=== PATIENT | male | born 1960 | race Caucasian/White ===

== ENCOUNTER → 2016-09-26 | Outpatient (CLI) | payer OTHER ==
[~2016-09-26] MED LIST: /CELE20CA OR; AMOX500C OR; BACL10TA2 PO; CELE-19 PO; CETI10TA OR; CLAR5CHW PO; DICL50TA2 PO; DICL75TA PO; GABA-283 PO; GABA300T OR; HEADACHE MED; IBUP200T45 PO; IBUP800T; IBUP800T OR; LISI20TA5; LISI20TA5 OR; LYRI75CA PO; MULTIVIT; OTC ALLERGY MED; OTC ALLERGY MED OR; OXYC-208 PO; OXYC10TA12 PO; PERC5TAB6 PO; PERC5TAB8 OR; PRIL20CA; PRIL20CA OR; PROV90AE IN; RYZOLT; SOMA250T; SOMA250T OR; SOMA350T OR; TIZA4CAP3 PO; TIZA4TAB OR; TRAM50TA2 OR; TRAM50TA2 PO; VICO5TAB; VICO5TAB OR; VICODINES TAB OR; ZANA2CAP OR; ZANA2CAP PO; [UNRECOGNIZED DRUG - CODE]; [UNRECOGNIZED DRUG - REMARK] INH; hydrocodone; pain cream TOP
--- NOTE | 2016-10-02 23:52 | ECWPNPC ---
PATIENT NAME: JASON VILLAFUERTE : 1960 GENDER: MALE VISIT DATE: 09/26/2016 DISCHARGE DATE: 09/26/16 1600 VISIT LOCKED DATE TIME: PHYSICIAN: GLENN BULLARD RESOURCE: GLENN BULLARD REASON FOR APPOINTMENT 1. WC, BACK HISTORY OF PRESENT ILLNESS HISTORY OF PRESENT ILLNESS: PAIN THE PATIENT DESCRIBES THE PAIN... 55 YEAR OLD MALE PATIENT WITH HISTORY OF CHRONIC BACK PAIN. PATIENT DESCRIBES THE PAIN ACHING, SHARP, STABBING, TENDER, THROBBING, SORE, AND HAVING IT ALL THE TIME WITH A PAIN SCORE OF 7/10. 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 PATIENT RECEIVED A SIJ INJECTION ON 08-17-2016 AND REPORTS THAT HE HAD GOOD PAIN RELIEF FOR A MONTH AND THE PAIN THAT RADIATED DOWN TO HIS LEGS FROM HIS BACK IS GONE. PATIENT REPORTS THAT TAKING PERCOCET IF AFFECTING HIS STOMACH AND WOULD LIKE SOMETHING DIFFERENT. PATIENT STATES THAT TAKING TIZANIDINE DOES HELP HIM GREATLY AND INCREASES HIS MOBILITY AND FUNCTIONALITY. PATIENT DENIES UNEXPLAINABLE WEIGHT LOSS, FEVER, CHILLS, NEW CHANGES ON HIS URINARY OR BOWEL CONTROL. FALL RISK SCREENING: SCREENING :NO FALLS IN THE PAST YEAR CURRENT MEDICATIONS TAKING OMEPRAZOLE 20 MG CAPSULE DELAYED RELEASE 1 CAPSULE ORALLY BID TAKING TIZANIDINE HCL 4 MG TABLET 1 TABLET NEEDED ORALLY QHS TAKING LISINOPRIL 5 MG TABLET ORALLY NOT-TAKING PERCOCET 5-325 MG TABLET 1 TABLET NEEDED ORALLY EVERY 6-8 HRS PRN PAIN MDD=3, NOTES: CAUSING NAUSEA, NOT TAKING NOT-TAKING NASAL ALLERGY 5.2 MG/ACT AEROSOL SOLUTION 1 PUFF IN EACH NOSTRIL NEEDED NASALLY EVERY 4 HRS MEDICATION LIST REVIEWED AND RECONCILED WITH THE PATIENT PAST MEDICAL HISTORY NO MEDICAL HISTORY. ALLERGIES ENVIRONMENTAL: HAY FEVER: ALLERGY SURGICAL HISTORY NO SURGICAL HISTORY DOCUMENTED. FAMILY HISTORY NO FAMILY HISTORY DOCUMENTED. SOCIAL HISTORY GENERAL: TOBACCO USE ARE YOU A:CURRENT SMOKER PATIENT COUNSELED ON THE DANGERS OF TOBACCO USE AND URGED TO QUIT:09/26/2016 ARE YOU INTERESTED IN QUITTING?THINKING ABOUT QUITTING COUNSELED THE PATIENT ON SMOKING CESSATION, EDUCATION [id number] CAFFEINE CAFFEINE USE?YES HOW OFTEN AND HOW MUCH? 1 CUP PER DAY LEARNING BARRIERS / SPECIAL NEEDS ORIENTED TO PLAN OF CARE: PATIENT, PAIN MANAGEMENT PATIENT, ORIENTED TO PLAN OF CARE: PATIENT, PAIN MANAGEMENT PATIENT. NEW PATIENT PAIN DIARY TODAY'S VISITNOTES FROM 0-10, WHAT LEVEL IS YOUR PAIN TODAY?0 PAIN CLINIC PFS, CLERGY, PUBLIC HEALTH REFERRALS PFS REFERRAL NEEDED?NO CLERGY REFERRAL NEEDED?NO PUBLIC HEALTH REFERRAL NEEDED?NO WAS THE PROVIDER NOTIFIED OF ANY PERTINENT INFO?NO PFS REFERRAL NEEDED?NO CLERGY REFERRAL NEEDED?NO PUBLIC HEALTH REFERRAL NEEDED?NO WAS THE PROVIDER NOTIFIED OF ANY PERTINENT INFO?NO REVIEWED BY: DS. HOSPITALIZATION/MAJOR DIAGNOSTIC PROCEDURE NO HOSPITALIZATION HISTORY. REVIEW OF SYSTEMS CONSTITUTIONAL: ANY CHANGE IN YOUR MEDICAL CONDITION? NO . CHILLS NO . FEVER NO . INFECTION: DO YOU HAVE NEW INFECTIONS? NO . DO YOU HAVE HISTORY OF MRSA? NO . MUSCULOSKELETAL: ANY NEW PATTERNS OF PAIN OR NUMBNESS? YES, PT STATES THAT LOW BACK PAIN HAS INTENSIFIED AND CONTINUOUS IN RIGHT LOW BACK . GASTROENTEROLOGY: ANY NEW CHANGE IN BOWEL CONTROL? NO . GENITOURINARY: ANY NEW CHANGE IN BLADDER CONTROL? NO . IS THERE A CHANCE YOU COULD BE ? NO . HEMATOLOGY/LYMPH: DO YOU TAKE ANY BLOOD THINNERS? (FOR EXAMPLE- COUMADIN, PLAVIX, AGGRENOX, PLATEL, PRADAXA, OR XARELTO) NO . WHEN WAS YOUR LAST DOSE? DATE: TIME: . NEUROLOGY: HAVE YOU FALLEN IN THE PAST 6 MONTHS? NO . ANY NEW EXTREMITY NUMBNESS OR WEAKNESS? NO . CARDIOLOGY: DO YOU HAVE A PACEMAKER OR DEFIBRILLATOR? NO . RESPIRATORY: HAVE YOU BEEN SICK IN THE PAST WEEK? NO . FEVER NO . FLU LIKE SYMPTOMS? NO . COUGH NO . INTEGUMENTARY: DO YOU HAVE ANY RASHES OR OPEN SORES? NO . ALLERGIC/IMMUNO: ARE YOU ALLERGIC TO SHELLFISH OR IV DYE? NO . ANY NEW ALLERGIES? NO . PSYCHIATRIC: DO YOU HAVE THOUGHTS OF HURTING YOURSELF OR SOMEONE ELSE? NO . ARE YOU ABUSED, NEGLECTED, OR IN AN UNSAFE ENVIRONMENT? NO . ENDOCRINOLOGY: ARE YOU DIABETIC? NO . OTHER: DO YOU NEED ANY PRESCRIPTIONS? YES, PT STATES THAT CURRENT PAIN MEDICATIONS ARE CAUSING NAUSEA. . IF YES, PLEASE LIST: ____ . ANY NEW PROBLEMS WITH YOUR MEDICATIONS? NO . WHEN DID YOU LAST EAT? ____ . WHEN DID YOU LAST DRINK? ____ . WHAT DID YOU LAST DRINK? ____ . NAME OF PERSON DRIVING YOU HOME? ____ . DO YOU HAVE ANY OTHER QUESTIONS OR CONCERNS YES, PT REFUSING ANY SMOKING CESSATION COUSELING AT THIS TIME. . REVIEWED BY: PROVIDER: GLENN BULLARD MD . VITAL SIGNS WT 180 LBS, HT 69 IN, BMI 26.58 INDEX, BP 138/83 MM HG, HR 63 /MIN, RR 16 /MIN, TEMP 99.2 F, OXYGEN SAT % 99%, SAFE IN ENV? (Y/N) Y, NA INITIALS SC 14:29, REVIEWED BY: MERVIN. EXAMINATION : PATIENT IS ALERT O X 3 AND COOPERATIVE. PATIENT AMBULATES WITH AN ANTALGIC GAIT. SURGICAL SCAR IN THE LUMBAR AREA APPROXIMATELY 10 INCHES IN LENGTH. TENDERNESS IN THE LOWER BACK AND PARASPINAL MUSCLE GROUP. RIGHT LEG IS WEAKER THAN THE LEFT AT EXTENSION AND FLEXION. LUMBAR MRI DONE ON 06/09/16 SHOWS MULTIPLE DISC BULGES AND CANAL STENOSIS. ASSESSMENTS POSTLAMINECTOMY SYNDROME, NOT ELSEWHERE CLASSIFIED - M96.1 (PRIMARY) TREATMENT POSTLAMINECTOMY SYNDROME, NOT ELSEWHERE CLASSIFIED NOTES: WE DISCUSSED SEVERAL ISSUES WITH MR. VILLAFUERTE'S PAIN MANAGEMENT CASE. I WILL REFILL TIZANIDINE IT HELPS THE PATIENT WITH INCREASING HIS MOBILITY AND FUNCTIONALITY. PATIENT STATED THAT TAKING PERCOCET UPSETS HIS STOMACH, PATIENT WILL START ON OXYCODONE TODAY. I WILL ORDER URINE TOX TODAY. PATIENT IS A GOOD CANDIDATE FOR A LUMBAR FACET BLOCK THERAPEUTIC. WE DISCUSS THE RISK, ALTERNATIVES, AND BENEFITS AND THE PATIENT WOULD LIKE TO PROCEED. PATIENT WILL BE BOOKED PENDING APPROVAL. PATIENT TO FOLLOW UP WITH ME IN 3 WEEKS. INSTRUCTIONS WERE GIVEN, QUESTIONS WERE ANSWERED, PATIENT REPORTS UNDERSTANDING AND AGREES WITH THE PLAN. I, LUIS EDUARDO RODAS, DOCUMENTED THE ABOVE INFORMATION ACTING A SCRIBE FOR DR. BULLARD. I HAVE REVIEWED THE ABOVE DOCUMENT, WRITTEN BY LUIS EDUARDO [employer] AND I VERIFY THAT IT IS ACCURATE. OTHERS REFILL TIZANIDINE HCL TABLET, 4 MG, 1 TABLET NEEDED, ORALLY, QHS PRN FOR SPASMS AND PAIN MDD1, 30 DAY(S), 20, REFILLS 2 START OXYCODONE HCL TABLET, 5 MG, 1 TABLET, ORALLY, EVERY 6 PRN FOR PAIN MDD3, 30 DAY(S), 90, REFILLS 0 PROCEDURES PN WORKMANS' COMP OPINION IN YOUR OPINION, WAS THE INCIDENT THAT THE PATIENT DESCRIBED THE COMPETENT MEDICAL CAUSE OF THIS INJURY/ILLNESS? YES ARE THE PATIENT'S COMPLAINTS CONSISTENT WITH HIS/HER HISTORY OF THE INJURY/ILLNESS? YES IS THE PATIENT'S HISTORY OF THE INJURY/ILLNESS CONSISTENT WITH YOUR OBJECTIVE FINDING? YES WHAT IS THE PERCENTAGE OF TEMPORARY IMPAIRMENT? MODERATE TO MARKED = 66.7% IS THE PATIENT WORKING? YES DOCTOR ON SITE: GLENN NICHOLS MD PROCEDURE CODES FA211 ESTABILISHED PATIENT [facility] CHARGE G8730 PAIN ASSESS POS TOOL F/U PLAN DOC G8427 DOC MEDS VERIFIED W/PT OR RE FOLLOW UP 3 WEEKS, LFBT PENDING APPROVAL ELECTRONICALLY SIGNED BY GLENN BULLARD MD ON 10/02/2016 AT 08:47 PM EST DISCLAIMER : THIS IS A VISIT SUMMARY EXTRACTED FROM THE [email or web address] CHART. IT IS NOT A COPY OF THE [email or web address] PROGRESS NOTE. RACHEL
== END ==
LOC: M PAIN 14:20
PROVIDERS: ATTEND Anesthesiology
DX: Z09 Encounter for follow-up examination after completed treatment for conditions other than malignant neoplasm (principal); G89.21 Chronic pain due to trauma; M96.1 Postlaminectomy syndrome, not elsewhere classified; J30.89 Other allergic rhinitis; F17.200 Nicotine dependence, unspecified, uncomplicated; Z79.899 Other long term (current) drug therapy

== ENCOUNTER → 2016-11-22 | Outpatient (CLI) | payer OTHER ==
[~2016-11-22] MED LIST changes: +BUPIVACAINE HCL 0.25% 30 ML VIAL As Ordered ONE; +ISOVUE-M 300 61% 15ML VIAL (Q9967) As Ordered ONE; +LIDOCAINE 1% SDV INJ 30 ML VIAL As Ordered ONE; +TRIAMCINOLONE ACETONIDE SUSP 40 MG/ML VIAL (J3301) As Ordered ONE; +diazePAM 5 MG TAB As Ordered ONE; +oxyCODONE 5MG TAB As Ordered ONE
--- NOTE | 2016-11-22 14:01 | REP ---
PARTIAL LUMBAR SPINE SERIES: Four views. HISTORY: Injection procedure for pain. 28 seconds of fluoroscopy time is reported. FINDINGS: A sequence of four fluoroscopically obtained intraprocedural spot radiographs of the lumbar spine document needle position for facet injection procedure. Signed by Tito Bueno MD 11/22/2016 02:20 P
--- NOTE | 2016-11-28 00:07 | ECWPNPC ---
PATIENT NAME: JASON VILLAFUERTE : 1960 GENDER: MALE VISIT DATE: 11/22/2016 DISCHARGE DATE: 11/22/16 1047 VISIT LOCKED DATE TIME: PHYSICIAN: GLENN BULLARD RESOURCE: GLENN BULLARD REASON FOR APPOINTMENT 1. LFBT HISTORY OF PRESENT ILLNESS HISTORY OF PRESENT ILLNESS: PAIN THE PATIENT DESCRIBES THE PAIN... FALL RISK SCREENING: SCREENING :NO FALLS IN THE PAST YEAR CURRENT MEDICATIONS TAKING TIZANIDINE HCL 4 MG TABLET 1 TABLET NEEDED ORALLY QHS PRN FOR SPASMS AND PAIN MDD1, NOTES: 3 DAYS AGO TAKING OMEPRAZOLE 20 MG CAPSULE DELAYED RELEASE 1 CAPSULE ORALLY BID, NOTES: 11-21-16 2100 TAKING OXYCODONE HCL 5 MG TABLET 1 TABLET ORALLY EVERY 6 PRN FOR PAIN MDD3, NOTES: 11-22-16 0500 DISCONTINUED LISINOPRIL 5 MG TABLET ORALLY DISCONTINUED PERCOCET 5-325 MG TABLET 1 TABLET NEEDED ORALLY EVERY 6-8 HRS PRN PAIN MDD=3, NOTES: CAUSING NAUSEA, NOT TAKING DISCONTINUED NASAL ALLERGY 5.2 MG/ACT AEROSOL SOLUTION 1 PUFF IN EACH NOSTRIL NEEDED NASALLY EVERY 4 HRS MEDICATION LIST REVIEWED AND RECONCILED WITH THE PATIENT ALLERGIES ENVIRONMENTAL: HAY FEVER: ALLERGY SOCIAL HISTORY GENERAL: TOBACCO USE ARE YOU A:NONSMOKER LEARNING BARRIERS / SPECIAL NEEDS ORIENTED TO PLAN OF CARE: PATIENT, PAIN MANAGEMENT PATIENT, ORIENTED TO PLAN OF CARE: PATIENT, PAIN MANAGEMENT PATIENT. NEW PATIENT PAIN DIARY TODAY'S VISITNOTES FROM 0-10, WHAT LEVEL IS YOUR PAIN TODAY?0 PAIN CLINIC PFS, CLERGY, PUBLIC HEALTH REFERRALS PFS REFERRAL NEEDED?NO CLERGY REFERRAL NEEDED?NO PUBLIC HEALTH REFERRAL NEEDED?NO WAS THE PROVIDER NOTIFIED OF ANY PERTINENT INFO?NO PFS REFERRAL NEEDED?NO CLERGY REFERRAL NEEDED?NO PUBLIC HEALTH REFERRAL NEEDED?NO WAS THE PROVIDER NOTIFIED OF ANY PERTINENT INFO?NO REVIEW OF SYSTEMS CONSTITUTIONAL: ANY CHANGE IN YOUR MEDICAL CONDITION? NO . CHILLS NO . FEVER NO . INFECTION: DO YOU HAVE NEW INFECTIONS? NO . DO YOU HAVE HISTORY OF MRSA? NO . MUSCULOSKELETAL: ANY NEW PATTERNS OF PAIN OR NUMBNESS? NO . GASTROENTEROLOGY: ANY NEW CHANGE IN BOWEL CONTROL? NO . GENITOURINARY: ANY NEW CHANGE IN BLADDER CONTROL? NO . IS THERE A CHANCE YOU COULD BE ? NO . HEMATOLOGY/LYMPH: DO YOU TAKE ANY BLOOD THINNERS? (FOR EXAMPLE- COUMADIN, PLAVIX, AGGRENOX, PLATEL, PRADAXA, OR XARELTO) NO . WHEN WAS YOUR LAST DOSE? DATE: TIME: . NEUROLOGY: HAVE YOU FALLEN IN THE PAST 6 MONTHS? NO . ANY NEW EXTREMITY NUMBNESS OR WEAKNESS? NO . CARDIOLOGY: DO YOU HAVE A PACEMAKER OR DEFIBRILLATOR? NO . RESPIRATORY: HAVE YOU BEEN SICK IN THE PAST WEEK? NO . FEVER NO . FLU LIKE SYMPTOMS? NO . COUGH NO . INTEGUMENTARY: DO YOU HAVE ANY RASHES OR OPEN SORES? NO . ALLERGIC/IMMUNO: ARE YOU ALLERGIC TO SHELLFISH OR IV DYE? NO . ANY NEW ALLERGIES? NO . PSYCHIATRIC: DO YOU HAVE THOUGHTS OF HURTING YOURSELF OR SOMEONE ELSE? NO . ARE YOU ABUSED, NEGLECTED, OR IN AN UNSAFE ENVIRONMENT? NO . ENDOCRINOLOGY: ARE YOU DIABETIC? NO . OTHER: DO YOU NEED ANY PRESCRIPTIONS? YES . IF YES, PLEASE LIST: OXYCODONE . ANY NEW PROBLEMS WITH YOUR MEDICATIONS? NO . WHEN DID YOU LAST EAT? 11-21-16 PM . WHEN DID YOU LAST DRINK? 11-21-16 PM . WHAT DID YOU LAST DRINK? WATER . NAME OF PERSON DRIVING YOU HOME? RICARDA- DAUGHTER . DO YOU HAVE ANY OTHER QUESTIONS OR CONCERNS NO . REVIEWED BY: PROVIDER: . VITAL SIGNS WT 180 LBS, HT 69 IN, BMI 26.58 INDEX, BP 133/83 MM HG, HR 54 /MIN, RR 16 /MIN, TEMP 98.3 F, OXYGEN SAT % 99%, NA INITIALS SC 08:52, REVIEWED BY: CM. ASSESSMENTS SPONDYLOSIS WITHOUT MYELOPATHY OR RADICULOPATHY, LUMBAR REGION - M47.816 (PRIMARY) SPONDYLOSIS WITHOUT MYELOPATHY OR RADICULOPATHY, LUMBOSACRAL REGION - M47.817 TREATMENT OTHERS REFILL OXYCODONE HCL TABLET, 5 MG, 1 TABLET, ORALLY, EVERY 6 PRN FOR PAIN MDD3, 30 DAY(S), 90, REFILLS 0, NOTES: 11-22-16 0500 PROCEDURES PN LUMBAR FACET BLOCK THERAPEUTIC PRE PROCEDURE DIAGNOSIS : , LUMBAR SPONDYLOSIS , LUMBOSACRAL SPONDYLOSIS POST PROCEDURE DIAGNOSIS : LUMBAR SPONDYLOSIS, LUMBOSACRAL SPONDYLOSIS PROCEDURE BILATERAL L4-L5 AND BILATERAL L5-S1 FACET THERAPEUTIC BLOCK SURGEON DR. GLENN BULLARD NEWS VIDEOTAPE EDITOR NONE ANESTHESIA LOCAL PRE PROCEDURE NOTE THE PATIENT HAS A HISTORY OF CHRONIC LOW BACK PAIN. I EVALUATE THE PATIENT AND REVIEWED THE CHART. I WENT OVER THE RISKS, ALTERNATIVES, AND BENEFITS ASSOCIATED WITH THIS PROCEDURE. THE PATIENT WOULD LIKE TO PROCEED AND GIVE CONSENT TO PERFORMED THE PROCEDURE. THE PATIENT DENIES UNEXPLAINABLE WEIGHT LOSS, FEVER, CHILLS, OR NEW CHANGES IN URINARY OR BOWEL CONTROL DESCRIPTION OF PROCEDURE THE PATIENT WAS BROUGHT TO THE PROCEDURE ROOM AND PLACED IN THE PRONE POSITION. THE LUMBOSACRAL AREA WAS CLEANED WITH CHLORAPREP SOLUTION AND DRAPED ASEPTICALLY. THE PROCEDURE WAS DONE UNDER STERILE CONDITIONS. I CHECKED LATERALITY AND THE LEVEL WHERE THE PROCEDURE WAS GOING TO BE PERFORMED WITH THE PATIENT AND THE SUPPORTING STAFF AT THE MOMENT OF THE TIME OUT IN THE PROCEDURE ROOM. UNDER FLUOROSCOPIC GUIDANCE, THE TARGET POINT WAS SELECTED AT THE RIGHT AND LEFT L4-L5 AND RIGHT AND LEFT L5-S1 FACET JOINT. TARGET POINT WAS SELECTED AFTER LATERAL ROTATION AND TILT OF THE MAGNIFIER OF THE C-ARM. LIDOCAINE 0.5% WAS USED TO NUMB THE SKIN AND THE SUBCUTANEOUS TISSUE BELOW IT. SPINAL NEEDLES, 22-GAUGE, WERE ADVANCED UNDER FLUOROSCOPIC GUIDANCE AND FOLLOWING PATIENT FEEDBACK UNTIL THE TARGETS WERE TOUCHED. THE POSITION OF THE NEEDLES WAS VERIFIED WITH AP AND LATERAL VIEWS. AFTER PROPER POSITION OF THE NEEDLES WAS ACHIEVED, ISOVUE-M DYE 30% 0.1 ML WAS INJECTED SHOWING ADEQUATE SPREAD OF THE DYE. THEN A SOLUTION OF 1.9 ML OF BUPIVACAINE 0.125% OF KENALOG 10 MG WAS INJECTED AT EACH SITE. THERE WAS NO EVIDENCE OF BLOOD, PARESTHESIA OR CEREBROSPINAL FLUID DURING THE PROCEDURE. THE PATIENT WAS SENT TO THE RECOVERY ROOM. THE PATIENT WAS MOVING THE EXTREMITIES AND DOING WELL. THERE WAS NO COMPLICATION DURING THE PROCEDURE. FLUOROSCOPY TIME WAS 28 SECONDS POST PROCEDURE NOTE THE PATIENT WILL BE SEEN IN A FOLLOW UP IN THE NEXT FEW WEEKS. INSTRUCTIONS WERE GIVEN, QUESTIONS WERE ANSWERED, AND THE PATIENT EXPRESSED UNDERSTANDING AND AGREES WITH THE PLAN. INSTRUCTIONS WERE GIVEN, QUESTIONS WERE ANSWERED, PATIENT REPORTS UNDERSTANDING AND AGREES WITH THE PLAN. I, ULIS EDUARDO RODAS, DOCUMENTED THE ABOVE INFORMATION ACTING A SCRIBE FOR DR. BULLARD. I HAVE REVIEWED THE ABOVE DOCUMENT, WRITTEN BY LUIS EDUARDO [employer] AND I VERIFY THAT IT IS ACCURATE. PN WORKMANS' COMP OPINION IN YOUR OPINION, WAS THE INCIDENT THAT THE PATIENT DESCRIBED THE COMPETENT MEDICAL CAUSE OF THIS INJURY/ILLNESS? YES ARE THE PATIENT'S COMPLAINTS CONSISTENT WITH HIS/HER HISTORY OF THE INJURY/ILLNESS? YES IS THE PATIENT'S HISTORY OF THE INJURY/ILLNESS CONSISTENT WITH YOUR OBJECTIVE FINDING? YES WHAT IS THE PERCENTAGE OF TEMPORARY IMPAIRMENT? MODERATE TO MARKED = 66.7% IS THE PATIENT WORKING? NO DOCTOR ON SITE: GLENN NICHOLS MD DIAGNOSTIC IMAGING [facility] FACET BLOCK (PAIN)[id number] PROCEDURE CODES 42766 INJ PARAVERT F JNT L/S 1 LEV 18579 INJ PARAVERT F JNT L/S 2 LEV 6045F RADXPS IN END [id number] PXD DISPOSITION & COMMUNICATION FOLLOW UP 3 WEEKS ELECTRONICALLY SIGNED BY GLENN BULLARD MD ON 11/27/2016 AT 05:25 PM EDT DISCLAIMER : THIS IS A VISIT SUMMARY EXTRACTED FROM THE [employer] CHART. IT IS NOT A COPY OF THE [employer] PROGRESS NOTE. RACHEL
== END ==
LOC: M PAIN 09:00
PROVIDERS: ATTEND Anesthesiology
DX: G89.29 Other chronic pain (principal); M47.816 Spondylosis without myelopathy or radiculopathy, lumbar region; M47.817 Spondylosis without myelopathy or radiculopathy, lumbosacral region; J30.89 Other allergic rhinitis; Z79.891 Long term (current) use of opiate analgesic; Z79.899 Other long term (current) drug therapy
CPT/HCPCS: 64493; 64494; J3301; Q9967

== ENCOUNTER → 2016-12-29 | Outpatient (CLI) | payer OTHER ==
[~2016-12-29] MED LIST changes: -BUPIVACAINE HCL 0.25% 30 ML VIAL As Ordered ONE; -ISOVUE-M 300 61% 15ML VIAL (Q9967) As Ordered ONE; -LIDOCAINE 1% SDV INJ 30 ML VIAL As Ordered ONE; -TRIAMCINOLONE ACETONIDE SUSP 40 MG/ML VIAL (J3301) As Ordered ONE; -diazePAM 5 MG TAB As Ordered ONE; -oxyCODONE 5MG TAB As Ordered ONE
== END ==
LOC: M PAIN 15:00
PROVIDERS: ATTEND Anesthesiology
DX: Z53.29 Procedure and treatment not carried out because of patient's decision for other reasons (principal)

== ENCOUNTER → 2017-01-26 | Outpatient (CLI) | payer OTHER ==
--- NOTE | 2017-02-07 02:29 | ECWPNPC ---
PATIENT NAME: JASON VILLAFUERTE : 1960 GENDER: MALE VISIT DATE: 01/26/2017 DISCHARGE DATE: 01/26/17 1557 VISIT LOCKED DATE TIME: PHYSICIAN: GLENN BULLARD RESOURCE: GLENN BULLARD REASON FOR APPOINTMENT 1. WC HISTORY OF PRESENT ILLNESS GENERAL: 55 YEAR OLD MALE PATIENT WITH HISTORY OF CHRONIC BACK PAIN. PATIENT DESCRIBES THE PAIN ACHING, SHARP, STABBING, TENDER, THROBBING, SORE, AND SHOOTING WITH A PAIN SCORE OF 3-4/10 ON TODAY'S VISIT. 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 PATIENT REPORTS OF HAVING 3 BACK SURGERIES IN THE PAST. PATIENT STATES THAT HE TRIED PHYSICAL THERAPY IN THE PAST AND IT HELPED FOR A BIT AND HE DOES PHYSICAL THERAPY EXERCISES AT HOME. PATIENT RECEIVED A BILATERAL FACET BLOCK THERAPEUTIC INJECTION ON 11/22/2016 AND STATES THAT THE INJECTION PROVIDED OVER 50 PERCENT OF PAIN RELIEF AND AT THIS TIME HE IS STILL BENEFITTING FROM THE INJECTION WITH INCREASED MOBILITY AND FUNCTIONALITY AND HE IS SLEEPING A LITTLE BIT BETTER. PATIENT DENIES UNEXPLAINABLE WEIGHT LOSS, FEVER, CHILLS, NEW CHANGES ON HIS URINARY OR BOWEL CONTROL. CURRENT MEDICATIONS TAKING TIZANIDINE HCL 4 MG TABLET 1 TABLET NEEDED ORALLY QHS PRN FOR SPASMS AND PAIN MDD1 TAKING OMEPRAZOLE 20 MG CAPSULE DELAYED RELEASE 1 CAPSULE ORALLY BID TAKING OXYCODONE HCL 5 MG TABLET 1 TABLET ORALLY EVERY 6 PRN FOR PAIN MDD3 MEDICATION LIST REVIEWED AND RECONCILED WITH THE PATIENT ALLERGIES ENVIRONMENTAL: HAY FEVER: ALLERGY VITAL SIGNS WT 180 LBS, HT 69 IN, BMI 26.58 INDEX, BP 137/96 MM HG, HR 72 /MIN, RR 16 /MIN, TEMP 98.3 F, OXYGEN SAT % 93%, NA INITIALS AW 1505. EXAMINATION GENERAL: PATIENT IS ALERT O X 3 AND COOPERATIVE. PATIENT AMBULATES WITH AN ANTALGIC GAIT. SURGICAL SCAR IN THE LUMBAR AREA APPROXIMATELY 10 INCHES IN LENGTH. TENDERNESS IN THE LOWER BACK AND PARASPINAL MUSCLE GROUP. LUMBAR MRI DONE ON 06/09/16 SHOWS MULTIPLE DISC BULGES AND CANAL STENOSIS. ASSESSMENTS POSTLAMINECTOMY SYNDROME, NOT ELSEWHERE CLASSIFIED - M96.1 (PRIMARY) TREATMENT POSTLAMINECTOMY SYNDROME, NOT ELSEWHERE CLASSIFIED NOTES: WE DISCUSSED SEVERAL ISSUES WITH MR. VILLAFUERTE'S PAIN MANAGEMENT CASE. PATIENT WILL RECEIVED A REFILL OF TIZANIDINE, OMEPRAZOLE, AND OXYCODONE. PATIENT IS TAKING TIZANIDINE AND OXYCODONE FOR SOMATIC PAIN. PATIENT EXPRESSES THAT HIS PAIN IS CONTROLLABLE AT THIS TIME AND IS DOING WELL, PATIENT WILL FOLLOW UP WITH ME IN 10 WEEKS. INSTRUCTIONS WERE GIVEN, QUESTIONS WERE ANSWERED, PATIENT REPORTS UNDERSTANDING AND AGREES WITH THE PLAN. I, LUIS EDUARDO RODAS, DOCUMENTED THE ABOVE INFORMATION ACTING A SCRIBE FOR DR. BULLARD. I HAVE REVIEWED THE ABOVE DOCUMENT, WRITTEN BY LUIS EDUARDO RODAS SCRIBE AND I VERIFY THAT IT IS ACCURATE. OTHERS REFILL TIZANIDINE HCL TABLET, 4 MG, 1 TABLET NEEDED, ORALLY, QHS PRN FOR SPASMS AND PAIN MDD1, 30 DAY(S), 20, REFILLS 2 REFILL OMEPRAZOLE CAPSULE DELAYED RELEASE, 20 MG, 1 CAPSULE, ORALLY, BID, 30 DAY(S), 60 CAPSULE, REFILLS 2 REFILL OXYCODONE HCL TABLET, 5 MG, 1 TABLET, ORALLY, EVERY 6 PRN FOR PAIN MDD4, 30 DAY(S), 90, REFILLS 0 PROCEDURES PN WORKMANS' COMP OPINION IN YOUR OPINION, WAS THE INCIDENT THAT THE PATIENT DESCRIBED THE COMPETENT MEDICAL CAUSE OF THIS INJURY/ILLNESS? YES ARE THE PATIENT'S COMPLAINTS CONSISTENT WITH HIS/HER HISTORY OF THE INJURY/ILLNESS? YES IS THE PATIENT'S HISTORY OF THE INJURY/ILLNESS CONSISTENT WITH YOUR OBJECTIVE FINDING? YES WHAT IS THE PERCENTAGE OF TEMPORARY IMPAIRMENT? MODERATE TO MARKED = 66.7% IS THE PATIENT WORKING? YES DOCTOR ON SITE: GLENN NICHOLS MD PROCEDURE CODES FA211 ESTABILISHED PATIENT [facility] FACILITY CHARGE G8730 PAIN ASSESS POS TOOL F/U PLAN DOC G8427 DOC MEDS VERIFIED W/PT OR RE DISPOSITION & COMMUNICATION FOLLOW UP 10 WEEK ELECTRONICALLY SIGNED BY GLENN BULLARD MD ON 02/06/2017 AT 07:47 PM EDT DISCLAIMER : THIS IS A VISIT SUMMARY EXTRACTED FROM THE [employer] CHART. IT IS NOT A COPY OF THE [employer] PROGRESS NOTE. RACHEL
== END ==
LOC: M PAIN 15:00
PROVIDERS: ATTEND Anesthesiology
DX: M96.1 Postlaminectomy syndrome, not elsewhere classified (principal); J30.89 Other allergic rhinitis; Z79.891 Long term (current) use of opiate analgesic; Z79.899 Other long term (current) drug therapy

== ENCOUNTER → 2017-04-13 | Outpatient (CLI) | payer OTHER ==
[~2017-04-13] MED LIST changes: -CELE-19 PO; +CELE1CAP4 PO; +PERC5TAB12 PO; -PERC5TAB6 PO
--- NOTE | 2017-05-02 02:02 | ECWPNPC ---
PATIENT NAME: JASON VILLAFUERTE : 1960 GENDER: MALE VISIT DATE: 04/13/2017 DISCHARGE DATE: 04/13/17 1611 VISIT LOCKED DATE TIME: PHYSICIAN: GLENN BULLARD RESOURCE: GLENN BULLARD REASON FOR APPOINTMENT 1. W/C BACK PAIN HISTORY OF PRESENT ILLNESS HISTORY OF PRESENT ILLNESS: PAIN THE PATIENT DESCRIBES THE PAIN... 55 YEAR OLD MALE PATIENT WITH HISTORY OF CHRONIC BACK PAIN. PATIENT DESCRIBES THE PAIN ACHING, SHARP, STABBING, TENDER, THROBBING, SORE, AND SHOOTING WITH A PAIN SCORE OF 3-4/10 ON TODAY'S VISIT. 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 PATIENT WAS WORKING ON A [employer] FENCE WHEN HE WENT OVER THE TOP AND FELL, TWISTING AND INJURING HIS BACK. PATIENT REPORTS OF HAVING 3 BACK SURGERIES IN THE PAST. PATIENT STATES THAT HE TRIED PHYSICAL THERAPY IN THE PAST AND IT HELPED FOR A BIT AND HE DOES PHYSICAL THERAPY EXERCISES AT HOME. PATIENT RECEIVED A BILATERAL FACET BLOCK THERAPEUTIC INJECTION ON 11/22/2016 AND STATES THAT THE INJECTION PROVIDED OVER 50 PERCENT OF PAIN RELIEF FOR OVER 3 MONTHS AND AT THIS TIME HE IS STILL BENEFITTING FROM THE INJECTION WITH INCREASED MOBILITY AND FUNCTIONALITY AND HE IS SLEEPING A LITTLE BIT BETTER. PATIENT DENIES UNEXPLAINABLE WEIGHT LOSS, FEVER, CHILLS, NEW CHANGES ON HIS URINARY OR BOWEL CONTROL. FALL RISK SCREENING: SCREENING :NO FALLS IN THE PAST YEAR CURRENT MEDICATIONS TAKING TIZANIDINE HCL 4 MG TABLET 1 TABLET NEEDED ORALLY QHS PRN FOR SPASMS AND PAIN MDD1 TAKING OMEPRAZOLE 20 MG CAPSULE DELAYED RELEASE 1 CAPSULE ORALLY BID TAKING OXYCODONE HCL 5 MG TABLET 1 TABLET ORALLY EVERY 6 PRN FOR PAIN MDD4 TAKING AMLODIPINE BESYLATE 5 MG TABLET 1 TABLET ORALLY ONCE A DAY MEDICATION LIST REVIEWED AND RECONCILED WITH THE PATIENT ALLERGIES ENVIRONMENTAL: HAY FEVER: ALLERGY REVIEW OF SYSTEMS REVIEWED BY: PROVIDER: GLENN BULLARD MD . CONSTITUTIONAL: ANY CHANGE IN YOUR MEDICAL CONDITION? NO . CHILLS NO . FEVER NO . INFECTION: DO YOU HAVE NEW INFECTIONS? NO . DO YOU HAVE HISTORY OF MRSA? NO . MUSCULOSKELETAL: ANY NEW PATTERNS OF PAIN OR NUMBNESS? YES PT REPORTS HIS PAIN FLUCTUATES, HE STATES PAIN IS WORSE IN THE MORNING. . GASTROENTEROLOGY: ANY NEW CHANGE IN BOWEL CONTROL? NO . GENITOURINARY: ANY NEW CHANGE IN BLADDER CONTROL? NO . IS THERE A CHANCE YOU COULD BE ? NO . HEMATOLOGY/LYMPH: DO YOU TAKE ANY BLOOD THINNERS? (FOR EXAMPLE- COUMADIN, PLAVIX, AGGRENOX, PLATEL, PRADAXA, OR XARELTO) NO . WHEN WAS YOUR LAST DOSE? DATE: TIME: . NEUROLOGY: HAVE YOU FALLEN IN THE PAST 6 MONTHS? NO . ANY NEW EXTREMITY NUMBNESS OR WEAKNESS? NO . CARDIOLOGY: DO YOU HAVE A PACEMAKER OR DEFIBRILLATOR? NO . RESPIRATORY: HAVE YOU BEEN SICK IN THE PAST WEEK? NO . FEVER NO . FLU LIKE SYMPTOMS? NO . COUGH NO . INTEGUMENTARY: DO YOU HAVE ANY RASHES OR OPEN SORES? NO . ALLERGIC/IMMUNO: ARE YOU ALLERGIC TO SHELLFISH OR IV DYE? NO . ANY NEW ALLERGIES? NO . PSYCHIATRIC: DO YOU HAVE THOUGHTS OF HURTING YOURSELF OR SOMEONE ELSE? NO . ARE YOU ABUSED, NEGLECTED, OR IN AN UNSAFE ENVIRONMENT? NO . ENDOCRINOLOGY: ARE YOU DIABETIC? NO . OTHER: DO YOU NEED ANY PRESCRIPTIONS? NO . IF YES, PLEASE LIST: ____ . ANY NEW PROBLEMS WITH YOUR MEDICATIONS? NO . WHEN DID YOU LAST EAT? ____ . WHEN DID YOU LAST DRINK? ____ . WHAT DID YOU LAST DRINK? ____ . NAME OF PERSON DRIVING YOU HOME? ____ . DO YOU HAVE ANY OTHER QUESTIONS OR CONCERNS NO . VITAL SIGNS WT 180 LBS, HT 69 IN, BMI 26.58 INDEX, BP 150/92 MM HG, HR 57 /MIN, RR 18 /MIN, TEMP 97.6 F, OXYGEN SAT % 99%, SAFE IN ENV? (Y/N) YES, NA INITIALS 15:15, REVIEWED BY: AMBAR. EXAMINATION : PATIENT IS ALERT O X 3 AND COOPERATIVE. PATIENT AMBULATES WITH AN ANTALGIC GAIT. SURGICAL SCAR IN THE LUMBAR AREA APPROXIMATELY 10 INCHES IN LENGTH. TENDERNESS IN THE LOWER BACK AND PARASPINAL MUSCLE GROUP. LUMBAR MRI DONE ON 06/09/16 SHOWS MULTIPLE DISC BULGES AND CANAL STENOSIS. ASSESSMENTS POSTLAMINECTOMY SYNDROME, NOT ELSEWHERE CLASSIFIED - M96.1 (PRIMARY) SPONDYLOSIS WITHOUT MYELOPATHY OR RADICULOPATHY, LUMBAR REGION - M47.816 SPONDYLOSIS WITHOUT MYELOPATHY OR RADICULOPATHY, LUMBOSACRAL REGION - M47.817 TREATMENT POSTLAMINECTOMY SYNDROME, NOT ELSEWHERE CLASSIFIED NOTES: WE DISCUSSED SEVERAL ISSUES WITH MR. VILLAFUERTE'S PAIN MANAGEMENT CASE. PATIENT WILL RECEIVED A REFILL OF TIZANIDINE, OMEPRAZOLE, AND OXYCODONE. PATIENT IS TAKING TIZANIDINE AND OXYCODONE FOR SOMATIC PAIN. PATIENT DENIES ABUSE OF ANY MEDICATION, DENIES USE OF ILLEGAL SUBSTANCES, AND STATES THAT HE IS ONLY USING THE MEDICATION FOR PAIN MANAGEMENT. URINE TOXICOLOGY REPORT DONE ON 09/26/16 SHOWS CONSISTENT RESULTS WITH THE PATIENTS MEDICATION LIST. PATIENT EXPRESSES THAT HIS PAIN IS CONTROLLABLE AT THIS TIME AND IS DOING WELL, PATIENT WILL FOLLOW UP WITH ME IN 10 WEEKS. INSTRUCTIONS WERE GIVEN, QUESTIONS WERE ANSWERED, PATIENT REPORTS UNDERSTANDING AND AGREES WITH THE PLAN. I, KAZ VERMA, DOCUMENTED THE ABOVE INFORMATION ACTING A SCRIBE FOR DR. BULLARD. I HAVE REVIEWED THE ABOVE DOCUMENT, WRITTEN BY KAZ FALL AND I VERIFY THAT IT IS ACCURATE. OTHERS REFILL TIZANIDINE HCL TABLET, 4 MG, 1 TABLET NEEDED, ORALLY, QHS PRN FOR SPASMS AND PAIN MDD1, 30 DAY(S), 20, REFILLS 2 REFILL OXYCODONE HCL TABLET, 5 MG, 1 TABLET, ORALLY, EVERY 6 PRN FOR PAIN MDD4, 30 DAY(S), 90, REFILLS 0 PROCEDURES PN WORKMANS' COMP OPINION IN YOUR OPINION, WAS THE INCIDENT THAT THE PATIENT DESCRIBED THE COMPETENT MEDICAL CAUSE OF THIS INJURY/ILLNESS? YES ARE THE PATIENT'S COMPLAINTS CONSISTENT WITH HIS/HER HISTORY OF THE INJURY/ILLNESS? YES IS THE PATIENT'S HISTORY OF THE INJURY/ILLNESS CONSISTENT WITH YOUR OBJECTIVE FINDING? YES WHAT IS THE PERCENTAGE OF TEMPORARY IMPAIRMENT? MODERATE TO MARKED = 66.7% IS THE PATIENT WORKING? YES DOCTOR ON SITE: GLENN NICHOLS MD PROCEDURE CODES FA211 ESTABILISHED PATIENT [facility] FACILITY CHARGE G8427 DOC MEDS VERIFIED W/PT OR RE G8730 PAIN ASSESS POS TOOL F/U PLAN DOC DISPOSITION & COMMUNICATION FOLLOW UP 3 MONTHS ELECTRONICALLY SIGNED BY GLENN BULLARD MD ON 04/30/2017 AT 07:05 PM EDT DISCLAIMER : THIS IS A VISIT SUMMARY EXTRACTED FROM THE [employer] CHART. IT IS NOT A COPY OF THE [employer] PROGRESS NOTE. [facility]
== END ==
LOC: M PAIN 15:00
PROVIDERS: ATTEND Anesthesiology
DX: M96.1 Postlaminectomy syndrome, not elsewhere classified (principal); M47.816 Spondylosis without myelopathy or radiculopathy, lumbar region; M47.817 Spondylosis without myelopathy or radiculopathy, lumbosacral region; J30.2 Other seasonal allergic rhinitis; Z79.891 Long term (current) use of opiate analgesic; Z79.899 Other long term (current) drug therapy

== ENCOUNTER → 2017-09-18 | Outpatient (CLI) | payer OTHER | LOC: M PAIN 09:00 | DX: M96.1 Postlaminectomy syndrome, not elsewhere classified (principal); M47.816 Spondylosis without myelopathy or radiculopathy, lumbar region; M47.817 Spondylosis without myelopathy or radiculopathy, lumbosacral region; Z79.891 Long term (current) use of opiate analgesic; Z79.899 Other long term (current) drug therapy; Z87.891 Personal history of nicotine dependence; J30.2 Other seasonal allergic rhinitis | CPT/HCPCS: G0463 ==

== ENCOUNTER 2017-10-20 19:31 | Emergency (ER) | payer OTHER ==
[2017-10-20] MEDS: ONDANSETRON 4MG/2ML VIAL (J2405) IV (20:33)
[2017-10-20] MEDS: MORPHINE 4 MG/ML 1ML VIAL (J2270) IV (20:33)
[2017-10-20 20:48] LABS: BASO # 0.1 10^3/uL (0.0-0.2); BASO % 1.1 % (0.0-1.0); EOS # 0.9 10^3/uL (0.0-0.50); EOS % 9.6 % (0.0-3.0); HEMATOCRIT 41.5 % (42.0-52.0); HEMOGLOBIN 13.9 g/dl (14.0-18.0); IMMATURE GRANULOCYTE % 0.1 % (0-3.0); LYMPH # 3.6 10^3/uL (1.5-4.5); MEAN CORPUSCULAR HEMOGLOBIN 27.4 pg (27.0-33.0); MEAN CORPUSCULAR HGB CONC 33.5 g/dl (32.0-36.5); MEAN CORPUSCULAR VOLUME 81.7 fl (80.0-96.0); MONO # 0.9 10^3/uL (0.0-0.8); MONO % 10.3 % (0.0-5.0); NEUTROPHILS # 3.5 10^3/uL (1.8-7.7); NEUTROPHILS % 38.9 % (36.0-66.0); PLATELET COUNT, AUTOMATED 279 10^3/uL (150-450); RED BLOOD COUNT 5.08 10^6/uL (4.30-6.10); RED CELL DISTRIBUTION WIDTH 14.2 % (11.5-14.5); WHITE BLOOD COUNT 9.1 10^3/uL (4.0-10.0)
[2017-10-20 21:01] LABS: ALBUMIN/GLOBULIN RATIO 1.08 (1.00-1.93); ALKALINE PHOSPHATASE 79 U/L (45-117); ALT/SGPT 125 U/L (12-78); ANION GAP 11 MEQ/L (8-16); AST/SGOT 64 U/L (7-37); BILIRUBIN,DIRECT 0.3 MG/DL (0.0-0.2); BILIRUBIN,TOTAL 0.9 MG/DL (0.2-1.0); BLOOD UREA NITROGEN 13 MG/DL (7-18); CALCIUM LEVEL 8.8 MG/DL (8.5-10.1); CARBON DIOXIDE LEVEL 25 MEQ/L (21-32); CHLORIDE LEVEL 105 MEQ/L (98-107); CREATININE FOR GFR 0.94 MG/DL (0.70-1.30); GLOMERULAR FILTRATION RATE > 60.0 (>56); GLUCOSE, FASTING 90 MG/DL (70-100); LIPASE 325 U/L (73-393); POTASSIUM SERUM 3.7 MEQ/L (3.5-5.1); SODIUM LEVEL 141 MEQ/L (136-145); TOTAL PROTEIN 7.7 GM/DL (6.4-8.2)
[2017-10-20] MEDS ORDERED: ISOVUE-370 76% 100ML VIAL (Q9967) As Ordered (21:14)
== END 2017-10-20 22:46 | disposition home or self-care (01) ==
LOC: M ED 19:31
DX: K85.90 Acute pancreatitis without necrosis or infection, unspecified (principal); G89.29 Other chronic pain; M54.9 Dorsalgia, unspecified; F17.200 Nicotine dependence, unspecified, uncomplicated; K57.30 Diverticulosis of large intestine without perforation or abscess without bleeding; K76.0 Fatty (change of) liver, not elsewhere classified; N40.0 Benign prostatic hyperplasia without lower urinary tract symptoms; Z79.899 Other long term (current) drug therapy; Z88.8 Allergy status to other drugs, medicaments and biological substances
CPT/HCPCS: J2270

== ENCOUNTER 2018-01-12 15:45 | Emergency (ER) | payer OTHER ==
[2018-01-12] MEDS: diazePAM 5 MG TAB PO ×2 (17:01→18:00)
[2018-01-12] MEDS: ONDANSETRON 4MG/2ML VIAL (J2405) IV (17:02)
[2018-01-12] MEDS: MORPHINE 4 MG/ML 1ML VIAL/SYRINGE (J2270) IV (17:02)
[2018-01-12] MEDS: KETOROLAC 30 MG/ML VIAL (J1885) IV (17:02)
== END 2018-01-12 18:13 | disposition home or self-care (01) ==
LOC: M ED 15:45
DX: S16.1XXA Strain of muscle, fascia and tendon at neck level, initial encounter (principal); M54.12 Radiculopathy, cervical region; W19.XXXA Unspecified fall, initial encounter; Y92.099 Unspecified place in other non-institutional residence as the place of occurrence of the external cause; Y93.9 Activity, unspecified; Y99.9 Unspecified external cause status; I10 Essential (primary) hypertension; G89.29 Other chronic pain; M54.9 Dorsalgia, unspecified; F17.200 Nicotine dependence, unspecified, uncomplicated; J30.2 Other seasonal allergic rhinitis; Z79.899 Other long term (current) drug therapy; Z88.8 Allergy status to other drugs, medicaments and biological substances
CPT/HCPCS: J2270

== ENCOUNTER → 2018-01-18 | Outpatient (CLI) | payer OTHER | LOC: M PAIN 15:30 | DX: G89.29 Other chronic pain (principal); M96.1 Postlaminectomy syndrome, not elsewhere classified; M46.90 Unspecified inflammatory spondylopathy, site unspecified; M54.16 Radiculopathy, lumbar region; K21.9 Gastro-esophageal reflux disease without esophagitis; J30.1 Allergic rhinitis due to pollen; I10 Essential (primary) hypertension; Z79.891 Long term (current) use of opiate analgesic; Z79.899 Other long term (current) drug therapy; Z87.891 Personal history of nicotine dependence | CPT/HCPCS: G0463 ==

== ENCOUNTER 2018-08-30 22:04 | Emergency (ER) | payer OTHER ==
[~2018-08-30] VITALS: Ht 172.7 cm; Wt 84.1 kg
[~2018-08-30 22:04] MED LIST changes: +AMLO5TAB6 PO; -GABA-283 PO; +GABA-845 PO; +IBUP80TA PO; +TIZA4CAP PO; -TIZA4CAP3 PO; +VALI5TAB PO
[2018-08-30] MEDS ORDERED: KETOROLAC 60 MG/2 ML VIAL (J1885) IM ONE (23:00)
[2018-08-30 23:06] LABS: HEMATOCRIT 38.8 % (42.0-52.0); HEMOGLOBIN 12.9 g/dl (13.5-17.5); MEAN CORPUSCULAR HEMOGLOBIN 29.5 pg (27.0-33.0); MEAN CORPUSCULAR HGB CONC 33.2 g/dl (32.0-36.5); MEAN CORPUSCULAR VOLUME 88.8 fl (80.0-96.0); PLATELET COUNT, AUTOMATED 216 10^3/uL (150-450); RED BLOOD COUNT 4.37 10^6/uL (4.30-6.10); WHITE BLOOD COUNT 8.3 10^3/uL (4.0-10.0)
[2018-08-30 23:27] LABS: ERYTHROCYTE SEDIMENTATION RATE 4 mm/hr (0-20)
[2018-08-30 23:48] LABS: BLOOD UREA NITROGEN 20 MG/DL (7-18); C REACTIVE PROTEIN QUANTITATIV 1.15 MG/DL (0.00-0.30); CALCIUM LEVEL 8.5 MG/DL (8.5-10.1); CARBON DIOXIDE LEVEL 28 MEQ/L (21-32); CHLORIDE LEVEL 107 MEQ/L (98-107); CREATININE FOR GFR 1.24 MG/DL (0.70-1.30); GLOMERULAR FILTRATION RATE > 60.0 (>56); GLUCOSE, FASTING 117 MG/DL (70-100); POTASSIUM SERUM 3.7 MEQ/L (3.5-5.1); SODIUM LEVEL 140 MEQ/L (136-145); URIC ACID 5.1 MG/DL (3.5-7.2)
[2018-08-30] MEDS ORDERED: NAPR-50 PO (23:55)
[2018-08-31 00:02] VITALS: BP 141/93
== END 2018-08-31 00:04 | disposition home or self-care (01) ==
LOC: M ED 22:04
DX: M54.17 Radiculopathy, lumbosacral region (principal); I10 Essential (primary) hypertension; Z79.899 Other long term (current) drug therapy; F17.210 Nicotine dependence, cigarettes, uncomplicated
CPT/HCPCS: 36415; 80048; 84550; 85027; 85379; 85652; 86140; 96372; 99283; J1885

== ENCOUNTER → 2018-09-19 | Outpatient (CLI) | payer OTHER ==
[~2018-09-19] MED LIST changes: +NAPR-50 PO
--- NOTE | 2018-09-25 00:55 | ECWPNPC ---
PATIENT NAME: JASON VILLAFUERTE : 1960 GENDER: MALE VISIT DATE: 09/19/2018 DISCHARGE DATE: 09/19/18 08 VISIT LOCKED DATE TIME: PHYSICIAN: GLENN BULLARD MD RESOURCE: GLENN BULLARD MD REASON FOR APPOINTMENT 1. W/C BACK PAIN PER PATTI HISTORY OF PRESENT ILLNESS HISTORY OF PRESENT ILLNESS: PAIN THE PATIENT DESCRIBES THE PAIN... 57 YEAR OLD MALE PATIENT WITH A HISTORY OF CHRONIC LOW BACK PAIN. PATIENT DESCRIBES THE PAIN SHARP, STABBING, TENDER, SORE, SHOOTING, AND HAVING IT ALL THE TIME WITH A PAIN SCORE OF 6-10/10 DEPENDING ON PHYSICAL ACTIVITY. THE PATIENT SAYS THE PAIN INCREASES WHEN HE DOES A LOT OF MOVING AROUND. HIS PAIN HAS INCREASED SIGNIFICANTLY IN THE LAST MONTH, WITH PAIN TOWARDS THE LEFT LOWER BACK AREA. 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 PATIENT WAS WORKING ON A [employer] FENCE WHEN HE WENT OVER THE TOP AND FELL, TWISTING AND INJURING HIS BACK. THE PATIENT IS CURRENTLY TAKING OXYCODONE TO HELP CONTROL HIS PAIN, AND TO CONTINUE FUNCTIONING ALTHOUGH IN THE LAST MONTH THIS HAS BEEN VERY DIFFICULT DUE TO THE INCREASE IN THE PAIN. PATIENT DENIES UNEXPLAINABLE WEIGHT LOSS, FEVER, CHILLS, NEW CHANGES ON HIS URINARY OR BOWEL CONTROL. FALL RISK SCREENING: SCREENING :NO FALLS IN THE PAST YEAR CURRENT MEDICATIONS TAKING TIZANIDINE HCL 4 MG TABLET 1 TABLET NEEDED ORALLY QHS PRN FOR SPASMS AND PAIN MAY REPEAT IN 5 HRS MDD2 TAKING OMEPRAZOLE 20 MG CAPSULE DELAYED RELEASE 1 CAPSULE ORALLY ONCE DAILY TAKING AMLODIPINE BESYLATE 5 MG TABLET 1 TABLET ORALLY ONCE A DAY TAKING OXYCODONE HCL 5 MG TABLET 1 TABLET NEEDED ORALLY FOR PAIN DAILY TAKING OXYCODONE HCL 5 MG TABLET 1 TABLET ORALLY FOR PAIN DAILY MDD1 MEDICATION LIST REVIEWED AND RECONCILED WITH THE PATIENT PAST MEDICAL HISTORY CHRONIC BACK AND NECK PAIN GERD HTN ALLERGIES ENVIRONMENTAL: HAY FEVER: ALLERGY SURGICAL HISTORY 4 BACK SURGERY 2011 CERVICLE SURGERY 2011 CHOLECYSECTOMY 1994 FAMILY HISTORY NO FAMILY HISTORY DOCUMENTED. SOCIAL HISTORY GENERAL: TOBACCO USE ARE YOU A:CURRENT SMOKER ARE YOU INTERESTED IN QUITTING?THINKING ABOUT QUITTING COUNSELED THE PATIENT ON SMOKING CESSATION, EDUCATION [id number]/[id number] PATIENT COUNSELED ON THE DANGERS OF TOBACCO USE AND URGED TO QUIT:09/19/2018 ALCOHOL SCREENING DID YOU HAVE A DRINK CONTAINING ALCOHOL IN THE PAST YEAR?YES HOW OFTEN DID YOU HAVE SIX OR MORE DRINKS ON ONE OCCASION IN THE PAST YEAR?LESS THAN MONTHLY (1 POINT) HOW OFTEN DID YOU HAVE A DRINK CONTAINING ALCOHOL IN THE PAST YEAR?TWO TO FOUR TIMES A MONTH (2 POINTS) POINTS3 INTERPRETATIONNEGATIVE RECREATIONAL DRUG USE DRUG USE?NO CAFFEINE CAFFEINE USE?YES HOW OFTEN AND HOW MUCH? 2 CUPS EVERY MORNING LEARNING BARRIERS / SPECIAL NEEDS ORIENTED TO PLAN OF CARE: PATIENT, PAIN MANAGEMENT PATIENT, ORIENTED TO PLAN OF CARE: PATIENT, PAIN MANAGEMENT PATIENT. NEW PATIENT PAIN DIARY TODAY'S VISITNOTES FROM 0-10, WHAT LEVEL IS YOUR PAIN TODAY?0 PAIN CLINIC PFS, CLERGY, PUBLIC HEALTH REFERRALS PFS REFERRAL NEEDED?NO CLERGY REFERRAL NEEDED?NO PUBLIC HEALTH REFERRAL NEEDED?NO WAS THE PROVIDER NOTIFIED OF ANY PERTINENT INFO?NO HAS THE PATIENT BEEN EDUCATED REGARDING HIS/HER PLAN OF CARE?YES HAS THE PATIENT BEEN EDUCATED REGARDING PAIN, THE RISK FOR PAIN, THE IMPORTANCE OF EFFECTIVE PAIN MANAGEMENT, AND THE PAIN ASSESSMENT PROCESS?YES ADVANCE DIRECTIVE ADVANCE DIRECTIVE DISCUSSED WITH PATIENT:YES DECLINED HCP INFORMATION. REVIEWED WITH PATIENT 09/19/18 1618 JS. HOSPITALIZATION/MAJOR DIAGNOSTIC PROCEDURE PANCREATITIS SURGERY RELATED REVIEW OF SYSTEMS REVIEWED BY: PROVIDER: GLENN BULLARD MD . CONSTITUTIONAL: ANY CHANGE IN YOUR MEDICAL CONDITION? NO . CHILLS NO . FEVER NO . INFECTION: DO YOU HAVE NEW INFECTIONS? NO . DO YOU HAVE HISTORY OF MRSA? NO . MUSCULOSKELETAL: ANY NEW PATTERNS OF PAIN OR NUMBNESS? NO . GASTROENTEROLOGY: ANY NEW CHANGE IN BOWEL CONTROL? NO . GENITOURINARY: ANY NEW CHANGE IN BLADDER CONTROL? NO . IS THERE A CHANCE YOU COULD BE ? NO . HEMATOLOGY/LYMPH: DO YOU TAKE ANY BLOOD THINNERS? (FOR EXAMPLE- COUMADIN, PLAVIX, AGGRENOX, PLATEL, PRADAXA, OR XARELTO) NO . WHEN WAS YOUR LAST DOSE? DATE: TIME: . NEUROLOGY: HAVE YOU FALLEN IN THE PAST 6 MONTHS? NO . ANY NEW EXTREMITY NUMBNESS OR WEAKNESS? NO . CARDIOLOGY: DO YOU HAVE A PACEMAKER OR DEFIBRILLATOR? NO . RESPIRATORY: HAVE YOU BEEN SICK IN THE PAST WEEK? NO . FEVER NO . FLU LIKE SYMPTOMS? NO . COUGH NO . INTEGUMENTARY: DO YOU HAVE ANY RASHES OR OPEN SORES? NO . ALLERGIC/IMMUNO: ARE YOU ALLERGIC TO SHELLFISH OR IV DYE? NO . ANY NEW ALLERGIES? NO . PSYCHIATRIC: DO YOU HAVE THOUGHTS OF HURTING YOURSELF OR SOMEONE ELSE? NO . ARE YOU ABUSED, NEGLECTED, OR IN AN UNSAFE ENVIRONMENT? NO . ENDOCRINOLOGY: ARE YOU DIABETIC? NO . OTHER: DO YOU NEED ANY PRESCRIPTIONS? YES . IF YES, PLEASE LIST: ____OXYCODONE, TIZANIDINE . ANY NEW PROBLEMS WITH YOUR MEDICATIONS? NO . WHEN DID YOU LAST EAT? ____ . WHEN DID YOU LAST DRINK? ____ . WHAT DID YOU LAST DRINK? ____ . NAME OF PERSON DRIVING YOU HOME? ____ . DO YOU HAVE ANY OTHER QUESTIONS OR CONCERNS NO . VITAL SIGNS WT 192.8 LBS, HT 69 IN, BMI 28.47 INDEX, BP 144/88 MM HG, HR 61 /MIN, RR 16 /MIN, TEMP 97.5 F, OXYGEN SAT % 100%, SAFE IN ENV? (Y/N) YES, NA INITIALS AW 1446, REVIEWED BY: BELTRAN. EXAMINATION GENERAL EXAMINATION: PATIENT IS ALERT O X 3 AND COOPERATIVE. THE PATIENT HAS DIFFICULTY STANDING UP. PATIENT AMBULATES WITH AN ANTALGIC GAIT. TENDERNESS IN THE LOWER BACK AND PARASPINAL MUSCLE GROUP, ESPECIALLY TOWARDS THE LEFT SIDE. THERE IS INCREASING PAIN WITH LOW BACK EXTENSION AND LATERAL ROTATION TOWARDS THE LEFT SIDE, WITH INCREASING PAIN OVER THE LEFT LOWER FACET JOINTS WITH FACET LOADING MANEUVER. LUMBAR MRI DONE ON 06/09/16 SHOWS POSTLAMINECTOMY CHANGES, LUMBAR FACET ARTHROPATHY. ASSESSMENTS LUMBAR FACET ARTHROPATHY - M47.816 (PRIMARY) FACET ARTHROPATHY, LUMBOSACRAL - M47.817 LUMBAR POST-LAMINECTOMY SYNDROME - M96.1 TREATMENT LUMBAR FACET ARTHROPATHY CLINICAL NOTES: WE DISCUSSED SEVERAL ISSUES WITH MR. VILLAFUERTE'S PAIN MANAGEMENT CASE. PATIENT WILL RECEIVED A REFILL OF TIZANIDINE AND OXYCODONE. PATIENT IS TAKING TIZANIDINE FOR THE MUSCLES CRAMPS AND SPASMS. HE IS USING THE MEDICATION NEEDED. OXYCODONE FOR SOMATIC PAIN. THE PATIENT CANNOT USE NSAID'S DUE TO GASTRITIS. PATIENT DENIES ABUSE OF ANY MEDICATION, DENIES USE OF ILLEGAL SUBSTANCES, AND STATES THAT HE IS ONLY USING THE MEDICATION FOR PAIN MANAGEMENT. URINE TOXICOLOGY REPORT DONE ON 09/18/17 SHOWS CONSISTENT RESULTS. I WILL DO A URINE TOXICOLOGY TODAY. I WILL REQUEST A LEFT L4-L5, L5-S1 THERAPEUTIC FACET BLOCK. THE PATIENT HAS AN ACUTE EXACERBATION OF HIS CHRONIC LOW BACK PAIN CONDITION. AFTER THE BLOCK THE PATIENT WILL TRY TO REDUCE THE AMOUNT OF OXYCODONE HE IS USING. THE PATIENT IS AWARE THAT HE WOULD CONTINUE BRINGING HIS PAIN MEDICATIONS TO THE PAIN CLINIC. INSTRUCTIONS WERE GIVEN, QUESTIONS WERE ANSWERED, PATIENT REPORTS UNDERSTANDING AND AGREES WITH THE PLAN. OTHERS REFILL OXYCODONE HCL TABLET, 5 MG, 1 TABLET NEEDED, ORALLY FOR PAIN, EVERY 6 HOURS NEEDED, 30 DAY(S), 90, REFILLS 0 REFILL TIZANIDINE HCL TABLET, 4 MG, 1 TABLET NEEDED, ORALLY, QHS PRN FOR SPASMS AND PAIN MAY REPEAT IN 5 HRS MDD2, 30 DAY(S), 45, REFILLS 1 PROCEDURE CODES FA211 ESTABILISHED PATIENT [facility] FACILITY CHARGE G8427 CURRENT MEDS W/DOSAGES DOCUMENTED G8730 PAIN ASSESS POS TOOL F/U PLAN DOC DISPOSITION & COMMUNICATION FOLLOW UP 6 WEEKS ELECTRONICALLY SIGNED BY GLENN BULLARD MD, ON 09/24/2018 AT 12:23 PM EST DISCLAIMER : THIS IS A VISIT SUMMARY EXTRACTED FROM THE [employer] CHART. IT IS NOT A COPY OF THE [employer] PROGRESS NOTE. RACHEL
== END ==
LOC: M PAIN 14:45
PROVIDERS: ATTEND Anesthesiology
DX: M47.817 Spondylosis without myelopathy or radiculopathy, lumbosacral region (principal); M96.1 Postlaminectomy syndrome, not elsewhere classified; I10 Essential (primary) hypertension; K21.9 Gastro-esophageal reflux disease without esophagitis; J30.89 Other allergic rhinitis; Z72.0 Tobacco use; Z79.899 Other long term (current) drug therapy

== ENCOUNTER → 2018-10-18 | Outpatient (CLI) | payer OTHER ==
--- NOTE | 2018-11-04 00:03 | ECWPNPC ---
PATIENT NAME: JASON VILLAFUERTE : 1960 GENDER: MALE VISIT DATE: 10/18/2018 DISCHARGE DATE: 10/18/18 0954 VISIT LOCKED DATE TIME: PHYSICIAN: GLENN BULLARD MD RESOURCE: GLENN BULLARD MD REASON FOR APPOINTMENT 1. W/C, PER DR Johnson VISIT 09-19-18 HISTORY OF PRESENT ILLNESS HISTORY OF PRESENT ILLNESS: PAIN THE PATIENT DESCRIBES THE PAIN... 57 YEAR OLD MALE PATIENT WITH A HISTORY OF CHRONIC LOW BACK PAIN. THE PATIENT DESCRIBES THE PAIN ACHING, SORE, TENDER, SHARP, STABBING, SHOOTING, AND CONTINUOUS WITH A PAIN SCORE OF 2-10/10 DEPENDING ON PHYSICAL ACTIVITY. THE PATIENT WAS HURT IN A WORK RELATED INJURY ON 07/15/2008 WHILE WORKING FOR [employer] A [employer]END[employer] WHEN HE WAS WORKING ON A CHAIN LINKED FENCED AND FELL OVER THE TOP OF IT, CAUSING HIM TO TWIST AND INJURE HIS BACK. THE PATIENT SAYS THAT HIS PAIN IS MAINLY LOCATED ON THE LEFT SIDE OF HIS LOW BACK AND RADIATES DOWN BOTH OF HIS LEGS. THE PATIENT IS CURRENTLY USING OXYCODONE TO AID IN PAIN RELIEF AND SAYS THAT THE USE OF THE MEDICATION HELPS HIM REMAIN MOBILE AND FUNCTIONAL, BUT HE STILL HAS SOME PAIN. THE PATIENT EXPRESSED THAT THE PAIN IN THE LAST MONTH HAS INCREASED SIGNIFICANTLY, LOCATED MAINLY AT HIS LEFT LOWER BACK AREA. HE HAS DIFFICULTIES DOING HIS ACTIVITIES, INCLUDING HIS JOB .THE PATIENT SAYS THAT HE IS INTERESTED IN A DCS TRIAL. PATIENT DENIES UNEXPLAINABLE WEIGHT LOSS, FEVER, CHILLS, NEW CHANGES ON HIS URINARY OR BOWEL CONTROL. FALL RISK SCREENING: SCREENING : NO FALLS IN THE PAST YEAR. CURRENT MEDICATIONS TAKING OXYCODONE HCL 5 MG TABLET 1 TABLET NEEDED ORALLY FOR PAIN EVERY 6 HOURS NEEDED TAKING TIZANIDINE HCL 4 MG TABLET 1 TABLET NEEDED ORALLY QHS PRN FOR SPASMS AND PAIN MAY REPEAT IN 5 HRS MDD2 TAKING OMEPRAZOLE 20 MG CAPSULE DELAYED RELEASE 1 CAPSULE ORALLY ONCE DAILY TAKING AMLODIPINE BESYLATE 5 MG TABLET 1 TABLET ORALLY ONCE A DAY DISCONTINUED OXYCODONE HCL 5 MG TABLET 1 TABLET ORALLY FOR PAIN DAILY MDD1 MEDICATION LIST REVIEWED AND RECONCILED WITH THE PATIENT PAST MEDICAL HISTORY CHRONIC BACK AND NECK PAIN GERD HTN ALLERGIES ENVIRONMENTAL: HAY FEVER: ALLERGY SURGICAL HISTORY 4 BACK SURGERY 2010 CERVICLE SURGERY 2011 CHOLECYSECTOMY 1994 FAMILY HISTORY FATHER: , DIAGNOSED WITH CANCER MOTHER: , DIAGNOSED WITH HYPERTENSION 4 BROTHER(S) , 1 SISTER(S) . 1 SON(S) , 1 DAUGHTER(S) - HEALTHY. SOCIAL HISTORY GENERAL: TOBACCO USE ARE YOU A:FORMER SMOKER HOW LONG HAS IT BEEN SINCE YOU LAST SMOKED?1-3 MONTHS ALCOHOL SCREENING DID YOU HAVE A DRINK CONTAINING ALCOHOL IN THE PAST YEAR?YES HOW OFTEN DID YOU HAVE A DRINK CONTAINING ALCOHOL IN THE PAST YEAR?TWO TO FOUR TIMES A MONTH (2 POINTS) HOW OFTEN DID YOU HAVE SIX OR MORE DRINKS ON ONE OCCASION IN THE PAST YEAR?LESS THAN MONTHLY (1 POINT) POINTS3 INTERPRETATIONNEGATIVE RECREATIONAL DRUG USE DRUG USE?NO CAFFEINE CAFFEINE USE?YES HOW OFTEN AND HOW MUCH? 2 CUPS EVERY MORNING LEARNING BARRIERS / SPECIAL NEEDS ORIENTED TO PLAN OF CARE: PATIENT, PAIN MANAGEMENT PATIENT, ORIENTED TO PLAN OF CARE: PATIENT, PAIN MANAGEMENT PATIENT. NEW PATIENT PAIN DIARY TODAY'S VISIT NOTES, FROM 0-10, WHAT LEVEL IS YOUR PAIN TODAY? 0. PAIN CLINIC PFS, CLERGY, PUBLIC HEALTH REFERRALS PFS REFERRAL NEEDED?NO CLERGY REFERRAL NEEDED?NO PUBLIC HEALTH REFERRAL NEEDED?NO WAS THE PROVIDER NOTIFIED OF ANY PERTINENT INFO?NO HAS THE PATIENT BEEN EDUCATED REGARDING HIS/HER PLAN OF CARE?YES HAS THE PATIENT BEEN EDUCATED REGARDING PAIN, THE RISK FOR PAIN, THE IMPORTANCE OF EFFECTIVE PAIN MANAGEMENT, AND THE PAIN ASSESSMENT PROCESS?YES ADVANCE DIRECTIVE ADVANCE DIRECTIVE DISCUSSED WITH PATIENT:YES DECLINED HCP INFORMATION. REVIEWED WITH PATIENT 09/19/18 1695 JS. HOSPITALIZATION/MAJOR DIAGNOSTIC PROCEDURE PANCREATITIS SURGERY RELATED REVIEW OF SYSTEMS REVIEWED BY: PROVIDER: GLENN BULLARD MD . CONSTITUTIONAL: ANY CHANGE IN YOUR MEDICAL CONDITION? NO . CHILLS NO . FEVER NO . INFECTION: DO YOU HAVE NEW INFECTIONS? NO . DO YOU HAVE HISTORY OF MRSA? NO . MUSCULOSKELETAL: ANY NEW PATTERNS OF PAIN OR NUMBNESS? YES, BILAT FOOT PAIN, NUMB, TINGLING, SWELLING. WENT TO [place] FOR THIS AND WAS TOLD HE HAS NEUROPATHY, WAS TOLD TO F/U W PAIN CLINIC . GASTROENTEROLOGY: ANY NEW CHANGE IN BOWEL CONTROL? NO . GENITOURINARY: ANY NEW CHANGE IN BLADDER CONTROL? NO . IS THERE A CHANCE YOU COULD BE ? NO . HEMATOLOGY/LYMPH: DO YOU TAKE ANY BLOOD THINNERS? (FOR EXAMPLE- COUMADIN, PLAVIX, AGGRENOX, PLATEL, PRADAXA, OR XARELTO) NO . WHEN WAS YOUR LAST DOSE? DATE: TIME: . NEUROLOGY: HAVE YOU FALLEN IN THE PAST 12 MONTHS? NO . ANY NEW EXTREMITY NUMBNESS OR WEAKNESS? YES, BILAT FOOT PAIN, TINGLING, NUMBNESS . CARDIOLOGY: DO YOU HAVE A PACEMAKER OR DEFIBRILLATOR? NO . RESPIRATORY: HAVE YOU BEEN SICK IN THE PAST WEEK? YES, URI TX'D W ABX, AMOX GETTING BETTER . FEVER NO . FLU LIKE SYMPTOMS? NO . COUGH YES, PRODUCTIVE YELLOW SPUTUM . INTEGUMENTARY: DO YOU HAVE ANY RASHES OR OPEN SORES? NO . ALLERGIC/IMMUNO: ARE YOU ALLERGIC TO IV DYE? NO . ANY NEW ALLERGIES? NO . PSYCHIATRIC: DO YOU HAVE THOUGHTS OF HURTING YOURSELF OR SOMEONE ELSE? NO . ARE YOU ABUSED, NEGLECTED, OR IN AN UNSAFE ENVIRONMENT? NO . ENDOCRINOLOGY: ARE YOU DIABETIC? NO . OTHER: DO YOU NEED ANY PRESCRIPTIONS? YES, OXYCODONE . IF YES, PLEASE LIST: ____ . ANY NEW PROBLEMS WITH YOUR MEDICATIONS? NO . WHEN DID YOU LAST EAT? ____ . WHEN DID YOU LAST DRINK? ____ . WHAT DID YOU LAST DRINK? ____ . NAME OF PERSON DRIVING YOU HOME? ____ . DO YOU HAVE ANY OTHER QUESTIONS OR CONCERNS NO . VITAL SIGNS WT 190 LBS, HT 69 IN, BMI 28.06 INDEX, BP 134/90 MM HG, HR 60 /MIN, RR 16 /MIN, TEMP 98.2 F, OXYGEN SAT % 97, REVIEWED BY: EM. EXAMINATION GENERAL EXAMINATION: PATIENT IS ALERT O X 3 AND COOPERATIVE. TENDERNESS IN THE LOW BACK AREA. PAIN INCREASES OVER THE LUMBAR FACET JOINTS WITH EXTENSION AND LATERAL ROTATION OF THE BACK. MRI OF THE LUMBAR SPINE DONE ON 06/09/2016 SHOWS FACET ARTHROPATHY CHANGES AT MULTIPLE LEVELS. 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 VILLAFUERTE'S PAIN MANAGEMENT CASE. DUE TO THE LUMBAR SPONDYLOSIS, I WOULD LIKE TO MOVE FORWARD WITH A LEFT L4-L5, L5-S1 THERAPEUTIC LUMBAR FACET BLOCK TO ADDRESS THE ACUTE LOW BACK PAIN ISSUE.. WE DISCUSSED THE BENEFITS, RISKS, AND ALTERNATIVES OF THE INJECTION AND THE PATIENT WOULD LIKE TO PROCEED. THE PATIENT WILL CONTINUE USING OXYCODONE FOR THE SOMATIC PAIN. ISTOP _[id number] WAS REVIEWED. URINE TOXICOLOGY DONE ON 09/19/2018 SHOWS CONCURRENT RESULTS. I WILL ALSO REQUEST A PSYCHOLOGICAL EVALUATION FOR A DCS TRIAL. THE PATIENT WILL FOLLOW UP IN 6 WEEKS. INSTRUCTIONS WERE GIVEN, QUESTIONS WERE ANSWERED, PATIENT REPORTS UNDERSTANDING AND AGREES WITH THE PLAN. I, PHU HORN, DOCUMENTED THE ABOVE INFORMATION ACTING A SCRIBE FOR DR. BULLARD. I HAVE REVIEWED THE ABOVE DOCUMENT, WRITTEN BY PHU VENTURA[place]North AND I VERIFY THAT IT IS ACCURATE. OTHERS REFILL OXYCODONE HCL TABLET, 5 MG, 1 TABLET NEEDED, ORALLY FOR PAIN, EVERY 6 HOURS NEEDED, 30 DAY(S), 90, REFILLS 0 PROCEDURES PN WORKMANS' COMP OPINION IN YOUR OPINION, WAS THE INCIDENT THAT THE PATIENT DESCRIBED THE COMPETENT MEDICAL CAUSE OF THIS INJURY/ILLNESS? YES ARE THE PATIENT'S COMPLAINTS CONSISTENT WITH HIS/HER HISTORY OF THE INJURY/ILLNESS? YES IS THE PATIENT'S HISTORY OF THE INJURY/ILLNESS CONSISTENT WITH YOUR OBJECTIVE FINDING? YES WHAT IS THE PERCENTAGE OF TEMPORARY IMPAIRMENT? MODERATE TO MARKED = 66.7% IS THE PATIENT WORKING? YES DOCTOR ON SITE: GLENN NICHOLS MD PROCEDURE CODES FA211 ESTABILISHED PATIENT [facility] FACILITY CHARGE G8427 CURRENT MEDS W/DOSAGES DOCUMENTED G8730 PAIN ASSESS POS TOOL F/U PLAN DOC DISPOSITION & COMMUNICATION FOLLOW UP 6 WEEKS (REASON: W/C LOW BACK) ELECTRONICALLY SIGNED BY GLENN BULLARD MD, MD ON 11/03/2018 AT 01:41 PM EST DISCLAIMER : THIS IS A VISIT SUMMARY EXTRACTED FROM THE [employer] CHART. IT IS NOT A COPY OF THE [employer] PROGRESS NOTE. MTDD
== END ==
LOC: M PAIN 08:45
PROVIDERS: ATTEND Anesthesiology
DX: M47.816 Spondylosis without myelopathy or radiculopathy, lumbar region (principal); K21.9 Gastro-esophageal reflux disease without esophagitis; I10 Essential (primary) hypertension; Z87.891 Personal history of nicotine dependence; Z79.891 Long term (current) use of opiate analgesic; Z79.899 Other long term (current) drug therapy

== ENCOUNTER → 2019-01-09 | Outpatient (CLI) | payer OTHER ==
[~2019-01-09] MED LIST changes: -/CELE20CA OR; +BUPIVACAINE HCL 0.25% 30 ML VIAL As Ordered ONE; +CELE1CAP4 OR; +ISOVUE-M 300 61% 15ML VIAL (Q9967) As Ordered ONE; +LIDOCAINE 1% SDV INJ 30 ML VIAL As Ordered ONE; -NAPR-50 PO; +NAPR-837 PO; +TRIAMCINOLONE ACETONIDE SUSP 40 MG/ML VIAL (J3301) As Ordered ONE; +diazePAM 5 MG TAB As Ordered ONE; +oxyCODONE 5MG TAB As Ordered ONE
--- NOTE | 2019-01-09 10:41 | REP ---
Partial lumbar spine series: Two views . History: Injection procedure for pain. 60 seconds of fluoroscopy time is reported. Findings: A sequence of two fluoroscopically obtained last image hold procedural spot radiographs of the lumbar spine document needle position and contrast injection associated with injection procedure. Electronically Signed by Tito Bueno MD 01/09/2019 10:33 A
--- NOTE | 2019-01-25 23:41 | ECWPNPC ---
PATIENT NAME: JASON VILLAFUERTE : 1960 GENDER: MALE VISIT DATE: 01/09/2019 DISCHARGE DATE: 01/09/19 1050 VISIT LOCKED DATE TIME: PHYSICIAN: GLENN BULLARD MD RESOURCE: GLENN BULLARD MD REASON FOR APPOINTMENT 1. SYED L4-5, L5 S1 THERAPEUTIC FACET BLOCK HISTORY OF PRESENT ILLNESS HISTORY OF PRESENT ILLNESS: PAIN THE PATIENT DESCRIBES THE PAIN... FALL RISK SCREENING: SCREENING :NO FALLS REPORTED IN THE LAST YEAR CURRENT MEDICATIONS TAKING TIZANIDINE HCL 4 MG TABLET 1 TABLET NEEDED ORALLY QHS PRN FOR SPASMS AND PAIN MAY REPEAT IN 5 HRS MDD2, NOTES: NONE IN 3 DAYS TAKING OMEPRAZOLE 20 MG CAPSULE DELAYED RELEASE 1 CAPSULE ORALLY ONCE DAILY, NOTES: 01/08/191929 TAKING AMLODIPINE BESYLATE 5 MG TABLET 1 TABLET ORALLY ONCE A DAY, NOTES: 01/08/191929 TAKING OXYCODONE HCL 5 MG TABLET 1 TABLET NEEDED ORALLY FOR PAIN EVERY 6 HOURS NEEDED, NOTES: 01/09/1905/22/500 MEDICATION LIST REVIEWED AND RECONCILED WITH THE PATIENT PAST MEDICAL HISTORY CHRONIC BACK AND NECK PAIN GERD HTN ALLERGIES ENVIRONMENTAL: HAY FEVER - ALLERGY SURGICAL HISTORY 4 BACK SURGERY 2010 CERVICLE SURGERY 2011 CHOLECYSECTOMY 1994 FAMILY HISTORY FATHER: , DIAGNOSED WITH CANCER MOTHER: , HYPERTENSION 4 BROTHER(S) , 1 SISTER(S) . 1 SON(S) , 1 DAUGHTER(S) - HEALTHY. SOCIAL HISTORY GENERAL: TOBACCO USE ARE YOU A:FORMER SMOKER HOW LONG HAS IT BEEN SINCE YOU LAST SMOKED?1-3 MONTHS PAIN CLINIC PFS, CLERGY, PUBLIC HEALTH REFERRALS PFS REFERRAL NEEDED?NO CLERGY REFERRAL NEEDED?NO PUBLIC HEALTH REFERRAL NEEDED?NO WAS THE PROVIDER NOTIFIED OF ANY PERTINENT INFO?NO HAS THE PATIENT BEEN EDUCATED REGARDING HIS/HER PLAN OF CARE?YES HAS THE PATIENT BEEN EDUCATED REGARDING PAIN, THE RISK FOR PAIN, THE IMPORTANCE OF EFFECTIVE PAIN MANAGEMENT, AND THE PAIN ASSESSMENT PROCESS?YES LATEX QUESTIONNAIRE LATEX ALLERGY : HAVE YOU EVER DEVELOPED ANY TYPE OF REACTION AFTER HANDLING LATEX PRODUCTS SUCH RUBBER GLOVES, CONDOMS, DIAPHRAGMS, BALLOONS, SOCKS, OR UNDERWEAR?NO LATEX ALLERGY : HAVE YOU EVER DEVELOPED ANY TYPE OF REACTION DURING OR AFTER DENTAL APPOINTMENT, VAGINAL/RECTAL EXAMINATION, SURGICAL PROCEDURE, OR ANY OTHER EXPOSURE?NO LATEX RISK : HAVE YOU EVER HAD ANY DIFFICULTY BREATHING OR HIVES AFTER EATING OR HANDLING ANY FRUITS, OR VEGETABLES; SUCH KIWI, BANANAS, STONE FRUITS, OR CHESTNUTSNO LATEX RISK : DO YOU HAVE A PREVIOUS PERSONAL HISTORY OF MORE THAN NINE SURGERIES, SPINA BIFIDA, OR REPEATED CATHERTIZATIONS? NO LATEX RISK : ARE YOU FREQUENTLY EXPOSED TO LATEX PRODUCTS IN YOUR OCCUPATION?NO DATE ASKED : 01/09/2019 CAFFEINE CAFFEINE USE?YES HOW OFTEN AND HOW MUCH? 2 CUPS EVERY MORNING ADVANCE DIRECTIVE ADVANCE DIRECTIVE DISCUSSED WITH PATIENT:YES DECLINED HCP INFORMATION AND ASSISTANCE AT THIS TIME 01/09/19 LANGUAGE LANGUAGES SPOKEN:BAHRAINI NEW PATIENT PAIN DIARY FROM 0-10, WHAT LEVEL IS YOUR PAIN TODAY?3 ALCOHOL SCREENING DID YOU HAVE A DRINK CONTAINING ALCOHOL IN THE PAST YEAR?YES HOW OFTEN DID YOU HAVE A DRINK CONTAINING ALCOHOL IN THE PAST YEAR?TWO TO FOUR TIMES A MONTH (2 POINTS) HOW OFTEN DID YOU HAVE SIX OR MORE DRINKS ON ONE OCCASION IN THE PAST YEAR?LESS THAN MONTHLY (1 POINT) POINTS3 INTERPRETATIONNEGATIVE RECREATIONAL DRUG USE DRUG USE?NO LEARNING BARRIERS / SPECIAL NEEDS ORIENTED TO PLAN OF CARE: PATIENT, PAIN MANAGEMENT PATIENT, ORIENTED TO PLAN OF CARE: PATIENT, PAIN MANAGEMENT PATIENT. REVIEWED WITH PATIENT 09/19/18 1518 JSREVIEWED WITH PT 01/09/19 0855 BV. HOSPITALIZATION/MAJOR DIAGNOSTIC PROCEDURE PANCREATITIS SURGERY RELATED REVIEW OF SYSTEMS REVIEWED BY: PROVIDER: . CONSTITUTIONAL: ANY CHANGE IN YOUR MEDICAL CONDITION? NO . CHILLS NO . FEVER NO . INFECTION: DO YOU HAVE NEW INFECTIONS? NO . DO YOU HAVE HISTORY OF MRSA? NO . MUSCULOSKELETAL: ANY NEW PATTERNS OF PAIN OR NUMBNESS? NO . GASTROENTEROLOGY: ANY NEW CHANGE IN BOWEL CONTROL? NO . GENITOURINARY: ANY NEW CHANGE IN BLADDER CONTROL? NO . IS THERE A CHANCE YOU COULD BE ? NO . HEMATOLOGY/LYMPH: DO YOU TAKE ANY BLOOD THINNERS? (FOR EXAMPLE- COUMADIN, PLAVIX, AGGRENOX, PLATEL, PRADAXA, OR XARELTO) NO . WHEN WAS YOUR LAST DOSE? DATE: TIME: . NEUROLOGY: HAVE YOU FALLEN IN THE PAST 12 MONTHS? NO . ANY NEW EXTREMITY NUMBNESS OR WEAKNESS? NO . CARDIOLOGY: DO YOU HAVE A PACEMAKER OR DEFIBRILLATOR? NO . RESPIRATORY: HAVE YOU BEEN SICK IN THE PAST WEEK? NO . FEVER NO . FLU LIKE SYMPTOMS? NO . COUGH NO . INTEGUMENTARY: DO YOU HAVE ANY RASHES OR OPEN SORES? NO . ALLERGIC/IMMUNO: ARE YOU ALLERGIC TO IV DYE? NO . ANY NEW ALLERGIES? NO . PSYCHIATRIC: DO YOU HAVE THOUGHTS OF HURTING YOURSELF OR SOMEONE ELSE? NO . ARE YOU ABUSED, NEGLECTED, OR IN AN UNSAFE ENVIRONMENT? NO . ENDOCRINOLOGY: ARE YOU DIABETIC? NO . OTHER: DO YOU NEED ANY PRESCRIPTIONS? NO . IF YES, PLEASE LIST: ____ . ANY NEW PROBLEMS WITH YOUR MEDICATIONS? NO . WHEN DID YOU LAST EAT? 01/08/191999 . WHEN DID YOU LAST DRINK? 01/09/19 0730 . WHAT DID YOU LAST DRINK? WATER . NAME OF PERSON DRIVING YOU HOME? SHARRI . DO YOU HAVE ANY OTHER QUESTIONS OR CONCERNS NO . VITAL SIGNS WT 195.4 LBS, HT 69 IN, BMI 28.85 INDEX, BP 139/97 MM HG, HR 51 /MIN, RR 16 /MIN, TEMP 96.7 F, OXYGEN SAT % 98%, NA INITIALS SC 08:41, REVIEWED BY: BV. ASSESSMENTS SPONDYLOSIS WITHOUT MYELOPATHY OR RADICULOPATHY, LUMBAR REGION - M47.816 (PRIMARY) SPONDYLOSIS OF LUMBOSACRAL REGION WITHOUT MYELOPATHY OR RADICULOPATHY - M47.817 TREATMENT SPONDYLOSIS WITHOUT MYELOPATHY OR RADICULOPATHY, LUMBAR REGION [facility] FACET BLOCK (PAIN)[id number] PROCEDURES PN WORKMANS' COMP OPINION IN YOUR OPINION, WAS THE INCIDENT THAT THE PATIENT DESCRIBED THE COMPETENT MEDICAL CAUSE OF THIS INJURY/ILLNESS? YES ARE THE PATIENT'S COMPLAINTS CONSISTENT WITH HIS/HER HISTORY OF THE INJURY/ILLNESS? YES IS THE PATIENT'S HISTORY OF THE INJURY/ILLNESS CONSISTENT WITH YOUR OBJECTIVE FINDING? YES WHAT IS THE PERCENTAGE OF TEMPORARY IMPAIRMENT? MODERATE TO MARKED = 66.7% IS THE PATIENT WORKING? YES DOCTOR ON SITE: GLENN NICHOLS MD PN LUMBAR FACET BLOCK THERAPEUTIC PRE PROCEDURE DIAGNOSIS LUMBAR SPONDYLOSIS, LUMBOSACRAL SPONDYLOSIS POST PROCEDURE DIAGNOSIS LUMBAR SPONDYLOSIS, LUMBOSACRAL SPONDYLOSIS PROCEDURE BILATERAL L4-L5 AND BILATERAL L5-S1 LUMBAR FACET THERAPEUTIC BLOCK SURGEON DR. 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 I EVALUATE THE PATIENT AND REVIEWED THE CHART. I WENT OVER THE RISKS, ALTERNATIVES, AND BENEFITS ASSOCIATED WITH THIS PROCEDURE. THE PATIENT WOULD LIKE TO PROCEED AND GIVE CONSENT TO PERFORMED THE PROCEDURE. THE PATIENT DENIES UNEXPLAINABLE WEIGHT LOSS, FEVER, CHILLS, OR NEW CHANGES IN URINARY OR BOWEL CONTROL DESCRIPTION OF PROCEDURE THE PATIENT WAS BROUGHT TO THE PROCEDURE ROOM AND PLACED IN THE PRONE POSITION. THE LUMBOSACRAL AREA WAS CLEANED WITH CHLORAPREP SOLUTION AND DRAPED ASEPTICALLY. THE PROCEDURE WAS DONE UNDER STERILE CONDITIONS. I CHECKED LATERALITY AND THE LEVEL WHERE THE PROCEDURE WAS GOING TO BE PERFORMED WITH THE PATIENT AND THE SUPPORTING STAFF AT THE MOMENT OF THE TIME OUT IN THE PROCEDURE ROOM. UNDER FLUOROSCOPIC GUIDANCE, THE TARGET POINT WAS SELECTED AT THE RIGHT AND LEFT L4-L5 AND RIGHT AND LEFT L5-S1 FACET JOINT. TARGET POINT WAS SELECTED AFTER LATERAL ROTATION AND TILT OF THE MAGNIFIER OF THE C-ARM. LIDOCAINE 0.5% WAS USED TO NUMB THE SKIN AND THE SUBCUTANEOUS TISSUE BELOW IT. SPINAL NEEDLES, 22-GAUGE, WERE ADVANCED UNDER FLUOROSCOPIC GUIDANCE AND FOLLOWING PATIENT FEEDBACK UNTIL THE TARGETS WERE TOUCHED. THE POSITION OF THE NEEDLES WAS VERIFIED WITH AP AND LATERAL VIEWS. AFTER PROPER POSITION OF THE NEEDLES WAS ACHIEVED, ISOVUE-M DYE 30% 0.1 ML WAS INJECTED SHOWING ADEQUATE SPREAD OF THE DYE. THEN A SOLUTION OF 1.9 ML OF BUPIVACAINE 0.125% OF KENALOG 10 MG WAS INJECTED AT EACH SITE. THERE WAS NO EVIDENCE OF BLOOD, PARESTHESIA OR CEREBROSPINAL FLUID DURING THE PROCEDURE. THE PATIENT WAS SENT TO THE RECOVERY ROOM. THE PATIENT WAS MOVING THE EXTREMITIES AND DOING WELL. THERE WAS NO COMPLICATION DURING THE PROCEDURE. FLUOROSCOPY TIME WAS 60 SECONDS POST PROCEDURE NOTE THE PATIENT WILL BE SEEN IN A FOLLOW UP IN THE NEXT FEW WEEKS. INSTRUCTIONS WERE GIVEN, QUESTIONS WERE ANSWERED, AND THE PATIENT EXPRESSED UNDERSTANDING AND AGREES WITH THE PLAN. I, PHU HORN, DOCUMENTED THE ABOVE INFORMATION ACTING A SCRIBE FOR DR. BULLARD. I HAVE REVIEWED THE ABOVE DOCUMENT, WRITTEN BY PHU [facility] AND I VERIFY THAT IT IS ACCURATE. PROCEDURE CODES 6045F RADXPS IN END [id number] PXD [id number] INJ PARAVERT F JNT L/S 1 LEV, MODIFIERS: 50 [id number] INJ PARAVERT F JNT L/S 2 LEV, MODIFIERS: 50 DISPOSITION & COMMUNICATION FOLLOW UP 3 WEEKS ELECTRONICALLY SIGNED BY GLENN BULLARD MD, MD ON 01/25/2019 AT 04:48 PM EDT DISCLAIMER : THIS IS A VISIT SUMMARY EXTRACTED FROM THE [employer] CHART. IT IS NOT A COPY OF THE [employer] PROGRESS NOTE. MTDD
== END ==
LOC: M PAIN 08:30
PROVIDERS: ATTEND Anesthesiology
DX: G89.29 Other chronic pain (principal); M47.816 Spondylosis without myelopathy or radiculopathy, lumbar region; M47.817 Spondylosis without myelopathy or radiculopathy, lumbosacral region; K21.9 Gastro-esophageal reflux disease without esophagitis; I10 Essential (primary) hypertension; Z79.899 Other long term (current) drug therapy; Z87.891 Personal history of nicotine dependence
CPT/HCPCS: 64493; 64494; J3301; Q9967

== ENCOUNTER → 2019-03-19 | Outpatient (CLI) | payer OTHER ==
[~2019-03-19] MED LIST changes: -BUPIVACAINE HCL 0.25% 30 ML VIAL As Ordered ONE; -ISOVUE-M 300 61% 15ML VIAL (Q9967) As Ordered ONE; -LIDOCAINE 1% SDV INJ 30 ML VIAL As Ordered ONE; -TRIAMCINOLONE ACETONIDE SUSP 40 MG/ML VIAL (J3301) As Ordered ONE; -diazePAM 5 MG TAB As Ordered ONE; -oxyCODONE 5MG TAB As Ordered ONE
--- NOTE | 2019-03-19 23:14 | ECWPNPC ---
PATIENT NAME: JASON VILLAFUERTE : 1960 GENDER: MALE VISIT DATE: 03/19/2019 DISCHARGE DATE: 03/19/19 1010 VISIT LOCKED DATE TIME: PHYSICIAN: ZOYA RODRIGUEZ RESOURCE: ZOYA RODRIGUEZ REASON FOR APPOINTMENT 1. W/C POST PROC HISTORY OF PRESENT ILLNESS HISTORY OF PRESENT ILLNESS: PAIN THE PATIENT DESCRIBES THE PAIN... 58 YEAR OLD MALE IN FOR POST THERAPEUTIC FACET BLOCK FOLLOW UP. HE ADMITS THE PROCEDURE WAS HELPFUL IN RESOLVING HIS SYMPTOMS AND CURRENTLY RATES HIS PAIN AT A 2/10. HE FEELS HIS MEDICATIONS ARE WORKING WELL AND DENIES MED SIDE EFFECTS. FALL RISK SCREENING: SCREENING :NO FALLS REPORTED IN THE LAST YEAR CURRENT MEDICATIONS TAKING TIZANIDINE HCL 4 MG TABLET 1 TABLET NEEDED ORALLY QHS PRN FOR SPASMS AND PAIN MAY REPEAT IN 5 HRS MDD2 TAKING OMEPRAZOLE 20 MG CAPSULE DELAYED RELEASE 1 CAPSULE ORALLY ONCE DAILY TAKING AMLODIPINE BESYLATE 5 MG TABLET 1 TABLET ORALLY ONCE A DAY TAKING OXYCODONE HCL 5 MG TABLET 1 TABLET NEEDED ORALLY FOR PAIN EVERY 6 HOURS NEEDED MEDICATION LIST REVIEWED AND RECONCILED WITH THE PATIENT PAST MEDICAL HISTORY CHRONIC BACK AND NECK PAIN GERD HTN ALLERGIES ENVIRONMENTAL: HAY FEVER - ALLERGY SURGICAL HISTORY 4 BACK SURGERY 2010 CERVICLE SURGERY 2011 CHOLECYSECTOMY 1994 FAMILY HISTORY FATHER: , DIAGNOSED WITH CANCER MOTHER: , HYPERTENSION 4 BROTHER(S) , 1 SISTER(S) . 1 SON(S) , 1 DAUGHTER(S) - HEALTHY. SOCIAL HISTORY GENERAL: TOBACCO USE ARE YOU A:FORMER SMOKER HOW LONG HAS IT BEEN SINCE YOU LAST SMOKED?1-3 MONTHS PAIN CLINIC PFS, CLERGY, PUBLIC HEALTH REFERRALS PFS REFERRAL NEEDED?NO CLERGY REFERRAL NEEDED?NO PUBLIC HEALTH REFERRAL NEEDED?NO WAS THE PROVIDER NOTIFIED OF ANY PERTINENT INFO?NO HAS THE PATIENT BEEN EDUCATED REGARDING HIS/HER PLAN OF CARE?YES HAS THE PATIENT BEEN EDUCATED REGARDING PAIN, THE RISK FOR PAIN, THE IMPORTANCE OF EFFECTIVE PAIN MANAGEMENT, AND THE PAIN ASSESSMENT PROCESS?YES LATEX QUESTIONNAIRE LATEX ALLERGY : HAVE YOU EVER DEVELOPED ANY TYPE OF REACTION AFTER HANDLING LATEX PRODUCTS SUCH RUBBER GLOVES, CONDOMS, DIAPHRAGMS, BALLOONS, SOCKS, OR UNDERWEAR?NO LATEX ALLERGY : HAVE YOU EVER DEVELOPED ANY TYPE OF REACTION DURING OR AFTER DENTAL APPOINTMENT, VAGINAL/RECTAL EXAMINATION, SURGICAL PROCEDURE, OR ANY OTHER EXPOSURE?NO LATEX RISK : HAVE YOU EVER HAD ANY DIFFICULTY BREATHING OR HIVES AFTER EATING OR HANDLING ANY FRUITS, OR VEGETABLES; SUCH KIWI, BANANAS, STONE FRUITS, OR CHESTNUTSNO LATEX RISK : DO YOU HAVE A PREVIOUS PERSONAL HISTORY OF MORE THAN NINE SURGERIES, SPINA BIFIDA, OR REPEATED CATHERTIZATIONS? NO LATEX RISK : ARE YOU FREQUENTLY EXPOSED TO LATEX PRODUCTS IN YOUR OCCUPATION?NO DATE ASKED : 01/09/2019 CAFFEINE CAFFEINE USE?YES HOW OFTEN AND HOW MUCH? 2 CUPS EVERY MORNING ADVANCE DIRECTIVE ADVANCE DIRECTIVE DISCUSSED WITH PATIENT:YES DECLINED HCP INFORMATION AND ASSISTANCE AT THIS TIME LANGUAGE LANGUAGES SPOKEN:IRANIAN NEW PATIENT PAIN DIARY FROM 0-10, WHAT LEVEL IS YOUR PAIN TODAY?3 ALCOHOL SCREENING DID YOU HAVE A DRINK CONTAINING ALCOHOL IN THE PAST YEAR?YES HOW OFTEN DID YOU HAVE A DRINK CONTAINING ALCOHOL IN THE PAST YEAR?TWO TO FOUR TIMES A MONTH (2 POINTS) HOW OFTEN DID YOU HAVE SIX OR MORE DRINKS ON ONE OCCASION IN THE PAST YEAR?LESS THAN MONTHLY (1 POINT) POINTS3 INTERPRETATIONNEGATIVE RECREATIONAL DRUG USE DRUG USE?NO LEARNING BARRIERS / SPECIAL NEEDS ORIENTED TO PLAN OF CARE: PATIENT, PAIN MANAGEMENT PATIENT, ORIENTED TO PLAN OF CARE: PATIENT, PAIN MANAGEMENT PATIENT. REVIEWED WITH PATIENT 09/19/18 2091 JSREVIEWED WITH PT 01/09/19 1843 BV. HOSPITALIZATION/MAJOR DIAGNOSTIC PROCEDURE PANCREATITIS SURGERY RELATED REVIEW OF SYSTEMS REVIEWED BY: PROVIDER: ELLIS CABRERA . CONSTITUTIONAL: ANY CHANGE IN YOUR MEDICAL CONDITION? NO . CHILLS NO . FEVER NO . INFECTION: DO YOU HAVE NEW INFECTIONS? NO . DO YOU HAVE HISTORY OF MRSA? NO . MUSCULOSKELETAL: ANY NEW PATTERNS OF PAIN OR NUMBNESS? NO . GASTROENTEROLOGY: ANY NEW CHANGE IN BOWEL CONTROL? NO . GENITOURINARY: ANY NEW CHANGE IN BLADDER CONTROL? NO . IS THERE A CHANCE YOU COULD BE ? NO . HEMATOLOGY/LYMPH: DO YOU TAKE ANY BLOOD THINNERS? (FOR EXAMPLE- COUMADIN, PLAVIX, AGGRENOX, PLATEL, PRADAXA, OR XARELTO) NO . WHEN WAS YOUR LAST DOSE? DATE: TIME: . NEUROLOGY: HAVE YOU FALLEN IN THE PAST 12 MONTHS? NO . ANY NEW EXTREMITY NUMBNESS OR WEAKNESS? NO . CARDIOLOGY: DO YOU HAVE A PACEMAKER OR DEFIBRILLATOR? NO . RESPIRATORY: HAVE YOU BEEN SICK IN THE PAST WEEK? NO . FEVER NO . FLU LIKE SYMPTOMS? NO . COUGH NO . INTEGUMENTARY: DO YOU HAVE ANY RASHES OR OPEN SORES? NO . ALLERGIC/IMMUNO: ARE YOU ALLERGIC TO IV DYE? NO . ANY NEW ALLERGIES? NO . PSYCHIATRIC: DO YOU HAVE THOUGHTS OF HURTING YOURSELF OR SOMEONE ELSE? NO . ARE YOU ABUSED, NEGLECTED, OR IN AN UNSAFE ENVIRONMENT? NO . ENDOCRINOLOGY: ARE YOU DIABETIC? NO . OTHER: DO YOU NEED ANY PRESCRIPTIONS? NO . IF YES, PLEASE LIST: ____ . ANY NEW PROBLEMS WITH YOUR MEDICATIONS? NO . WHEN DID YOU LAST EAT? ____ . WHEN DID YOU LAST DRINK? ____ . WHAT DID YOU LAST DRINK? ____ . NAME OF PERSON DRIVING YOU HOME? ____ . DO YOU HAVE ANY OTHER QUESTIONS OR CONCERNS NO . VITAL SIGNS WT 191.4 LBS, HT 69 IN, BMI 28.26 INDEX, BP 147/80 MM HG, HR 52 /MIN, RR 16 /MIN, TEMP 96.3 F, OXYGEN SAT % 97%, NA INITIALS SC 10:08, REVIEWED BY: JESUS MANUEL. EXAMINATION GENERAL EXAMINATION: GENERALNO ACUTE DISTRESS, WELL NOURISHED AND HYDRATED. PSYCHAPPROPRIATE MOOD AND AFFECT . LUNGS:CLEAR TO AUSCULTATION BILATERALLY, NO WHEEZES, RHONCHI, RALES. HEART:NO MURMURS, REGULAR RATE AND RHYTHM. 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 GIVEN PRESENTING SYMPTOMS AND RESULTS OF PHYSICAL EXAMINATION RECOMMENDED FOLLOW UP IN 2 MONTHS. PATIENT HAS EXPRESSED UNDERSTANDING OF AND WAS IN AGREEMENT WITH TX PLAN. GIVEN TIME TO ASK QUESTIONS AND EXPRESS CONCERNS. , [employer] REGISTRY REVIEWED AND DEMONSTRATES COMPLLIANCE. (REF #[id number] ) BRINGS IN MEDICATIONS WHICH IS APPROPRIATE FOR WHAT WAS DISPENSED. RECENT URINE TOXICOLOGY REVIEWED. NO UNAUTHORIZED MEDICATIONS. NO ILLICIT SUBSTANCES AND PRESCRIBED MEDICATIONS WERE PRESENT. , RISKS AND BENEFITS OF NARCOTIC/OPIOD MEDICATIONS WERE REVIEWED WITH PATIENT - THIS INCLUDES BUT IS NOT LIMITED TO RISK OF DEPENDANCE/DEVELOPMENT OF ADDICTION, MOOD DISTURBANCE AND DEPRESSION, OSTEOPOROSIS, HORMONAL AND LABIDAL CHANGES, RESPIRATORY DEPRESSION AND . PATIENT IS ADVISED NOT TO DRIVE OR DRINK ALCOHOL WHILE ON THESE MEDICATIONS. PROCEDURES PN WORKMANS' COMP OPINION IN YOUR OPINION, WAS THE INCIDENT THAT THE PATIENT DESCRIBED THE COMPETENT MEDICAL CAUSE OF THIS INJURY/ILLNESS? YES ARE THE PATIENT'S COMPLAINTS CONSISTENT WITH HIS/HER HISTORY OF THE INJURY/ILLNESS? YES IS THE PATIENT'S HISTORY OF THE INJURY/ILLNESS CONSISTENT WITH YOUR OBJECTIVE FINDING? YES WHAT IS THE PERCENTAGE OF TEMPORARY IMPAIRMENT? MODERATE TO MARKED = 66.7% IS THE PATIENT WORKING? YES DOCTOR ON SITE: GLENN NICHOLS MD PROCEDURE CODES FA211 ESTABILISHED [facility]IENT [facility] DISPOS[facility] & COMMUNICATION FOLLOW UP 2 MONTHS (REASON: W/C CHRONIC PAIN ) ELECTRONICALLY SIGNED BY OMID CROW ON 03/19/2019 AT 10:35 AM EDT DISCLAIMER : THIS IS A VISIT SUMMARY EXTRACTED FROM THE [employer] CHART. IT IS NOT A COPY OF THE [employer] PROGRESS NOTE. RACHEL
== END ==
LOC: M PAIN 10:00
PROVIDERS: ATTEND Family Medicine
DX: M47.816 Spondylosis without myelopathy or radiculopathy, lumbar region (principal); K21.9 Gastro-esophageal reflux disease without esophagitis; I10 Essential (primary) hypertension; J30.1 Allergic rhinitis due to pollen; M54.2 Cervicalgia; Z90.49 Acquired absence of other specified parts of digestive tract; Z87.891 Personal history of nicotine dependence; Z79.891 Long term (current) use of opiate analgesic; Z79.899 Other long term (current) drug therapy

== ENCOUNTER → 2019-05-23 | Outpatient (CLI) | payer OTHER ==
--- NOTE | 2019-05-27 01:54 | ECWPNPC ---
PATIENT NAME: JASON VILLAFUERTE : 1960 GENDER: MALE VISIT DATE: 05/23/2019 DISCHARGE DATE: 05/23/19 0000 VISIT LOCKED DATE TIME: PHYSICIAN: ZOYA RODRIGUEZ RESOURCE: ZOYA RODRIGUEZ REASON FOR APPOINTMENT 1. W/C BACK/MEDS HISTORY OF PRESENT ILLNESS HISTORY OF PRESENT ILLNESS: PAIN THE PATIENT DESCRIBES THE PAIN... THE PATIENT DESCRIBES THE PAIN... 57 YEAR OLD MALE PATIENT WITH A HISTORY OF CHRONIC LOW BACK PAIN. THE PATIENT DESCRIBES THE PAIN ACHING, SORE, TENDER, SHARP, STABBING, SHOOTING, AND CONTINUOUS WITH A PAIN SCORE OF 2/10 DEPENDING ON PHYSICAL ACTIVITY. 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 THE PATIENT SAYS THAT HIS PAIN IS MAINLY LOCATED ON THE LEFT SIDE OF HIS LOW BACK AND RADIATES DOWN BOTH OF HIS LEGS. THE PATIENT IS CURRENTLY USING OXYCODONE TO AID IN PAIN RELIEF AND SAYS THAT THE USE OF THE MEDICATION HELPS HIM REMAIN MOBILE AND FUNCTIONAL, BUT HE STILL HAS SOME PAIN. FALL RISK SCREENING: SCREENING :NO FALLS REPORTED IN THE LAST YEAR CURRENT MEDICATIONS TAKING TIZANIDINE HCL 4 MG TABLET 1 TABLET NEEDED ORALLY QHS PRN FOR SPASMS AND PAIN MAY REPEAT IN 5 HRS MDD2 TAKING OMEPRAZOLE 20 MG CAPSULE DELAYED RELEASE 1 CAPSULE ORALLY ONCE DAILY TAKING AMLODIPINE BESYLATE 5 MG TABLET 1 TABLET ORALLY ONCE A DAY TAKING OXYCODONE HCL 5 MG TABLET 1 TABLET NEEDED ORALLY FOR PAIN EVERY 6 HOURS NEEDED MEDICATION LIST REVIEWED AND RECONCILED WITH THE PATIENT PAST MEDICAL HISTORY CHRONIC BACK AND NECK PAIN GERD HTN ALLERGIES ENVIRONMENTAL: HAY FEVER - ALLERGY SURGICAL HISTORY 4 BACK SURGERY 2010 CERVICLE SURGERY 2011 CHOLECYSECTOMY 1994 FAMILY HISTORY FATHER: , DIAGNOSED WITH OTHER MALIGNANT NEOPLASM OF UNSPECIFIED SITE MOTHER: , HYPERTENSION 4 BROTHER(S) , 1 SISTER(S) . 1 SON(S) , 1 DAUGHTER(S) - HEALTHY. SOCIAL HISTORY GENERAL: TOBACCO USE ARE YOU A:FORMER SMOKER HOW LONG HAS IT BEEN SINCE YOU LAST SMOKED?1-3 MONTHS PAIN CLINIC PFS, CLERGY, PUBLIC HEALTH REFERRALS PFS REFERRAL NEEDED?NO CLERGY REFERRAL NEEDED?NO PUBLIC HEALTH REFERRAL NEEDED?NO WAS THE PROVIDER NOTIFIED OF ANY PERTINENT INFO?YES HAS THE PATIENT BEEN EDUCATED REGARDING HIS/HER PLAN OF CARE?YES HAS THE PATIENT BEEN EDUCATED REGARDING PAIN, THE RISK FOR PAIN, THE IMPORTANCE OF EFFECTIVE PAIN MANAGEMENT, AND THE PAIN ASSESSMENT PROCESS?YES LATEX QUESTIONNAIRE LATEX ALLERGY : HAVE YOU EVER DEVELOPED ANY TYPE OF REACTION AFTER HANDLING LATEX PRODUCTS SUCH RUBBER GLOVES, CONDOMS, DIAPHRAGMS, BALLOONS, SOCKS, OR UNDERWEAR?NO LATEX ALLERGY : HAVE YOU EVER DEVELOPED ANY TYPE OF REACTION DURING OR AFTER DENTAL APPOINTMENT, VAGINAL/RECTAL EXAMINATION, SURGICAL PROCEDURE, OR ANY OTHER EXPOSURE?NO LATEX RISK : HAVE YOU EVER HAD ANY DIFFICULTY BREATHING OR HIVES AFTER EATING OR HANDLING ANY FRUITS, OR VEGETABLES; SUCH KIWI, BANANAS, STONE FRUITS, OR CHESTNUTSNO LATEX RISK : DO YOU HAVE A PREVIOUS PERSONAL HISTORY OF MORE THAN NINE SURGERIES, SPINA BIFIDA, OR REPEATED CATHERIZATIONS? NO LATEX RISK : ARE YOU FREQUENTLY EXPOSED TO LATEX PRODUCTS IN YOUR OCCUPATION?NO DATE ASKED : 05/23/2019 CAFFEINE CAFFEINE USE?YES HOW OFTEN AND HOW MUCH? 2 CUPS EVERY MORNING ADVANCE DIRECTIVE ADVANCE DIRECTIVE DISCUSSED WITH PATIENT:YES DECLINED HCP INFORMATION AND ASSISTANCE AT THIS TIME LANGUAGE LANGUAGES SPOKEN:CHILEAN NEW PATIENT PAIN DIARY FROM 0-10, WHAT LEVEL IS YOUR PAIN TODAY?3 ALCOHOL SCREENING DID YOU HAVE A DRINK CONTAINING ALCOHOL IN THE PAST YEAR?YES HOW OFTEN DID YOU HAVE SIX OR MORE DRINKS ON ONE OCCASION IN THE PAST YEAR?LESS THAN MONTHLY (1 POINT) HOW OFTEN DID YOU HAVE A DRINK CONTAINING ALCOHOL IN THE PAST YEAR?TWO TO FOUR TIMES A MONTH (2 POINTS) POINTS3 INTERPRETATIONNEGATIVE RECREATIONAL DRUG USE DRUG USE?NO LEARNING BARRIERS / SPECIAL NEEDS ORIENTED TO PLAN OF CARE: PATIENT, PAIN MANAGEMENT PATIENT, ORIENTED TO PLAN OF CARE: PATIENT, PAIN MANAGEMENT PATIENT. REVIEWED WITH PATIENT 09/19/18 1278 JSREVIEWED WITH PT 01/09/19 8232 BV. HOSPITALIZATION/MAJOR DIAGNOSTIC PROCEDURE PANCREATITIS SURGERY RELATED REVIEW OF SYSTEMS REVIEWED BY: PROVIDER: ELLIS CABRERA . CONSTITUTIONAL: ANY CHANGE IN YOUR MEDICAL CONDITION? NO . CHILLS NO . FEVER NO . INFECTION: DO YOU HAVE NEW INFECTIONS? NO . DO YOU HAVE HISTORY OF MRSA? NO . MUSCULOSKELETAL: ANY NEW PATTERNS OF PAIN OR NUMBNESS? NO . GASTROENTEROLOGY: ANY NEW CHANGE IN BOWEL CONTROL? NO . GENITOURINARY: ANY NEW CHANGE IN BLADDER CONTROL? NO . IS THERE A CHANCE YOU COULD BE ? NO . HEMATOLOGY/LYMPH: DO YOU TAKE ANY BLOOD THINNERS? (FOR EXAMPLE- COUMADIN, PLAVIX, AGGRENOX, PLATEL, PRADAXA, OR XARELTO) NO . WHEN WAS YOUR LAST DOSE? DATE: TIME: . NEUROLOGY: HAVE YOU FALLEN IN THE PAST 12 MONTHS? NO . ANY NEW EXTREMITY NUMBNESS OR WEAKNESS? NO . CARDIOLOGY: DO YOU HAVE A PACEMAKER OR DEFIBRILLATOR? NO . RESPIRATORY: HAVE YOU BEEN SICK IN THE PAST WEEK? NO . FEVER NO . FLU LIKE SYMPTOMS? NO . COUGH NO . INTEGUMENTARY: DO YOU HAVE ANY RASHES OR OPEN SORES? NO . ALLERGIC/IMMUNO: ARE YOU ALLERGIC TO IV DYE? NO . ANY NEW ALLERGIES? NO . PSYCHIATRIC: DO YOU HAVE THOUGHTS OF HURTING YOURSELF OR SOMEONE ELSE? NO . ARE YOU ABUSED, NEGLECTED, OR IN AN UNSAFE ENVIRONMENT? NO . ENDOCRINOLOGY: ARE YOU DIABETIC? NO . OTHER: DO YOU NEED ANY PRESCRIPTIONS? NO . IF YES, PLEASE LIST: ____ . ANY NEW PROBLEMS WITH YOUR MEDICATIONS? NO . WHEN DID YOU LAST EAT? ____ . WHEN DID YOU LAST DRINK? ____ . WHAT DID YOU LAST DRINK? ____ . NAME OF PERSON DRIVING YOU HOME? ____ . DO YOU HAVE ANY OTHER QUESTIONS OR CONCERNS PT STATES THAT HE HAS BEEN HAVING INTERMITTENT LEFT SIDE CHEST DISCOMFORT, PAIN WRAPS AROUND LEFT CHEST, RADIATES UP INTO NECK AND DOWN LEFT ARM, ENCOURAGED PT TO REPORT TO URGENT CARE TO BE EVALUATED, EDUCATED PT REGARDING SIGNS OF HEART ISSUES/BLOCKAGE. SIGNIFICANT OTHER AT PT SIDE. ACKNOWLEDGED UNDERSTANDING. DS . VITAL SIGNS WT 192.6 LBS, HT 69 IN, BMI 28.44 INDEX, BP 133/91 MM HG, HR 69 /MIN, RR 16 /MIN, TEMP 97.9 F, OXYGEN SAT % 96%, SAFE IN ENV? (Y/N) Y, NA INITIALS AW 1439, REVIEWED BY: DS. EXAMINATION GENERAL EXAMINATION: GENERALNO ACUTE DISTRESS, WELL NOURISHED AND HYDRATED. PSYCHAPPROPRIATE MOOD AND AFFECT . LUNGS:CLEAR TO AUSCULTATION BILATERALLY, NO WHEEZES, RHONCHI, RALES. HEART:NO MURMURS, REGULAR RATE AND RHYTHM. ASSESSMENTS SPONDYLOSIS WITHOUT MYELOPATHY OR RADICULOPATHY, LUMBOSACRAL REGION - M47.817 (PRIMARY) TREATMENT SPONDYLOSIS WITHOUT MYELOPATHY OR RADICULOPATHY, LUMBOSACRAL REGION CLINICAL NOTES: 58-YEAR-OLD MALE IN FOR WORKMEN'S COMP. CHRONIC PAIN FOLLOW-UP. GIVEN PRESENTING SYMPTOMS AND RESULTS OF PHYSICAL EXAMINATION RECOMMENDED CONTINUATION OF CURRENT MEDICATION REGIMEN WITH FOLLOW-UP IN 3 MONTHS. PATIENT HAS EXPRESSED UNDERSTANDING OF AND WAS IN AGREEMENT WITH TREATMENT PLAN. GIVEN TIME TO ASK QUESTIONS AND EXPRESS CONCERNS.ISTOP REGISTRY REVIEWED AND DEMONSTRATES COMPLLIANCE. (REF # [id number] ) BRINGS IN MEDICATIONS WHICH IS APPROPRIATE FOR WHAT WAS DISPENSED. RECENT URINE TOXICOLOGY REVIEWED. NO UNAUTHORIZED MEDICATIONS. NO ILLICIT SUBSTANCES AND PRESCRIBED MEDICATIONS WERE PRESENT. , PATIENT DOES ADMIT TO 2 EPISODES OF CHEST PAIN WITH RADIATION DOWN THE LEFT ARM LAST WEEK. DISCUSSED THIS WITH PATIENT AND RECOMMENDED HE GO TO URGENT CARE FOR FURTHER EVALUATION PAIN. PROCEDURES PN WORKMANS' COMP OPINION IN YOUR OPINION, WAS THE INCIDENT THAT THE PATIENT DESCRIBED THE COMPETENT MEDICAL CAUSE OF THIS INJURY/ILLNESS? YES ARE THE PATIENT'S COMPLAINTS CONSISTENT WITH HIS/HER HISTORY OF THE INJURY/ILLNESS? YES IS THE PATIENT'S HISTORY OF THE INJURY/ILLNESS CONSISTENT WITH YOUR OBJECTIVE FINDING? YES WHAT IS THE PERCENTAGE OF TEMPORARY IMPAIRMENT? MODERATE TO MARKED = 66.7% IS THE PATIENT WORKING? YES DOCTOR ON SITE: GLENN NICHOLS MD PROCEDURE CODES FA211 ESTABILISHED PATIENT [facility] FACILITY CHARGE DISPOSITION & COMMUNICATION FOLLOW UP 3 MONTHS (REASON: CHRONIC PAIN ) ELECTRONICALLY SIGNED BY OMID CROW ON 05/26/2019 AT 01:40 PM EDT DISCLAIMER : THIS IS A VISIT SUMMARY EXTRACTED FROM THE [employer] CHART. IT IS NOT A COPY OF THE [employer] PROGRESS NOTE. RACHEL
== END ==
LOC: M PAIN 14:30
PROVIDERS: ATTEND Family Medicine
DX: M47.817 Spondylosis without myelopathy or radiculopathy, lumbosacral region (principal); G89.29 Other chronic pain; K21.9 Gastro-esophageal reflux disease without esophagitis; I10 Essential (primary) hypertension; Z87.891 Personal history of nicotine dependence; Z79.899 Other long term (current) drug therapy

== ENCOUNTER 2019-07-12 03:41 | Emergency (ER) | payer OTHER ==
[~2019-07-12] VITALS: Ht 170.2 cm; Wt 84.1 kg
[2019-07-12] MEDS ORDERED: MORPHINE 4 MG/ML 1ML VIAL/SYRINGE (J2270) IM ONE (04:30)
[2019-07-12] MEDS ORDERED: NORCO 5/325MG TABLET (BULK FOR ED) PO ONE (05:00)
[2019-07-12 05:08] VITALS: BP 156/103
--- NOTE | 2019-07-12 07:58 | REP ---
Left tibia-fibula four views: There is a nondisplaced fracture of the distal fibula. There is no dislocation. The medial facet of the tibiotalar joint is widened. There are no calcifications or foreign bodies. Electronically Signed by Bj Walker MD 07/12/2019 07:49 A
--- NOTE | 2019-07-12 07:58 | REP ---
Left ankle four views: There is a spiral fracture of the distal fibula. The ankle mortise is widened medially. Mineralization is normal. No calcifications or foreign bodies. Electronically Signed by Bj Walker MD 07/12/2019 07:50 A
== END 2019-07-12 05:38 | disposition home or self-care (01) ==
LOC: M ED 03:41
DX: S82.62XA Displaced fracture of lateral malleolus of left fibula, initial encounter for closed fracture (principal); X50.1XXA Overexertion from prolonged static or awkward postures, initial encounter; Y92.099 Unspecified place in other non-institutional residence as the place of occurrence of the external cause; Y93.9 Activity, unspecified; Y99.9 Unspecified external cause status; I10 Essential (primary) hypertension; K21.9 Gastro-esophageal reflux disease without esophagitis; G89.29 Other chronic pain; M54.9 Dorsalgia, unspecified; Z79.899 Other long term (current) drug therapy; J30.9 Allergic rhinitis, unspecified
CPT/HCPCS: 73590; 73610; 96372; 99283; J2270

== ENCOUNTER → 2019-07-15 | Outpatient (CLI) | payer OTHER ==
--- NOTE | 2019-07-15 15:28 | ECGEPIP ---
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
== END ==
LOC: M EKG 10:35
PROVIDERS: ATTEND Physician Assistant
DX: Z01.810 Encounter for preprocedural cardiovascular examination (principal)

== ENCOUNTER → 2019-08-20 | Outpatient (CLI) | payer OTHER ==
--- NOTE | 2019-08-21 23:15 | ECWPNPC ---
PATIENT NAME: JASON VILLAFUERTE : 1960 GENDER: MALE VISIT DATE: 08/20/2019 DISCHARGE DATE: 08/20/19 1457 VISIT LOCKED DATE TIME: PHYSICIAN: ZOYA RODRIGUEZ RESOURCE: ZOYA RODRIGUEZ REASON FOR APPOINTMENT 1. W/C BACK/MEDS HISTORY OF PRESENT ILLNESS HISTORY OF PRESENT ILLNESS: PAIN THE PATIENT DESCRIBES THE PAIN... 57 YEAR OLD MALE PATIENT WITH A HISTORY OF CHRONIC LOW BACK PAIN. THE PATIENT DESCRIBES THE PAIN ACHING, SORE, TENDER, SHARP, STABBING, SHOOTING, AND CONTINUOUS WITH A PAIN SCORE OF 3/10 DEPENDING ON PHYSICAL ACTIVITY. 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 THE PATIENT SAYS THAT HIS PAIN IS MAINLY LOCATED ON THE LEFT SIDE OF HIS LOW BACK AND RADIATES DOWN BOTH OF HIS LEGS. THE PATIENT IS CURRENTLY USING OXYCODONE TO AID IN PAIN RELIEF AND SAYS THAT THE USE OF THE MEDICATION HELPS HIM REMAIN MOBILE AND FUNCTIONAL, BUT HE STILL HAS SOME PAIN. FALL RISK SCREENING: SCREENING :NO FALLS REPORTED IN THE LAST YEAR CURRENT MEDICATIONS TAKING TIZANIDINE HCL 4 MG TABLET 1 TABLET NEEDED ORALLY QHS PRN FOR SPASMS AND PAIN MAY REPEAT IN 5 HRS MDD2 TAKING AMLODIPINE BESYLATE 5 MG TABLET 1 TABLET ORALLY ONCE A DAY TAKING OXYCODONE HCL 5 MG TABLET 1 TABLET NEEDED ORALLY FOR PAIN EVERY 6 HOURS NEEDED TAKING APPLE CIDER VINEGAR 500 MG TABLET DIRECTED ORALLY TAKING CO Q 10 10 MG CAPSULE 1 CAPSULE WITH A MEAL ORALLY ONCE A DAY TAKING VITAMIN D 50 MCG (1999 UT) TABLET 1 TABLET ORALLY ONCE A DAY NOT-TAKING OMEPRAZOLE 20 MG CAPSULE DELAYED RELEASE 1 CAPSULE ORALLY ONCE DAILY MEDICATION LIST REVIEWED AND RECONCILED WITH THE PATIENT PAST MEDICAL HISTORY CHRONIC BACK AND NECK PAIN GERD HTN ALLERGIES ENVIRONMENTAL: HAY FEVER - ALLERGY SURGICAL HISTORY 4 BACK SURGERY 2011 CERVICLE SURGERY 2011 CHOLECYSECTOMY 1995 LEFT ANKLE SURGERY 07/23/19 FAMILY HISTORY FATHER: , DIAGNOSED WITH OTHER MALIGNANT NEOPLASM OF UNSPECIFIED SITE MOTHER: , HYPERTENSION 4 BROTHER(S) , 1 SISTER(S) . 1 SON(S) , 1 DAUGHTER(S) - HEALTHY. SOCIAL HISTORY GENERAL: TOBACCO USE ARE YOU A:CURRENT SMOKER ARE YOU INTERESTED IN QUITTING?NOT READY TO QUIT COUNSELED THE PATIENT ON SMOKING EFFECTS, EDUCATION [id number]/18/2019 PAIN CLINIC PFS, CLERGY, PUBLIC HEALTH REFERRALS PFS REFERRAL NEEDED?NO CLERGY REFERRAL NEEDED?NO PUBLIC HEALTH REFERRAL NEEDED?NO WAS THE PROVIDER NOTIFIED OF ANY PERTINENT INFO?YES HAS THE PATIENT BEEN EDUCATED REGARDING HIS/HER PLAN OF CARE?YES HAS THE PATIENT BEEN EDUCATED REGARDING PAIN, THE RISK FOR PAIN, THE IMPORTANCE OF EFFECTIVE PAIN MANAGEMENT, AND THE PAIN ASSESSMENT PROCESS?YES LATEX QUESTIONNAIRE LATEX ALLERGY : HAVE YOU EVER DEVELOPED ANY TYPE OF REACTION AFTER HANDLING LATEX PRODUCTS SUCH RUBBER GLOVES, CONDOMS, DIAPHRAGMS, BALLOONS, SOCKS, OR UNDERWEAR?NO LATEX ALLERGY : HAVE YOU EVER DEVELOPED ANY TYPE OF REACTION DURING OR AFTER DENTAL APPOINTMENT, VAGINAL/RECTAL EXAMINATION, SURGICAL PROCEDURE, OR ANY OTHER EXPOSURE?NO DATE ASKED : 05/23/2019 LATEX RISK : HAVE YOU EVER HAD ANY DIFFICULTY BREATHING OR HIVES AFTER EATING OR HANDLING ANY FRUITS, OR VEGETABLES; SUCH KIWI, BANANAS, STONE FRUITS, OR CHESTNUTSNO LATEX RISK : DO YOU HAVE A PREVIOUS PERSONAL HISTORY OF MORE THAN NINE SURGERIES, SPINA BIFIDA, OR REPEATED CATHERIZATIONS? NO LATEX RISK : ARE YOU FREQUENTLY EXPOSED TO LATEX PRODUCTS IN YOUR OCCUPATION?NO CAFFEINE CAFFEINE USE?YES HOW OFTEN AND HOW MUCH? 2 CUPS EVERY MORNING ADVANCE DIRECTIVE ADVANCE DIRECTIVE DISCUSSED WITH PATIENT:YES DECLINED HCP INFORMATION AND ASSISTANCE AT THIS TIME 08/20/19 LANGUAGE LANGUAGES SPOKEN:SOMALI ALCOHOL SCREENING DID YOU HAVE A DRINK CONTAINING ALCOHOL IN THE PAST YEAR?YES HOW OFTEN DID YOU HAVE SIX OR MORE DRINKS ON ONE OCCASION IN THE PAST YEAR?LESS THAN MONTHLY (1 POINT) HOW OFTEN DID YOU HAVE A DRINK CONTAINING ALCOHOL IN THE PAST YEAR?TWO TO FOUR TIMES A MONTH (2 POINTS) POINTS3 INTERPRETATIONNEGATIVE RECREATIONAL DRUG USE DRUG USE?NO LEARNING BARRIERS / SPECIAL NEEDS ORIENTED TO PLAN OF CARE: PATIENT, PAIN MANAGEMENT PATIENT, ORIENTED TO PLAN OF CARE: PATIENT, PAIN MANAGEMENT PATIENT. REVIEWED WITH PATIENT 09/19/18 1518 JSREVIEWED WITH PT 01/09/19 0855 BVREVIEWED WITH PATIENT 08/20/19 1441 BV. HOSPITALIZATION/MAJOR DIAGNOSTIC PROCEDURE PANCREATITIS SURGERY RELATED REVIEW OF SYSTEMS REVIEWED BY: PROVIDER: ELLIS CABRERA . CONSTITUTIONAL: ANY CHANGE IN YOUR MEDICAL CONDITION? NO . CHILLS NO . FEVER NO . INFECTION: DO YOU HAVE NEW INFECTIONS? NO . DO YOU HAVE HISTORY OF MRSA? NO . MUSCULOSKELETAL: ANY NEW PATTERNS OF PAIN OR NUMBNESS? NO . GASTROENTEROLOGY: ANY NEW CHANGE IN BOWEL CONTROL? NO . GENITOURINARY: ANY NEW CHANGE IN BLADDER CONTROL? NO . IS THERE A CHANCE YOU COULD BE ? NO . HEMATOLOGY/LYMPH: DO YOU TAKE ANY BLOOD THINNERS? (FOR EXAMPLE- COUMADIN, PLAVIX, AGGRENOX, PLATEL, PRADAXA, OR XARELTO) NO . WHEN WAS YOUR LAST DOSE? DATE: TIME: . NEUROLOGY: HAVE YOU FALLEN IN THE PAST 12 MONTHS? YES, PT HAD A FALL IN EARLY JULY AND BROKE LEFT ANKLE. HAD LEFT ANKLE SURGERY 07/23. DENIES ANY OTHER FALLS THIS PAST YEAR . ANY NEW EXTREMITY NUMBNESS OR WEAKNESS? NO . CARDIOLOGY: DO YOU HAVE A PACEMAKER OR DEFIBRILLATOR? NO . RESPIRATORY: HAVE YOU BEEN SICK IN THE PAST WEEK? NO . FEVER NO . FLU LIKE SYMPTOMS? NO . COUGH NO . INTEGUMENTARY: DO YOU HAVE ANY RASHES OR OPEN SORES? NO . ALLERGIC/IMMUNO: ARE YOU ALLERGIC TO IV DYE? NO . ANY NEW ALLERGIES? NO . PSYCHIATRIC: DO YOU HAVE THOUGHTS OF HURTING YOURSELF OR SOMEONE ELSE? NO . ARE YOU ABUSED, NEGLECTED, OR IN AN UNSAFE ENVIRONMENT? NO . ENDOCRINOLOGY: ARE YOU DIABETIC? NO . OTHER: DO YOU NEED ANY PRESCRIPTIONS? YES, OXYCODONE AND TIZANIDINE . IF YES, PLEASE LIST: ____ . ANY NEW PROBLEMS WITH YOUR MEDICATIONS? NO . WHEN DID YOU LAST EAT? ____ . WHEN DID YOU LAST DRINK? ____ . WHAT DID YOU LAST DRINK? ____ . NAME OF PERSON DRIVING YOU HOME? ____ . DO YOU HAVE ANY OTHER QUESTIONS OR CONCERNS NO . VITAL SIGNS WT 195.8 LBS, HT 69 IN, BMI 28.91 INDEX, BP 148/89 MM HG, HR 63 /MIN, RR 16 /MIN, TEMP 97.3 F, OXYGEN SAT % 98%, NA INITIALS SC 13:55, REVIEWED BY: BV. EXAMINATION GENERAL EXAMINATION: GENERALNO ACUTE DISTRESS, WELL NOURISHED AND HYDRATED. PSYCHAPPROPRIATE MOOD AND AFFECT . LUNGS:CLEAR TO AUSCULTATION BILATERALLY, NO WHEEZES, RHONCHI, RALES. HEART:NO MURMURS, REGULAR RATE AND RHYTHM. ASSESSMENTS SPONDYLOSIS WITHOUT MYELOPATHY OR RADICULOPATHY, LUMBOSACRAL REGION - M47.817 (PRIMARY) TREATMENT SPONDYLOSIS WITHOUT MYELOPATHY OR RADICULOPATHY, LUMBOSACRAL REGION CLINICAL NOTES: 58-YEAR-OLD MALE IN FOR WORKER'S COMP. CHRONIC PAIN FOLLOW-UP. GIVEN PRESENTING SYMPTOMS AND RESULTS PHYSICAL EXAMINATION RECOMMENDED CONTINUATION CURRENT MEDICATION REGIMEN WITH FOLLOW-UP IN 3 MONTHS. PATIENT HAS EXPRESSED UNDERSTANDING OF AND WAS IN AGREEMENT WITH TREATMENT PLAN. GIVEN TIME TO ASK QUESTIONS AND EXPRESS CONCERNS., I[employer] REGISTRY REVIEWED AND DEMONSTRATES COMPLLIANCE. (REF # [id number] ) BRINGS IN MEDICATIONS WHICH IS APPROPRIATE FOR WHAT WAS DISPENSED. RECENT URINE TOXICOLOGY REVIEWED. NO UNAUTHORIZED MEDICATIONS. NO ILLICIT SUBSTANCES AND PRESCRIBED MEDICATIONS WERE PRESENT. OTHERS REFILL OXYCODONE HCL TABLET, 5 MG, 1 TABLET NEEDED, ORALLY FOR PAIN, EVERY 6 HOURS NEEDED, 30 DAY(S), 90, REFILLS 0 REFILL TIZANIDINE HCL TABLET, 4 MG, 1 TABLET NEEDED, ORALLY, QHS PRN FOR SPASMS AND PAIN MAY REPEAT IN 5 HRS MDD2, 30 DAY(S), 45, REFILLS 1 PROCEDURES PN WORKMANS' COMP OPINION IN YOUR OPINION, WAS THE INCIDENT THAT THE PATIENT DESCRIBED THE COMPETENT MEDICAL CAUSE OF THIS INJURY/ILLNESS? YES ARE THE PATIENT'S COMPLAINTS CONSISTENT WITH HIS/HER HISTORY OF THE INJURY/ILLNESS? YES IS THE PATIENT'S HISTORY OF THE INJURY/ILLNESS CONSISTENT WITH YOUR OBJECTIVE FINDING? YES WHAT IS THE PERCENTAGE OF TEMPORARY IMPAIRMENT? MODERATE TO MARKED = 66.7% IS THE PATIENT WORKING? YES DOCTOR ON SITE: GLENN NICHOLS MD PROCEDURE CODES FA211 ESTABILISHED PATIENT [facility] FACILITY CHARGE DISPOSITION & COMMUNICATION FOLLOW UP 3 MONTHS (REASON: BACK PAIN, WORKMEN'S COMP.) ELECTRONICALLY SIGNED BY OMID CROW ON 08/21/2019 AT 01:11 PM EST DISCLAIMER : THIS IS A VISIT SUMMARY EXTRACTED FROM THE [employer] CHART. IT IS NOT A COPY OF THE [employer] PROGRESS NOTE. RACHEL
== END ==
LOC: M PAIN 13:45
PROVIDERS: ATTEND Family Medicine
DX: M47.817 Spondylosis without myelopathy or radiculopathy, lumbosacral region (principal); G89.29 Other chronic pain; I10 Essential (primary) hypertension; F17.210 Nicotine dependence, cigarettes, uncomplicated; Z79.899 Other long term (current) drug therapy

== ENCOUNTER → 2019-12-30 | Outpatient (CLI) | payer OTHER ==
--- NOTE | 2020-01-01 00:02 | ECWPNPC ---
PATIENT NAME: JASON VILLAFUERTE : 1960 GENDER: MALE VISIT DATE: 12/30/2019 DISCHARGE DATE: 12/30/19 1222 VISIT LOCKED DATE TIME: PHYSICIAN: ZOYA RODRIGUEZ RESOURCE: ZOYA RODRIGUEZ REASON FOR APPOINTMENT 1. W/C [facility] [phone] HISTORY OF PRESENT ILLNESS HISTORY OF PRESENT ILLNESS: PAIN THE PATIENT DESCRIBES THE PAIN... PERMISSION REQUESTED AND RECEIVED FROM PATIENT TO PERFORM TELEHEALTH VISIT. 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 HE RATES HIS PAIN CURRENTLY AT A 4 OUT OF 10 AND DESCRIBES IT ACHING, AND THROBBING. HE FEELS MEDICATIONS ARE HELPFUL AND DENIES MED SIDE EFFECTS AT THIS TIME. PATIENT HAD A BILATERAL THERAPEUTIC FACET BLOCK DONE IN JANUARY OF LAST YEAR WHICH SHE REPORTS GAVE HIM 80% REDUCTION IN PAIN. HE DOES ADMIT THAT THE PAIN IS STARTING TO RETURN AND HE WOULD LIKE TO DISCUSS A REPEAT PROCEDURE. 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 THE PATIENT SAYS THAT HIS PAIN IS MAINLY LOCATED ON THE LEFT SIDE OF HIS LOW BACK AND RADIATES DOWN BOTH OF HIS LEGS. THE PATIENT IS CURRENTLY USING OXYCODONE TO AID IN PAIN RELIEF AND SAYS THAT THE USE OF THE MEDICATION HELPS HIM REMAIN MOBILE AND FUNCTIONAL, BUT HE STILL HAS SOME PAIN. FALL RISK SCREENING: SCREENING :NO FALLS REPORTED IN THE LAST YEAR CURRENT MEDICATIONS UNKNOWN AMLODIPINE BESYLATE 5 MG TABLET 1 TABLET ORALLY ONCE A DAY UNKNOWN APPLE CIDER VINEGAR 500 MG TABLET DIRECTED ORALLY UNKNOWN CO Q 10 10 MG CAPSULE 1 CAPSULE WITH A MEAL ORALLY ONCE A DAY UNKNOWN VITAMIN D 50 MCG (1999 UT) TABLET 1 TABLET ORALLY ONCE A DAY UNKNOWN TIZANIDINE HCL 4 MG TABLET 1 TABLET NEEDED ORALLY QHS PRN FOR SPASMS AND PAIN MAY REPEAT IN 5 HRS MDD2 UNKNOWN OXYCODONE HCL 5 MG TABLET 1 TABLET NEEDED ORALLY FOR PAIN EVERY 6 HOURS NEEDED UNKNOWN OMEPRAZOLE 20 MG CAPSULE DELAYED RELEASE 1 CAPSULE ORALLY ONCE DAILY MEDICATION LIST REVIEWED AND RECONCILED WITH THE PATIENT PAST MEDICAL HISTORY CHRONIC BACK AND NECK PAIN GERD HTN ALLERGIES ENVIRONMENTAL: HAY FEVER - ALLERGY SURGICAL HISTORY 4 BACK SURGERY 2011 CERVICLE SURGERY 2012 CHOLECYSECTOMY 1995 LEFT ANKLE FX WITH PLATE 2018 FAMILY HISTORY FATHER: , DIAGNOSED WITH OTHER MALIGNANT NEOPLASM OF UNSPECIFIED SITE MOTHER: , HYPERTENSION 4 BROTHER(S) , 1 SISTER(S) . 1 SON(S) , 1 DAUGHTER(S) - HEALTHY. SOCIAL HISTORY GENERAL: TOBACCO USE ARE YOU A:CURRENT SMOKER ARE YOU INTERESTED IN QUITTING?NOT READY TO QUIT COUNSELED THE PATIENT ON SMOKING EFFECTS, EDUCATION [id number]/2019 PATIENT COUNSELED ON THE DANGERS OF TOBACCO USE AND URGED TO QUIT:12/29/2019 LATEX QUESTIONNAIRE LATEX ALLERGY : HAVE YOU EVER DEVELOPED ANY TYPE OF REACTION AFTER HANDLING LATEX PRODUCTS SUCH RUBBER GLOVES, CONDOMS, DIAPHRAGMS, BALLOONS, SOCKS, OR UNDERWEAR?NO LATEX ALLERGY : HAVE YOU EVER DEVELOPED ANY TYPE OF REACTION DURING OR AFTER DENTAL APPOINTMENT, VAGINAL/RECTAL EXAMINATION, SURGICAL PROCEDURE, OR ANY OTHER EXPOSURE?NO LATEX RISK : HAVE YOU EVER HAD ANY DIFFICULTY BREATHING OR HIVES AFTER EATING OR HANDLING ANY FRUITS, OR VEGETABLES; SUCH KIWI, BANANAS, STONE FRUITS, OR CHESTNUTSNO LATEX RISK : DO YOU HAVE A PREVIOUS PERSONAL HISTORY OF MORE THAN NINE SURGERIES, SPINA BIFIDA, OR REPEATED CATHERIZATIONS? NO LATEX RISK : ARE YOU FREQUENTLY EXPOSED TO LATEX PRODUCTS IN YOUR OCCUPATION?NO DATE ASKED : 12/29/2019 ALCOHOL SCREENING DID YOU HAVE A DRINK CONTAINING ALCOHOL IN THE PAST YEAR?YES HOW OFTEN DID YOU HAVE SIX OR MORE DRINKS ON ONE OCCASION IN THE PAST YEAR?LESS THAN MONTHLY (1 POINT) HOW OFTEN DID YOU HAVE A DRINK CONTAINING ALCOHOL IN THE PAST YEAR?TWO TO FOUR TIMES A MONTH (2 POINTS) POINTS3 INTERPRETATIONNEGATIVE RECREATIONAL DRUG USE DRUG USE?NO CAFFEINE CAFFEINE USE?YES HOW OFTEN AND HOW MUCH? 2 CUPS EVERY MORNING LANGUAGE LANGUAGES SPOKEN:BRAZILIAN LEARNING BARRIERS / SPECIAL NEEDS ORIENTED TO PLAN OF CARE: PATIENT, PAIN MANAGEMENT PATIENT, ORIENTED TO PLAN OF CARE: PATIENT, PAIN MANAGEMENT PATIENT. DIET: REGULAR. EXERCISE: NO REGULAR EXERCISE, DAILY JOB DUTIES. MARITAL STATUS: SINGLE. OTHERS AT HOME: LIVES WITH OTHERS. NEW PATIENT PAIN DIARY TODAY'S VISIT 12/29/2019 PATIENT DESCRIBES PAIN :ACHING, HAVE IT ALL THE TIME, SHARP, STABBING, TENDER, THROBBING, SORE, SHOOTING FROM 0-10, WHAT LEVEL IS YOUR PAIN TODAY?4 PAIN CLINIC PFS, CLERGY, PUBLIC HEALTH REFERRALS PFS REFERRAL NEEDED?NO CLERGY REFERRAL NEEDED?NO PUBLIC HEALTH REFERRAL NEEDED?NO WAS THE PROVIDER NOTIFIED OF ANY PERTINENT INFO?YES HAS THE PATIENT BEEN EDUCATED REGARDING HIS/HER PLAN OF CARE?YES HAS THE PATIENT BEEN EDUCATED REGARDING PAIN, THE RISK FOR PAIN, THE IMPORTANCE OF EFFECTIVE PAIN MANAGEMENT, AND THE PAIN ASSESSMENT PROCESS?YES ADVANCE DIRECTIVE ADVANCE DIRECTIVE DISCUSSED WITH PATIENT:YES DECLINED HCP INFORMATION AND ASSISTANCE AT THIS TIME HOSPITALIZATION/MAJOR DIAGNOSTIC PROCEDURE PANCREATITIS SURGERY RELATED REVIEW OF SYSTEMS REVIEWED BY: PROVIDER: ELLIS RODRIGUEZ BENEFITS OFFICER-C . CONSTITUTIONAL: ANY CHANGE IN YOUR MEDICAL CONDITION? NO . CHILLS NO . FEVER NO . INFECTION: DO YOU HAVE NEW INFECTIONS? NO . DO YOU HAVE HISTORY OF MRSA? NO . MUSCULOSKELETAL: ANY NEW PATTERNS OF PAIN OR NUMBNESS? NO . GASTROENTEROLOGY: ANY NEW CHANGE IN BOWEL CONTROL? NO . GENITOURINARY: ANY NEW CHANGE IN BLADDER CONTROL? NO . IS THERE A CHANCE YOU COULD BE ? NO . HEMATOLOGY/LYMPH: DO YOU TAKE ANY BLOOD THINNERS? (FOR EXAMPLE- COUMADIN, PLAVIX, AGGRENOX, PLATEL, PRADAXA, OR XARELTO) NO . WHEN WAS YOUR LAST DOSE? DATE: TIME: . NEUROLOGY: HAVE YOU FALLEN IN THE PAST 12 MONTHS? NO . ANY NEW EXTREMITY NUMBNESS OR WEAKNESS? NO . CARDIOLOGY: DO YOU HAVE A PACEMAKER OR DEFIBRILLATOR? PLATE IN ANKLE, NECK AND BACK RODS . RESPIRATORY: HAVE YOU BEEN SICK IN THE PAST WEEK? NO . FEVER NO . FLU LIKE SYMPTOMS? NO . COUGH NO . INTEGUMENTARY: DO YOU HAVE ANY RASHES OR OPEN SORES? NO . ALLERGIC/IMMUNO: ARE YOU ALLERGIC TO IV DYE? NO . ANY NEW ALLERGIES? NO . PSYCHIATRIC: DO YOU HAVE THOUGHTS OF HURTING YOURSELF OR SOMEONE ELSE? NO . ARE YOU ABUSED, NEGLECTED, OR IN AN UNSAFE ENVIRONMENT? NO . ENDOCRINOLOGY: ARE YOU DIABETIC? NO . OTHER: DO YOU NEED ANY PRESCRIPTIONS? NO . IF YES, PLEASE LIST: ____ . ANY NEW PROBLEMS WITH YOUR MEDICATIONS? NO . WHEN DID YOU LAST EAT? ____ . WHEN DID YOU LAST DRINK? ____ . WHAT DID YOU LAST DRINK? ____ . NAME OF PERSON DRIVING YOU HOME? ____ . EXAMINATION GENERAL EXAMINATION: GENERALNO ACUTE DISTRESS, WELL NOURISHED AND HYDRATED. PSYCHAPPROPRIATE MOOD AND AFFECT , ORIENTED X 3. ASSESSMENTS SPONDYLOSIS WITHOUT MYELOPATHY OR RADICULOPATHY, LUMBOSACRAL REGION - M47.817 (PRIMARY) TREATMENT SPONDYLOSIS WITHOUT MYELOPATHY OR RADICULOPATHY, LUMBOSACRAL REGION CLINICAL NOTES: 59-YEAR-OLD MALE IN FOR CHRONIC PAIN FOLLOW-UP. GIVEN PRESENTING SYMPTOMS RECOMMEND FOLLOW-UP IN ONE MONTH TO DISCUSS POTENTIAL BILATERAL THERAPEUTIC FACET BLOCK PROCEDURE. FURTHER RECOMMENDED CONTINUATION OF CURRENT MEDICATION REGIMEN. PATIENT HAS EXPRESSED UNDERSTANDING OF AND WAS IN AGREEMENT WITH TREATMENT PLAN. GIVEN TIME TO ASK QUESTIONS AND EXPRESS CONCERNS. , ISTOP REGISTRY REVIEWED AND DEMONSTRATES COMPLLIANCE. (REF # [id number] ) BRINGS IN MEDICATIONS WHICH IS APPROPRIATE FOR WHAT WAS DISPENSED. RECENT URINE TOXICOLOGY REVIEWED. NO UNAUTHORIZED MEDICATIONS. NO ILLICIT SUBSTANCES AND PRESCRIBED MEDICATIONS WERE PRESENT. TELEHEALTH VISIT CONDUCTED VIA ZOOM. TIME SPENT WITH PATIENT 9 MINUTES. PROCEDURES PN WORKMANS' COMP OPINION IN YOUR OPINION, WAS THE INCIDENT THAT THE PATIENT DESCRIBED THE COMPETENT MEDICAL CAUSE OF THIS INJURY/ILLNESS? YES ARE THE PATIENT'S COMPLAINTS CONSISTENT WITH HIS/HER HISTORY OF THE INJURY/ILLNESS? YES IS THE PATIENT'S HISTORY OF THE INJURY/ILLNESS CONSISTENT WITH YOUR OBJECTIVE FINDING? YES WHAT IS THE PERCENTAGE OF TEMPORARY IMPAIRMENT? MODERATE TO MARKED = 66.7% IS THE PATIENT WORKING? YES DOCTOR ON SITE: GLENN NICHOLS MD PREVENT[facility]ICINE PAIN CLINIC TEACHING: THE PATIENT HAS BEEN EDUCATED REGARDING HIS/HER PLAN OF CARE : PT HAS GIVEN PERMISSION TO CONDUCT ZOOM CALL FOR VIRTUAL VISIT. DS UNABLE TO OBTAIN VITAL SIGNS DUE TO VIRTUAL VISIT, PT ACKNOWLEDGES UNDERSTANDING FOR ACCESS TO VIRTUAL VISIT. DS DISPOSITION & COMMUNICATION FOLLOW UP 4 WEEKS (REASON: BACK PAIN, WORKER'S COMP.) ELECTRONICALLY SIGNED BY OMID CROW ON 12/31/2019 AT 10:52 AM EDT DISCLAIMER : THIS IS A VISIT SUMMARY EXTRACTED FROM THE [employer] CHART. IT IS NOT A COPY OF THE [employer] PROGRESS NOTE. RACHEL
== END ==
LOC: M PAIN 11:00
PROVIDERS: ATTEND Family Medicine
DX: M47.817 Spondylosis without myelopathy or radiculopathy, lumbosacral region (principal); I10 Essential (primary) hypertension; F17.210 Nicotine dependence, cigarettes, uncomplicated; Z79.891 Long term (current) use of opiate analgesic; Z79.899 Other long term (current) drug therapy

== ENCOUNTER → 2020-02-12 | Outpatient (CLI) | payer OTHER ==
--- NOTE | 2020-02-16 23:30 | ECWPNPC ---
PATIENT NAME: JASON VILLAFUERTE : 1960 GENDER: MALE VISIT DATE: 02/12/2020 DISCHARGE DATE: 02/12/20 1456 VISIT LOCKED DATE TIME: PHYSICIAN: ZOYA RODRIGUEZ RESOURCE: ZOYA RODRIGUEZ REASON FOR APPOINTMENT 1. W/C BACK IN OFFICE HISTORY OF PRESENT ILLNESS GENERAL: -59-YEAR-OLD MALE IN FOR WORKER'S COMP. CHRONIC PAIN FOLLOW-UP. HE RATES HIS PAIN CURRENTLY AT A 3 OUT OF 10. HE FEELS MEDICATIONS ARE HELPFUL AND DENIES MED SIDE EFFECTS AT THIS TIME. HE DOES ADMIT TO INCREASED LOW BACK PAIN OF LATE. 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 THE PATIENT SAYS THAT HIS PAIN IS MAINLY LOCATED ON THE LEFT SIDE OF HIS LOW BACK AND RADIATES DOWN BOTH OF HIS LEGS. THE PATIENT IS CURRENTLY USING OXYCODONE TO AID IN PAIN RELIEF AND SAYS THAT THE USE OF THE MEDICATION HELPS HIM REMAIN MOBILE AND FUNCTIONAL, BUT HE STILL HAS SOME PAIN. PAIN SCREENING: PATIENT HAS A COMPLAINT OF ACUTE OR CHRONIC PAIN :YES LOCATION OF PAIN:LOW BACK RIGHT INTENSITY OF PAIN (SCALE OF 1 TO 10):3 WHAT DOES YOUR PAIN FEEL LIKE:ACHING, STABBING, THROBBING DURATION:CONTINOUS, CONSTANT, ALL DAY, MAINLY DURING THE DAY PAIN IS INCREASED BY:ACTIVITIES, PROLONGED STANDING PAIN IS DECREASED BY:USE OF PAIN MEDICATIONS PAIN HAS INTERFERED WITH THE FOLLOWING:MOOD, HOUSEWORK, RELATIONSHIP WITH OTHERS, ENJOYMENT OF LIFE PLAN/GOALS/TREATMENT/INTERVENTION/FOLLOW UP:SEE PLAN FALL RISK SCREENING: SCREENING :NO FALLS REPORTED IN THE LAST YEAR NURSING NOTE: -. PAIN CENTER INTAKE QUESTIONS: DO YOU HAVE A HISTORY OF MRSA? :NO DO YOU TAKE A BLOOD THINNERS? :NO DO YOU HAVE ANY BLEEDING DISORDERS? :NO ANY NEW NUMBNESS OR WEAKNESS IN YOUR LEGS OR ARMS? :NO ANY PACEMAKER,DEFIBRILLATOR, OR DORSAL COLUMN STIMULATOR? :NO DO YOU HAVE ANY RASHES OR OPEN SORES? :NO ARE YOU ALLERGIC TO IV DYE? :NO ARE YOU DIABETIC? :NO ANY NEW PROBLEMS WITH YOUR MEDICATIONS? :NO HAVE YOU RECEIVED A VACCINE IN THE PAST 30 DAYS? :NO DO YOU PLAN TO RECEIVE A VACCINE IN THE NEXT 21 DAYS? :NO DO YOU NEED ANY PRESCRIPTION? :YES OXYCODONE, TIZANIDINE DO YOU TAKE ANY IMMUNOSUPPRESSIVE MEDICATIONS? :NO IS THERE A CHANCE YOU COULD BE ? :NO ARE YOU BREAST FEEDING? :NO CURRENT MEDICATIONS TAKING OXYCODONE HCL 5 MG TABLET 1 TABLET NEEDED ORALLY FOR PAIN EVERY 6 HOURS NEEDED TAKING AMLODIPINE BESYLATE 5 MG TABLET 1 TABLET ORALLY ONCE A DAY TAKING APPLE CIDER VINEGAR 500 MG TABLET DIRECTED ORALLY TAKING TIZANIDINE HCL 4 MG TABLET 1 TABLET NEEDED ORALLY QHS PRN FOR SPASMS AND PAIN MAY REPEAT IN 5 HRS MDD2 TAKING OMEPRAZOLE 20 MG CAPSULE DELAYED RELEASE 1 CAPSULE ORALLY ONCE DAILY NOT-TAKING CO Q 10 10 MG CAPSULE 1 CAPSULE WITH A MEAL ORALLY ONCE A DAY NOT-TAKING VITAMIN D 50 MCG (1999) TABLET 1 TABLET ORALLY ONCE A DAY MEDICATION LIST REVIEWED AND RECONCILED WITH THE PATIENT PAST MEDICAL HISTORY CHRONIC BACK AND NECK PAIN GERD HTN ALLERGIES ENVIRONMENTAL: HAY FEVER - ALLERGY SURGICAL HISTORY 4 BACK SURGERY 2010 CERVICLE SURGERY 2011 CHOLECYSECTOMY 1994 LEFT ANKLE FX WITH PLATE 2018 FAMILY HISTORY FATHER: , DIAGNOSED WITH OTHER MALIGNANT NEOPLASM OF UNSPECIFIED SITE MOTHER: , HYPERTENSION 4 BROTHER(S) , 1 SISTER(S) . 1 SON(S) , 1 DAUGHTER(S) - HEALTHY. SOCIAL HISTORY GENERAL: TOBACCO USE ARE YOU A:CURRENT SMOKER ARE YOU INTERESTED IN QUITTING?NOT READY TO QUIT COUNSELED THE PATIENT ON SMOKING EFFECTS, EDUCATION [id number]/11/2020 PATIENT COUNSELED ON THE DANGERS OF TOBACCO USE AND URGED TO QUIT:02/12/2020 SMOKING CESSATION INFORMATION GIVEN02/12/2020 LATEX QUESTIONNAIRE LATEX ALLERGY : HAVE YOU EVER DEVELOPED ANY TYPE OF REACTION AFTER HANDLING LATEX PRODUCTS SUCH RUBBER GLOVES, CONDOMS, DIAPHRAGMS, BALLOONS, SOCKS, OR UNDERWEAR?NO LATEX ALLERGY : HAVE YOU EVER DEVELOPED ANY TYPE OF REACTION DURING OR AFTER DENTAL APPOINTMENT, VAGINAL/RECTAL EXAMINATION, SURGICAL PROCEDURE, OR ANY OTHER EXPOSURE?NO LATEX RISK : HAVE YOU EVER HAD ANY DIFFICULTY BREATHING OR HIVES AFTER EATING OR HANDLING ANY FRUITS, OR VEGETABLES; SUCH KIWI, BANANAS, STONE FRUITS, OR CHESTNUTSNO LATEX RISK : DO YOU HAVE A PREVIOUS PERSONAL HISTORY OF MORE THAN NINE SURGERIES, SPINA BIFIDA, OR REPEATED CATHERIZATIONS? NO LATEX RISK : ARE YOU FREQUENTLY EXPOSED TO LATEX PRODUCTS IN YOUR OCCUPATION?NO DATE ASKED : 02/12/2020 ALCOHOL SCREENING DID YOU HAVE A DRINK CONTAINING ALCOHOL IN THE PAST YEAR?YES HOW OFTEN DID YOU HAVE SIX OR MORE DRINKS ON ONE OCCASION IN THE PAST YEAR?LESS THAN MONTHLY (1 POINT) HOW OFTEN DID YOU HAVE A DRINK CONTAINING ALCOHOL IN THE PAST YEAR?TWO TO FOUR TIMES A MONTH (2 POINTS) POINTS3 INTERPRETATIONNEGATIVE RECREATIONAL DRUG USE DRUG USE?NO CAFFEINE CAFFEINE USE?YES HOW OFTEN AND HOW MUCH? 2 CUPS EVERY MORNING LANGUAGE LANGUAGES SPOKEN:GUYANESE LEARNING BARRIERS / SPECIAL NEEDS ORIENTED TO PLAN OF CARE: PATIENT, PAIN MANAGEMENT PATIENT, ORIENTED TO PLAN OF CARE: PATIENT, PAIN MANAGEMENT PATIENT. DIET: REGULAR. EXERCISE: NO REGULAR EXERCISE, DAILY JOB DUTIES. MARITAL STATUS: SINGLE. OTHERS AT HOME: LIVES WITH OTHERS. NEW PATIENT PAIN DIARY TODAY'S VISIT 12/29/2019 PATIENT DESCRIBES PAIN :ACHING, HAVE IT ALL THE TIME, SHARP, STABBING, TENDER, THROBBING, SORE, SHOOTING FROM 0-10, WHAT LEVEL IS YOUR PAIN TODAY?4 PAIN CLINIC PFS, CLERGY, PUBLIC HEALTH REFERRALS PFS REFERRAL NEEDED?NO CLERGY REFERRAL NEEDED?NO PUBLIC HEALTH REFERRAL NEEDED?NO WAS THE PROVIDER NOTIFIED OF ANY PERTINENT INFO?YES HAS THE PATIENT BEEN EDUCATED REGARDING HIS/HER PLAN OF CARE?YES HAS THE PATIENT BEEN EDUCATED REGARDING PAIN, THE RISK FOR PAIN, THE IMPORTANCE OF EFFECTIVE PAIN MANAGEMENT, AND THE PAIN ASSESSMENT PROCESS?YES ADVANCE DIRECTIVE ADVANCE DIRECTIVE DISCUSSED WITH PATIENT:YES DECLINED HCP INFORMATION AND ASSISTANCE AT THIS TIME HOSPITALIZATION/MAJOR DIAGNOSTIC PROCEDURE PANCREATITIS SURGERY RELATED REVIEW OF SYSTEMS CONSTITUTIONAL: ANY RECENT FEVER OR ILLNESS NO . CHILLS NO . GASTROENTEROLOGY: BOWEL INCONTINENCE NO . ANY NEW CHANGE IN BOWEL CONTROL? NO . ABDOMINAL PAIN NO . CONSTIPATION NO . GENITOURINARY: ANY NEW CHANGE IN BLADDER CONTROL? NO . IS THERE A CHANCE YOU COULD BE ? NO . URINARY INCONTINENCE NO . CARDIOLOGY: CHEST PRESSURE NO . CHEST PAIN NO . RESPIRATORY: COUGH NO . SHORTNESS OF BREATH NO . VITAL SIGNS WT 198.0 LBS, HT 69 IN, BMI 29.24 INDEX, BP 138/86 MM HG, HR 63 /MIN, RR 16 /MIN, TEMP 97.8 F, OXYGEN SAT % 95%, SAFE IN ENV? 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 EXAMINATION GENERAL EXAMINATION: GENERALNO ACUTE DISTRESS, WELL NOURISHED AND HYDRATED. PSYCHAPPROPRIATE MOOD AND AFFECT . LUNGS:CLEAR TO AUSCULTATION BILATERALLY, NO WHEEZES, RHONCHI, RALES. HEART:NO MURMURS, REGULAR RATE AND RHYTHM. BACK:DENIES POINT TENDERNESS ALONG LUMBAR SPINE, STARTING SKIN SHOWS NO ERYTHEMA, ECCHYMOSIS, INCREASED WARMTH, AND/OR SKIN ERUPTIONS NOTED. . ASSESSMENTS SPONDYLOSIS OF LUMBOSACRAL REGION WITHOUT MYELOPATHY OR RADICULOPATHY - M47.817 (PRIMARY) TREATMENT SPONDYLOSIS OF LUMBOSACRAL REGION WITHOUT MYELOPATHY OR RADICULOPATHY NOTES: BILATERAL THERAPEUTIC FACET BLOCK L4-L5 L5-S1 WITH POST PROCEDURAL FOLLOW-UP. CLINICAL NOTES: 59-YEAR-OLD MALE IN FOR WORKER'S COMP. CHRONIC PAIN FOLLOW-UP. GIVEN PRESENTING SYMPTOMS AND RESULTS OF PHYSICAL EXAMINATION RECOMMEND BILATERAL THERAPEUTIC FACET BLOCK L4-L5 L5-S1 WITH POST PROCEDURAL FOLLOW-UP. PATIENT HAS EXPRESSED UNDERSTANDING OF AND WAS IN AGREEMENT WITH TREATMENT PLAN. GIVEN TIME TO ASK QUESTIONS AND EXPRESS CONCERNS. , ISTOP REGISTRY REVIEWED AND DEMONSTRATES COMPLLIANCE. (REF # [id number] ) BRINGS IN MEDICATIONS WHICH IS APPROPRIATE FOR WHAT WAS DISPENSED. RECENT URINE TOXICOLOGY REVIEWED. NO UNAUTHORIZED MEDICATIONS. NO ILLICIT SUBSTANCES AND PRESCRIBED MEDICATIONS WERE PRESENT. OTHERS REFILL OXYCODONE HCL TABLET, 5 MG, 1 TABLET NEEDED, ORALLY FOR PAIN, EVERY 6 HOURS NEEDED, 30 DAY(S), 90, REFILLS 0 REFILL TIZANIDINE HCL TABLET, 4 MG, 1 TABLET NEEDED, ORALLY, QHS PRN FOR SPASMS AND PAIN MAY REPEAT IN 5 HRS MDD2, 30 DAY(S), 45, REFILLS 1 NOTES: FACET JOINT INJECTION MATERIAL WAS PRINTED,FACET JOINT INJECTION MATERIAL WAS PRINTED,FACET JOINT INJECTION MATERIAL WAS PRINTED,FACET JOINT INJECTION MATERIAL WAS PRINTED,FACET JOINT INJECTION MATERIAL WAS PRINTED,FACET JOINT INJECTION MATERIAL WAS PRINTED,FACET JOINT INJECTION MATERIAL WAS PRINTED. PROCEDURES PN WORKMANS' COMP OPINION IN YOUR OPINION, WAS THE INCIDENT THAT THE PATIENT DESCRIBED THE COMPETENT MEDICAL CAUSE OF THIS INJURY/ILLNESS? YES ARE THE PATIENT'S COMPLAINTS CONSISTENT WITH HIS/HER HISTORY OF THE INJURY/ILLNESS? YES IS THE PATIENT'S HISTORY OF THE INJURY/ILLNESS CONSISTENT WITH YOUR OBJECTIVE FINDING? YES WHAT IS THE PERCENTAGE OF TEMPORARY IMPAIRMENT? MODERATE TO MARKED = 66.7% IS THE PATIENT WORKING? YES DOCTOR ON SITE: GLENN NICHOLS MD PROCEDURE CODES [id number] ESTABILISHED PATIENT [facility] CHARGE DISPOSITION & COMMUNICATION FOLLOW UP POSTPROCEDURE (REASON: BILATERAL THERAPEUTIC FACET BLOCK L4-L5 L5-S1) ELECTRONICALLY SIGNED BY OMID CROW ON 02/16/2020 AT 08:43 AM EDT DISCLAIMER : THIS IS A VISIT SUMMARY EXTRACTED FROM THE [employer] CHART. IT IS NOT A COPY OF THE [employer] PROGRESS NOTE. RACHEL
== END ==
LOC: M PAIN 14:15
PROVIDERS: ATTEND Family Medicine
DX: M47.817 Spondylosis without myelopathy or radiculopathy, lumbosacral region (principal)

== ENCOUNTER → 2020-03-16 | Outpatient (CLI) | payer OTHER ==
[~2020-03-16] MED LIST changes: +AMLO10TA PO; +AMLO1TAB24 PO; -AMLO5TAB6 PO; +ASPI81TA86 PO; +BUPIVACAINE HCL 0.25% 30ML VIAL As Ordered ONE; +ISOVUE-M 300 61% 15ML VIAL As Ordered ONE; +LIDOCAINE 1% SDV 30ML VIAL As Ordered ONE; +OXYC-517 PO; +PANT40TA29 PO; +TIZA4TAB4 PO; +TRIAMCINOLONE ACETONIDE SUSP 40 MG/ML VIAL (J3301) As Ordered ONE; +acid reflux med; +diazePAM 5 MG TAB As Ordered ONE; +oxyCODONE 5MG TAB As Ordered ONE
--- NOTE | 2020-03-17 04:55 | REP ---
C-ARM VIEWS LOWER LUMBAR SPINE: CLINICAL HISTORY: Pain. Three C-arm views lower lumbar spine performed during injections by Dr. Carrera. [place] are seen along the margins of the lower lumbar spine. 59 seconds of fluoroscopy time is utilized. Electronically Signed by Bj Aparicio MD 03/17/2020 11:09 P
--- NOTE | 2020-03-19 01:54 | ECWPNPC ---
PATIENT NAME: JASON VILLAFUERTE : 1960 GENDER: MALE VISIT DATE: 03/16/2020 DISCHARGE DATE: 03/16/201750 VISIT LOCKED DATE TIME: PHYSICIAN: GLENN BULLARD MD RESOURCE: GLENN BULLARD MD REASON FOR APPOINTMENT 1. SYED LFBT L4/L5, L5/S1 W/C HISTORY OF PRESENT ILLNESS GENERAL: -. FALL RISK SCREENING: SCREENING :NO FALLS REPORTED IN THE LAST YEAR PAIN SCREENING: PATIENT HAS A COMPLAINT OF ACUTE OR CHRONIC PAIN :YES LOCATION OF PAIN:LOW BACK INTENSITY OF PAIN (SCALE OF 1 TO 10):4 WHAT DOES YOUR PAIN FEEL LIKE:ACHING, CONTINOUS, THROBBING DURATION:CONTINOUS, AWAKENS FROM SLEEP PAIN IS INCREASED BY:ACTIVITIES, PROLONGED STANDING PAIN IS DECREASED BY:USE OF PAIN MEDICATIONS NURSING NOTE: -. PAIN CENTER INTAKE QUESTIONS: DO YOU HAVE A HISTORY OF MRSA? :NO DO YOU TAKE A BLOOD THINNERS? :NO DO YOU HAVE ANY BLEEDING DISORDERS? :NO ANY NEW NUMBNESS OR WEAKNESS IN YOUR LEGS OR ARMS? :NO ANY PACEMAKER,DEFIBRILLATOR, OR DORSAL COLUMN STIMULATOR? :NO DO YOU HAVE ANY RASHES OR OPEN SORES? :NO ARE YOU ALLERGIC TO IV DYE? :NO ARE YOU DIABETIC? :NO ANY NEW PROBLEMS WITH YOUR MEDICATIONS? :NO HAVE YOU RECEIVED A VACCINE IN THE PAST 30 DAYS? :NO DO YOU PLAN TO RECEIVE A VACCINE IN THE NEXT 21 DAYS? :NO DO YOU TAKE ANY IMMUNOSUPPRESSIVE MEDICATIONS? :NO ANY HISTORY OF SEIZURES? :NO ANY HISTORY OF CARDIAC ISSUES OR EVENTS? :NO DO YOU HAVE SLEEP APNEA? :NO ANY RECENT HEAD INJURY? :NO DO YOU HAVE ANY NEW INFECTIONS? :NO IS THERE A CHANCE YOU COULD BE ? :NO ARE YOU BREAST FEEDING? :NO WHEN DID YOU LAST EAT? : 03/15/20 PM WHEN DID YOU LAST DRINK? : 03/16/20 12P SIPS OF WATER WHAT DID YOU LAST DRINK? : WATER NAME OF PERSON DRIVING YOU HOME? : LORRAINE DO YOU HAVE ANY OTHER QUESTIONS OR CONCERNS? : NO CURRENT MEDICATIONS TAKING AMLODIPINE BESYLATE 5 MG TABLET 1 TABLET ORALLY ONCE A DAY, NOTES: 03/15/20 1900 TAKING APPLE CIDER VINEGAR 500 MG TABLET DIRECTED ORALLY , NOTES: 03/16/20 0500 TAKING OMEPRAZOLE 20 MG CAPSULE DELAYED RELEASE 1 CAPSULE ORALLY ONCE DAILY, NOTES: 03/15/20 1800 TAKING TIZANIDINE HCL 4 MG TABLET 1 TABLET NEEDED ORALLY QHS PRN FOR SPASMS AND PAIN MAY REPEAT IN 5 HRS MDD2, NOTES: 03/13/20 TAKING OXYCODONE HCL 5 MG TABLET 1 TABLET NEEDED ORALLY FOR PAIN EVERY 6 HOURS NEEDED, NOTES: 03/16/20 0930 NOT-TAKING CO Q 10 10 MG CAPSULE 1 CAPSULE WITH A MEAL ORALLY ONCE A DAY NOT-TAKING VITAMIN D 50 MCG (1999 UT) TABLET 1 TABLET ORALLY ONCE A DAY MEDICATION LIST REVIEWED AND RECONCILED WITH THE PATIENT PAST MEDICAL HISTORY CHRONIC BACK AND NECK PAIN GERD HTN ALLERGIES ENVIRONMENTAL: HAY FEVER - ALLERGY SURGICAL HISTORY 4 BACK SURGERY 2010 CERVICLE SURGERY 2011 CHOLECYSECTOMY 1994 LEFT ANKLE FX WITH PLATE 2019 FAMILY HISTORY FATHER: , DIAGNOSED WITH OTHER MALIGNANT NEOPLASM OF UNSPECIFIED SITE MOTHER: , HYPERTENSION 4 BROTHER(S) , 1 SISTER(S) . 1 SON(S) , 1 DAUGHTER(S) - HEALTHY. SOCIAL HISTORY GENERAL: TOBACCO USE ARE YOU A:CURRENT SMOKER ARE YOU INTERESTED IN QUITTING?NOT READY TO QUIT COUNSELED THE PATIENT ON SMOKING EFFECTS, EDUCATION [id number]/2020 PATIENT COUNSELED ON THE DANGERS OF TOBACCO USE AND URGED TO QUIT:03/16/2020 SMOKING CESSATION INFORMATION GIVEN03/16/2020 LATEX QUESTIONNAIRE LATEX ALLERGY : HAVE YOU EVER DEVELOPED ANY TYPE OF REACTION AFTER HANDLING LATEX PRODUCTS SUCH RUBBER GLOVES, CONDOMS, DIAPHRAGMS, BALLOONS, SOCKS, OR UNDERWEAR?NO LATEX ALLERGY : HAVE YOU EVER DEVELOPED ANY TYPE OF REACTION DURING OR AFTER DENTAL APPOINTMENT, VAGINAL/RECTAL EXAMINATION, SURGICAL PROCEDURE, OR ANY OTHER EXPOSURE?NO LATEX RISK : HAVE YOU EVER HAD ANY DIFFICULTY BREATHING OR HIVES AFTER EATING OR HANDLING ANY FRUITS, OR VEGETABLES; SUCH KIWI, BANANAS, STONE FRUITS, OR CHESTNUTSNO LATEX RISK : DO YOU HAVE A PREVIOUS PERSONAL HISTORY OF MORE THAN NINE SURGERIES, SPINA BIFIDA, OR REPEATED CATHERIZATIONS? NO LATEX RISK : ARE YOU FREQUENTLY EXPOSED TO LATEX PRODUCTS IN YOUR OCCUPATION?NO DATE ASKED : 03/16/2020 ALCOHOL SCREENING DID YOU HAVE A DRINK CONTAINING ALCOHOL IN THE PAST YEAR?YES HOW OFTEN DID YOU HAVE SIX OR MORE DRINKS ON ONE OCCASION IN THE PAST YEAR?LESS THAN MONTHLY (1 POINT) HOW OFTEN DID YOU HAVE A DRINK CONTAINING ALCOHOL IN THE PAST YEAR?TWO TO FOUR TIMES A MONTH (2 POINTS) POINTS3 INTERPRETATIONNEGATIVE RECREATIONAL DRUG USE DRUG USE?NO CAFFEINE CAFFEINE USE?YES HOW OFTEN AND HOW MUCH? 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 DIET: REGULAR. EXERCISE: NO REGULAR EXERCISE, DAILY JOB DUTIES. MARITAL STATUS: SINGLE. OTHERS AT HOME: LIVES WITH OTHERS. PAIN CLINIC PFS, CLERGY, PUBLIC HEALTH REFERRALS PFS REFERRAL NEEDED?NO CLERGY REFERRAL NEEDED?NO PUBLIC HEALTH REFERRAL NEEDED?NO WAS THE PROVIDER NOTIFIED OF ANY PERTINENT INFO?YES HAS THE PATIENT BEEN EDUCATED REGARDING HIS/HER PLAN OF CARE?YES HAS THE PATIENT BEEN EDUCATED REGARDING PAIN, THE RISK FOR PAIN, THE IMPORTANCE OF EFFECTIVE PAIN MANAGEMENT, AND THE PAIN ASSESSMENT PROCESS?YES ADVANCE DIRECTIVE ADVANCE DIRECTIVE DISCUSSED WITH PATIENT:YES DECLINED HCP INFORMATION AND ASSISTANCE AT THIS TIME HOSPITALIZATION/MAJOR DIAGNOSTIC PROCEDURE PANCREATITIS SURGERY RELATED VITAL SIGNS WT 187 LBS, HT 69 IN, BMI 27.61 INDEX, BP 140/85 MM HG, HR 51 /MIN, RR 16 /MIN, TEMP 97.4 F, OXYGEN SAT % 95%, SAFE IN ENV? (Y/N) YES, NA INITIALS SC 14:34, REVIEWED BY: MT. EXAMINATION GENERAL EXAMINATION: THE PATIENT IS ALERT, ORIENTED TIMES THREE AND COOPERATIVE. HEART SHOWS REGULAR RHYTHM, NO MURMURS AND NO GALLOPS. LUNGS ARE CLEAR TO AUSCULTATION. ASSESSMENTS SPONDYLOSIS WITHOUT MYELOPATHY OR RADICULOPATHY, LUMBAR REGION - M47.816 (PRIMARY) SPONDYLOSIS OF LUMBOSACRAL REGION WITHOUT MYELOPATHY OR RADICULOPATHY - M47.817 TREATMENT SPONDYLOSIS WITHOUT MYELOPATHY OR RADICULOPATHY, LUMBAR REGION [facility] FACET BLOCK (PAIN)[id number] MEDICATION: VALIUM TAB 10MG ORALLY (DIAZEPAM)HERMINIA HAJI RN 03/16/2020 4:08:13 PM > VERIFIED FIDEL JONES 03/16/2020 5:31:04 PM > FIDEL JONES 03/16/2020 4:08:59 PM > LOT: [id number] EXP: 10/24, ADMINISTERED THIS PROCEDURE WAS REVIEWED BY FIDEL JONES ON 03/18/2020 AT 16:35 PM EDT MEDICATION: OXYCODONE HCL TAB 10MG ORALLYHERMINIA HAJI RN 03/16/2020 4:08:34 PM > VERIFIED FIDEL JONES 03/16/2020 5:31:21 PM > FIDEL JONES 03/16/2020 4:09:41 PM > LOT# [id number] EXP: 10/2021 THIS PROCEDURE WAS REVIEWED BY FIDEL JONES ON 03/18/2020 AT 16:35 PM EDT PROCEDURES PAIN NURSING RECORD PRE-PROCEDURE IV SITE N/A PROCEDURE IN ROOM 1633 , PHYSICIAN IN ROOM 1652, START 1659 , FINISH 1708, PHYSICIAN OUT OF ROOM 1710, OUT OF ROOM 1717, STEROID KENALOG, O2 RA, ECG OTHER SB, PATIENT SHIELDED YES, SAFETY STRAP YES, PREP CHLOROPREP Ignacio GRANGER RN AND Segundo BULLARD MD, IV INFUSED N/A, DRESSING TEGADERM LOC: 1. ALERT, ORIENTED, FIDEL JONES 03/16/2020 4:40:06 PM > RESP: 1. REGULAR, NO DYSPNEA, FIDEL JONES 03/16/2020 4:40:09 PM > COLOR: 1. PINK, FIDEL JONES 03/16/2020 4:40:11 PM > SKIN: 1. WARM, DRY, FIDEL JONES 03/16/2020 4:40:15 PM > POSITION: 1. PRONE, FIDEL JONES 03/16/2020 4:40:18 PM > VITALS: FIDEL JONES 03/16/2020 4:38:08 PM > 139/82, 44 SB, 16, 98% RA, , FIDEL JONES 03/16/2020 5:00 PM > 143/90, 52 SB, 16, 98% RA KARENFIDEL 03/16/2020 5:07:06 PM > 150/92, 48 SB, 16, 94% RA FIDEL JONES 03/16/2020 5:20:33 PM > (POST PROCEDURE) RIGHT ARM SITTING 144/96, 56, 16, 98% RA LUNA JONESISSA 03/16/2020 5:24:14 PM > (POST PROCEDURAL) STANDING 155/97, 52, 16, 98% NOTES BOTTOM CEMENTER OBSERVED HYPOPIGMENTATION FROM SPOT OF ELECTRODE PLACEMENT, PATIENT DENIES ANY PAIN OR ITCHING. DISCHARGE: POST PAIN 09/12, DRESSING SITE DRY AND INTACT, IV N/A, GAIT STEADY, TEACHING COMPLETED, PATIENT ACKNOWLEDGES UNDERSTANDING YES PN WORKMANS' COMP OPINION IN YOUR OPINION, WAS THE INCIDENT THAT THE PATIENT DESCRIBED THE COMPETENT MEDICAL CAUSE OF THIS INJURY/ILLNESS? YES ARE THE PATIENT'S COMPLAINTS CONSISTENT WITH HIS/HER HISTORY OF THE INJURY/ILLNESS? YES IS THE PATIENT'S HISTORY OF THE INJURY/ILLNESS CONSISTENT WITH YOUR OBJECTIVE FINDING? YES WHAT IS THE PERCENTAGE OF TEMPORARY IMPAIRMENT? MODERATE TO MARKED = 66.7% . IS THE PATIENT WORKING? YES DOCTOR ON SITE: GLENN NICHOLS MD PN LUMBAR FACET BLOCK THERAPEUTIC PRE PROCEDURE DIAGNOSIS LUMBAR SPONDYLOSIS, LUMBOSACRAL SPONDYLOSIS POST PROCEDURE DIAGNOSIS LUMBAR SPONDYLOSIS, LUMBOSACRAL SPONDYLOSIS PROCEDURE BILATERAL L4-L5 AND BILATERAL L5-S1 LUMBAR FACET THERAPEUTIC BLOCK SURGEON DR. GLENN BULLARD SALES ADVISORY MANAGER NONE ANESTHESIA LOCAL PRE PROCEDURE NOTE THE PATIENT HAS A HISTORY OF CHRONIC LOW BACK PAIN. I EVALUATED THE PATIENT AND REVIEWED THE CHART. I WENT OVER THE RISKS, ALTERNATIVES, AND BENEFITS ASSOCIATED WITH THIS PROCEDURE. I DISCUSSED THAT THE USE OF STEROIDS MAY CONTRIBUTE TO IMMUNOSUPPRESSION OF THE PATIENT'S BODY AGAINST INFECTIONS SUCH COVID-19. THE PATIENT IS AWARE OF THE POTENTIAL COMPLICATIONS ASSOCIATED WITH THIS VIRUS, INCLUDING, BUT NOT LIMITED TO, . I DISCUSSED THE USE OF DEXAMETHASONE INSTEAD OF KENALOG; HOWEVER, THE PATIENT WOULD LIKE TO MOVE FORWARD WITH KENALOG. THE PATIENT WOULD LIKE TO PROCEED AND GIVES CONSENT TO PERFORM THE PROCEDURE. THE PATIENT DENIES UNEXPLAINABLE WEIGHT LOSS, FEVER, CHILLS, OR NEW CHANGES IN URINARY OR BOWEL CONTROL. THE PATIENT IS COVID-19 NEGATIVE DESCRIPTION OF PROCEDURE THE PATIENT WAS BROUGHT TO THE PROCEDURE ROOM AND PLACED IN THE PRONE POSITION. THE LUMBOSACRAL AREA WAS CLEANED WITH CHLORAPREP SOLUTION AND DRAPED ASEPTICALLY. THE PROCEDURE WAS DONE UNDER STERILE CONDITIONS. A TIMEOUT WAS PERFORMED WHERE LATERALITY AND THE SITE OF THE PROCEDURE WERE CHECKED AND CONFIRMED WITH EVERYONE IN THE ROOM. UNDER FLUOROSCOPIC GUIDANCE, THE TARGET POINT WAS SELECTED AT THE RIGHT AND LEFT L4-L5 AND RIGHT AND LEFT L5-S1 FACET JOINTS. TARGET POINT WAS SELECTED AFTER LATERAL ROTATION AND TILT OF THE MAGNIFIER OF THE C-ARM. LIDOCAINE 0.5% WAS USED TO NUMB THE SKIN AND THE SUBCUTANEOUS TISSUE BELOW IT. SPINAL NEEDLES, 22-GAUGE, WERE ADVANCED UNDER FLUOROSCOPIC GUIDANCE AND FOLLOWING PATIENT FEEDBACK UNTIL THE TARGETS WERE TOUCHED. THE POSITION OF THE NEEDLES WAS VERIFIED WITH AP AND LATERAL VIEWS. AFTER PROPER POSITION OF THE NEEDLES WAS ACHIEVED, ISOVUE-M DYE 30%, 0.1 ML, WAS INJECTED SHOWING ADEQUATE SPREAD OF THE DYE. KENALOG 20 MG WAS INJECTED AT EACH SITE. THEN, A SOLUTION OF 1.0 ML OF BUPIVACAINE 0.125% OF WAS USED TO FLUSH EACH SITE. THE MEDICATION WAS VERIFIED WITH THE NURSE. THERE WAS NO EVIDENCE OF BLOOD, PARESTHESIA OR CEREBROSPINAL FLUID DURING THE PROCEDURE. THE PATIENT WAS SENT TO THE RECOVERY ROOM. THE PATIENT WAS MOVING THE EXTREMITIES AND DOING WELL. THERE WERE NO COMPLICATIONS DURING THE PROCEDURE. ESTIMATED BLOOD LOSS WAS LESS THAN 5 ML. FLUOROSCOPY TIME WAS 59 SECONDS POST PROCEDURE NOTE THE PATIENT WILL BE SEEN IN A FOLLOW UP IN THE NEXT FEW WEEKS. I AM LOOKING FOR LONG LASTING RELIEF FOR THE PATIENT WITH THIS INTERVENTION. INSTRUCTIONS WERE GIVEN, QUESTIONS WERE ANSWERED, AND THE PATIENT EXPRESSED UNDERSTANDING AND AGREES WITH THE PLAN. THE PATIENT IS AWARE TO STAY HOME FOR THE NEXT WEEK, IF POSSIBLE, DUE TO COVID-19. I, ALLEN FABIAN, DOCUMENTED THE ABOVE INFORMATION ACTING A SCRIBE FOR DR. BULLARD. I HAVE REVIEWED THE ABOVE DOCUMENT, WRITTEN BY ALLEN FABIAN, RECRUITMENT COORDINATOR, AND I VERIFY THAT IT IS ACCURATE PROCEDURE CODES 29085 INJ PARAVERT F JNT L/S 1 LEV, MODIFIERS: 50 [id number] INJ PARAVERT F JNT L/S 2 LEV, MODIFIERS: 50 DISPOSITION & COMMUNICATION FOLLOW UP F/UP WITH OUTSIDE MEDICAL SALES REPRESENTATIVE (REASON: W/C POST LFBT SYED L4-L5, L5-S1) ELECTRONICALLY SIGNED BY GLENN BULLARD MD, MD ON 03/18/2020 AT 12:26 PM EDT DISCLAIMER : THIS IS A VISIT SUMMARY EXTRACTED FROM THE [employer] CHART. IT IS NOT A COPY OF THE [employer] PROGRESS NOTE. RACHEL
== END ==
LOC: M PAIN 13:45
PROVIDERS: ATTEND Anesthesiology
DX: M47.816 Spondylosis without myelopathy or radiculopathy, lumbar region (principal); M47.817 Spondylosis without myelopathy or radiculopathy, lumbosacral region
CPT/HCPCS: 64493; 64494; J3301; Q9967

== ENCOUNTER 2020-05-25 12:30 | Emergency (ER) | payer OTHER ==
[~2020-05-25] VITALS: Ht 172.7 cm; Wt 86.7 kg
[~2020-05-25 12:30] MED LIST changes: -AMLO10TA PO; -ASPI81TA86 PO; -BUPIVACAINE HCL 0.25% 30ML VIAL As Ordered ONE; -ISOVUE-M 300 61% 15ML VIAL As Ordered ONE; -LIDOCAINE 1% SDV 30ML VIAL As Ordered ONE; -OXYC-517 PO; -PANT40TA29 PO; -TIZA4TAB4 PO; -TRIAMCINOLONE ACETONIDE SUSP 40 MG/ML VIAL (J3301) As Ordered ONE; -acid reflux med; -diazePAM 5 MG TAB As Ordered ONE; -oxyCODONE 5MG TAB As Ordered ONE
[2020-05-25] MEDS ORDERED: AMLO10TA PO (12:47)
[2020-05-25] MEDS ORDERED: acid reflux med (12:47)
[2020-05-25] MEDS ORDERED: OXYC-517 PO (12:47)
--- NOTE | 2020-05-25 13:04 | ECGEPIP ---
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
[2020-05-25 13:19] LABS: BASO # 0.1 10^3/uL (0.0-0.2); EOS # 0.3 10^3/uL (0.0-0.5); EOS % 4.4 % (0.0-3.0); HEMATOCRIT 42.5 % (42.0-52.0); HEMOGLOBIN 14.5 g/dl (13.5-17.5); LYMPH # 2.3 10^3/uL (1.5-5.0); LYMPH % 33.8 % (24.0-44.0); MEAN CORPUSCULAR HEMOGLOBIN 30.3 pg (27.0-33.0); MEAN CORPUSCULAR HGB CONC 34.1 g/dl (32.0-36.5); MEAN CORPUSCULAR VOLUME 88.9 fl (80.0-96.0); MONO # 0.6 10^3/uL (0.0-0.8); NEUTROPHILS # 3.5 10^3/uL (1.5-8.5); NEUTROPHILS % 51.5 % (36.0-66.0); PLATELET COUNT, AUTOMATED 274 10^3/uL (150-450); RED BLOOD COUNT 4.78 10^6/uL (4.30-6.10); WHITE BLOOD COUNT 6.9 10^3/uL (4.0-10.0)
[2020-05-25 14:00] LABS: ERYTHROCYTE SEDIMENTATION RATE 3 mm/hr (0-20)
[2020-05-25 14:31] LABS: ALBUMIN 3.7 GM/DL (3.2-5.2); ALT/SGPT 96 U/L (12-78); BILIRUBIN,TOTAL 1.2 MG/DL (0.2-1.0); BLOOD UREA NITROGEN 15 MG/DL (7-18); CALCIUM LEVEL 9.3 MG/DL (8.5-10.1); CARBON DIOXIDE LEVEL 26 MEQ/L (21-32); CHLORIDE LEVEL 109 MEQ/L (98-107); CREATININE FOR GFR 0.96 MG/DL (0.70-1.30); GLOMERULAR FILTRATION RATE > 60.0 (>56); GLUCOSE, FASTING 111 MG/DL (70-100); LIPASE 90 U/L (73-393); POTASSIUM SERUM 4.1 MEQ/L (3.5-5.1); SODIUM LEVEL 140 MEQ/L (136-145); TOTAL PROTEIN 7.1 GM/DL (6.4-8.2)
[2020-05-25] MEDS ORDERED: TIZA4TAB4 PO (15:37)
[2020-05-25] MEDS ORDERED: PANT40TA29 PO (15:37)
[2020-05-25] MEDS ORDERED: ASPI81TA86 PO (17:36)
[2020-05-25] MEDS ORDERED: ASPIRIN 81 MG CHEW TABLET PO ONE (17:45)
[2020-05-25 18:30] VITALS: BP 158/99
--- NOTE | 2020-05-26 08:24 | ECGEPIP ---
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
== END 2020-05-25 18:56 | disposition home or self-care (01) ==
LOC: M ED 12:30
DX: R07.9 Chest pain, unspecified (principal); R00.1 Bradycardia, unspecified; I10 Essential (primary) hypertension; K21.9 Gastro-esophageal reflux disease without esophagitis; G89.29 Other chronic pain; M54.2 Cervicalgia; M54.9 Dorsalgia, unspecified; F17.200 Nicotine dependence, unspecified, uncomplicated; J30.2 Other seasonal allergic rhinitis; Z79.82 Long term (current) use of aspirin; Z79.899 Other long term (current) drug therapy

== ENCOUNTER → 2020-08-12 | Outpatient (CLI) | payer OTHER ==
[~2020-08-12] MED LIST changes: +AMLO10TA PO; +ASPI81TA86 PO; +OXYC-517 PO; +PANT40TA29 PO; +TIZA4TAB4 PO; +acid reflux med
--- NOTE | 2020-08-13 23:19 | ECWPNPC ---
PATIENT NAME: JASON VILLAFUERTE : 1960 GENDER: MALE VISIT DATE: 08/12/2020 DISCHARGE DATE: 08/12/20 1038 VISIT LOCKED DATE TIME: PHYSICIAN: ZOYA RODRIGUEZ RESOURCE: ZOYA RODRIGUEZ REASON FOR APPOINTMENT 1. W/C LOW BACK HISTORY OF PRESENT ILLNESS GENERAL: 59-YEAR-OLD MALE IN FOR WORKER'Yun Yun COMP. CHRONIC PAIN FOLLOW-UP. HE FEELS MEDICATIONS ARE WORKING WELL AND DENIES MED SIDE EFFECTS AT THIS TIME. HE RATES HIS PAIN CURRENTLY AT A 2 OUT OF 10 AND DESCRIBES IT ACHING, THROBBING, AND SHOOTING. 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 THE PATIENT SAYS THAT HIS PAIN IS MAINLY LOCATED ON THE LEFT SIDE OF HIS LOW BACK AND RADIATES DOWN BOTH OF HIS LEGS. THE PATIENT IS CURRENTLY USING OXYCODONE TO AID IN PAIN RELIEF AND SAYS THAT THE USE OF THE MEDICATION HELPS HIM REMAIN MOBILE AND FUNCTIONAL, BUT HE STILL HAS SOME PAIN. FALL RISK SCREENING: SCREENING :NO FALLS REPORTED IN THE LAST YEAR PAIN SCREENING: PATIENT HAS A COMPLAINT OF ACUTE OR CHRONIC PAIN :YES LOCATION OF PAIN:LOW BACK INTENSITY OF PAIN (SCALE OF 1 TO 10):2 WHAT DOES YOUR PAIN FEEL LIKE:ACHING, THROBBING, SHOOTING DURATION:CONTINOUS, CONSTANT PAIN IS INCREASED BY:ACTIVITIES, PROLONGED STANDING PAIN IS DECREASED BY:USE OF PAIN MEDICATIONS TREATMENT/MEDICATIONS USED TO MANAGE PAIN:OPIOIDS LEVEL OF RELIEF FROM PAIN TREATMENTS IN THE PAST:100% PAIN HAS INTERFERED WITH THE FOLLOWING:BATHING/DRESSING, WALKING ABILITY, HOUSEWORK, SLEEP, TRANSPORTATION, TOILETING NURSING NOTE: -. PAIN CENTER INTAKE QUESTIONS: DO YOU HAVE A HISTORY OF MRSA? :NO DO YOU TAKE A BLOOD THINNERS? :NO DO YOU HAVE ANY BLEEDING DISORDERS? :NO ANY NEW NUMBNESS OR WEAKNESS IN YOUR LEGS OR ARMS? :NO ANY PACEMAKER,DEFIBRILLATOR, OR DORSAL COLUMN STIMULATOR? :NO DO YOU HAVE ANY RASHES OR OPEN SORES? :NO ARE YOU ALLERGIC TO IV DYE? :NO ARE YOU DIABETIC? :NO ANY NEW PROBLEMS WITH YOUR MEDICATIONS? :NO HAVE YOU RECEIVED A VACCINE IN THE PAST 30 DAYS? :NO DO YOU PLAN TO RECEIVE A VACCINE IN THE NEXT 21 DAYS? :NO DO YOU NEED ANY PRESCRIPTION? :YES TIZANIDINE DO YOU TAKE ANY IMMUNOSUPPRESSIVE MEDICATIONS? :NO IS THERE A CHANCE YOU COULD BE ? :NO ARE YOU BREAST FEEDING? :NO CURRENT MEDICATIONS TAKING AMLODIPINE BESYLATE 5 MG TABLET 1 TABLET ORALLY ONCE A DAY TAKING APPLE CIDER VINEGAR 500 MG TABLET DIRECTED ORALLY TAKING TIZANIDINE HCL 4 MG TABLET 1 TABLET NEEDED ORALLY QHS PRN FOR SPASMS AND PAIN MAY REPEAT IN 5 HRS MDD2 TAKING OXYCODONE HCL 5 MG TABLET 1 TABLET NEEDED ORALLY FOR PAIN EVERY 6 HOURS NEEDED NOT-TAKING OMEPRAZOLE 20 MG CAPSULE DELAYED RELEASE 1 CAPSULE ORALLY ONCE DAILY NOT-TAKING CO Q 10 10 MG CAPSULE 1 CAPSULE WITH A MEAL ORALLY ONCE A DAY NOT-TAKING VITAMIN D 50 MCG (1999) TABLET 1 TABLET ORALLY ONCE A DAY MEDICATION LIST REVIEWED AND RECONCILED WITH THE PATIENT PAST MEDICAL HISTORY CHRONIC BACK AND NECK PAIN GERD HTN ALLERGIES ENVIRONMENTAL: HAY FEVER - ALLERGY SURGICAL HISTORY 4 BACK SURGERY 2010 CERVICLE SURGERY 2011 CHOLECYSECTOMY 1994 LEFT ANKLE FX WITH PLATE 2019 FAMILY HISTORY FATHER: , DIAGNOSED WITH OTHER MALIGNANT NEOPLASM OF UNSPECIFIED SITE MOTHER: , HYPERTENSION 4 BROTHER(S) , 1 SISTER(S) . 1 SON(S) , 1 DAUGHTER(S) - HEALTHY. SOCIAL HISTORY GENERAL: TOBACCO USE ARE YOU A:CURRENT SMOKER ARE YOU INTERESTED IN QUITTING?NOT READY TO QUIT COUNSELED THE PATIENT ON SMOKING EFFECTS, EDUCATION [id number]/10/2020 PATIENT COUNSELED ON THE DANGERS OF TOBACCO USE AND URGED TO QUIT:03/16/2020 SMOKING CESSATION INFORMATION GIVEN03/16/2020 LATEX QUESTIONNAIRE LATEX ALLERGY : HAVE YOU EVER DEVELOPED ANY TYPE OF REACTION AFTER HANDLING LATEX PRODUCTS SUCH RUBBER GLOVES, CONDOMS, DIAPHRAGMS, BALLOONS, SOCKS, OR UNDERWEAR?NO LATEX ALLERGY : HAVE YOU EVER DEVELOPED ANY TYPE OF REACTION DURING OR AFTER DENTAL APPOINTMENT, VAGINAL/RECTAL EXAMINATION, SURGICAL PROCEDURE, OR ANY OTHER EXPOSURE?NO DATE ASKED : 03/16/2020 LATEX RISK : HAVE YOU EVER HAD ANY DIFFICULTY BREATHING OR HIVES AFTER EATING OR HANDLING ANY FRUITS, OR VEGETABLES; SUCH KIWI, BANANAS, STONE FRUITS, OR CHESTNUTSNO LATEX RISK : DO YOU HAVE A PREVIOUS PERSONAL HISTORY OF MORE THAN NINE SURGERIES, SPINA BIFIDA, OR REPEATED CATHERIZATIONS? NO LATEX RISK : ARE YOU FREQUENTLY EXPOSED TO LATEX PRODUCTS IN YOUR OCCUPATION?NO ALCOHOL SCREENING DID YOU HAVE A DRINK CONTAINING ALCOHOL IN THE PAST YEAR?YES HOW OFTEN DID YOU HAVE SIX OR MORE DRINKS ON ONE OCCASION IN THE PAST YEAR?LESS THAN MONTHLY (1 POINT) HOW OFTEN DID YOU HAVE A DRINK CONTAINING ALCOHOL IN THE PAST YEAR?TWO TO FOUR TIMES A MONTH (2 POINTS) POINTS3 INTERPRETATIONNEGATIVE RECREATIONAL DRUG USE DRUG USE?NO CAFFEINE CAFFEINE USE?YES HOW OFTEN AND HOW MUCH? 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 EXERCISE: NO REGULAR EXERCISE, DAILY JOB DUTIES. MARITAL STATUS: SINGLE. OTHERS AT HOME: LIVES WITH OTHERS. PAIN CLINIC PFS, CLERGY, PUBLIC HEALTH REFERRALS PFS REFERRAL NEEDED?NO CLERGY REFERRAL NEEDED?NO PUBLIC HEALTH REFERRAL NEEDED?NO WAS THE PROVIDER NOTIFIED OF ANY PERTINENT INFO?YES HAS THE PATIENT BEEN EDUCATED REGARDING HIS/HER PLAN OF CARE?YES HAS THE PATIENT BEEN EDUCATED REGARDING PAIN, THE RISK FOR PAIN, THE IMPORTANCE OF EFFECTIVE PAIN MANAGEMENT, AND THE PAIN ASSESSMENT PROCESS?YES ADVANCE DIRECTIVE ADVANCE DIRECTIVE DISCUSSED WITH PATIENT:YES DECLINED HCP INFORMATION AND ASSISTANCE AT THIS TIME HOSPITALIZATION/MAJOR DIAGNOSTIC PROCEDURE PANCREATITIS SURGERY RELATED REVIEW OF SYSTEMS CONSTITUTIONAL: ANY RECENT FEVER NO . CHILLS NO . WEIGHT CHANGE OF UNKNOWN REASONS NO . GASTROENTEROLOGY: NEW UNEXPLAINABLE CHANGES IN BOWEL CONTROL NO . CONSTIPATION NO . GENITOURINARY: ANY NEW CHANGE IN BLADDER CONTROL? NO . NEUROLOGY: NEW ONSET DIZZINESS OR NEUROLOGICAL CHANGES NOT MENTIONED NO . NEW NUMBNESS OR PAIN PATTERNS NOT MENTIONED AND PERTINENT TO TODAY'S VISIT NO . CARDIOLOGY: NEW CHEST PRESSURE NO . NEW CHEST PAIN NO . RESPIRATORY: UNEXPLAINABLE COUGH NO . NEW SHORTNESS OF BREATH NO . VITAL SIGNS WT 187 LBS, HT 69 IN, BMI 27.61 INDEX, BP 151/84 MM HG, HR 62 /MIN, RR 18 /MIN, TEMP 97.0 F, OXYGEN SAT % 97%, NA INITIALS SC 10:11. EXAMINATION GENERAL EXAMINATION: GENERALNO ACUTE DISTRESS, WELL NOURISHED AND HYDRATED. PSYCHAPPROPRIATE MOOD AND AFFECT . LUNGS:CLEAR TO AUSCULTATION BILATERALLY, NO WHEEZES, RHONCHI, RALES. HEART:NO MURMURS, REGULAR RATE AND RHYTHM. ASSESSMENTS OTHER CHRONIC PAIN - G89.29 (PRIMARY) SPONDYLOSIS WITHOUT MYELOPATHY OR RADICULOPATHY, LUMBOSACRAL REGION - M47.817 TREATMENT OTHER CHRONIC PAIN REFILL TIZANIDINE HCL TABLET, 4 MG, 1 TABLET NEEDED, ORALLY, QHS PRN FOR SPASMS AND PAIN MAY REPEAT IN 5 HRS MDD2, 30 DAY(S), 45, REFILLS 1 PAIN PROCEDURE LOGDATE OF PROCEDURE03/16/20PROCEDURE:LUMBAR FACET BLOCK THERAPEUTIC BILATERAL L4/5, L5/R1SJIUSV OF PRE SEDATEVALIUM 10MG, OXYCODONE 10MGRESULT:PRE-03/12 POST 0-10 CONTINUES TO HELP TODAY NOTES: 59-YEAR-OLD MALE IN FOR WORKER'S COMP. CHRONIC PAIN FOLLOW-UP. GIVEN PRESENTING SYMPTOMS RECOMMENDED CONTINUATION CURRENT MEDICATION REGIMEN WITH FOLLOW-UP IN 3 MONTHS. PATIENT HAS EXPRESSED UNDERSTANDING OF WAS IN AGREEMENT WITH TREATMENT PLAN. GIVEN TIME TO ASK QUESTIONS AND EXPRESS CONCERNS. , ISTOP REGISTRY REVIEWED AND DEMONSTRATES COMPLLIANCE. (REF # [id number] ) BRINGS IN MEDICATIONS WHICH IS APPROPRIATE FOR WHAT WAS DISPENSED. RECENT URINE TOXICOLOGY REVIEWED. NO UNAUTHORIZED MEDICATIONS. NO ILLICIT SUBSTANCES AND PRESCRIBED MEDICATIONS WERE PRESENT. PROCEDURES PN WORKMANS' COMP OPINION IN YOUR OPINION, WAS THE INCIDENT THAT THE PATIENT DESCRIBED THE COMPETENT MEDICAL CAUSE OF THIS INJURY/ILLNESS? YES ARE THE PATIENT'S COMPLAINTS CONSISTENT WITH HIS/HER HISTORY OF THE INJURY/ILLNESS? YES IS THE PATIENT'S HISTORY OF THE INJURY/ILLNESS CONSISTENT WITH YOUR OBJECTIVE FINDING? YES WHAT IS THE PERCENTAGE OF TEMPORARY IMPAIRMENT? MODERATE TO MARKED = 66.7% IS THE PATIENT WORKING? YES DOCTOR ON SITE: GLENN NICHOLS MD PROCEDURE CODES FA211 ESTABILISHED PATIENT [facility] FACILITY CHARGE DISPOSITION & COMMUNICATION FOLLOW UP 3 MONTHS (REASON: BACK PAIN) ELECTRONICALLY SIGNED BY OMID CROW ON 08/13/2020 AT 12:48 PM EST DISCLAIMER : THIS IS A VISIT SUMMARY EXTRACTED FROM THE [employer] CHART. IT IS NOT A COPY OF THE [employer] PROGRESS NOTE. RACHEL
== END ==
LOC: M PAIN 10:00
PROVIDERS: ATTEND Family Medicine
DX: G89.29 Other chronic pain (principal); M47.817 Spondylosis without myelopathy or radiculopathy, lumbosacral region; F17.200 Nicotine dependence, unspecified, uncomplicated; Z79.899 Other long term (current) drug therapy

== ENCOUNTER → 2020-09-24 | Outpatient (CLI) | payer OTHER ==
--- NOTE | 2020-09-24 08:50 | REP ---
INDICATION: FATTY LIVER, CONSTIPATION, CHRONIC PAIN COMPARISON: None. TECHNIQUE: Real time horn scale ultrasound examination using curved array transducer. FINDINGS: Liver is hyperechoic with decreased through transmission consistent with hepatosteatosis. No focal hepatic lesion identified. Pancreas is incompletely evaluated due to interposed bowel gas. Patient is noted to be status post cholecystectomy. No biliary ductal dilatation is appreciated and the common bile duct measures 5.4 mm diameter. Right kidney is normal in reniform shape without hydronephrosis and measures 11.9 x 4.9 x 5.7 cm. No ascites in the visualized right upper quadrant. IMPRESSION: Hepatosteatosis. <Electronically signed by Peter Del Castillo > 09/24/20 0899
== END ==
LOC: M RAD 07:29
PROVIDERS: ATTEND Nurse Practitioner Family
DX: K76.0 Fatty (change of) liver, not elsewhere classified (principal); K59.00 Constipation, unspecified; Z90.49 Acquired absence of other specified parts of digestive tract

== ENCOUNTER → 2020-11-03 | Outpatient (CLI) | payer OTHER ==
--- NOTE | 2020-11-09 06:33 | ECWPNPC ---
PATIENT NAME: JASON VILLAFUERTE : 1960 GENDER: MALE VISIT DATE: 11/03/2020 DISCHARGE DATE: 11/03/2052 VISIT LOCKED DATE TIME: PHYSICIAN: ZOYA RODRIGUEZ RESOURCE: ZOYA RODRIGUEZ REASON FOR APPOINTMENT 1. BACK PAIN HISTORY OF PRESENT ILLNESS DEPRESSION SCREENING: PHQ-2 (2015 EDITION) LITTLE INTEREST OR PLEASURE IN DOING THINGS?NOT AT ALL FEELING DOWN, DEPRESSED, OR HOPELESS?NOT AT ALL TOTAL SCORE0 59-YEAR-OLD MALE IN FOR CHRONIC PAIN FOLLOW-UP. HE RATES HIS PAIN CURRENTLY AT A 2 OUT OF 10 AND DESCRIBES IT ACHING, INTERMITTENT, AND THROBBING. HE FEELS MEDICATIONS ARE HELPFUL AND DENIES MED SIDE EFFECTS AT THIS TIME. GENERAL: -. FALL RISK SCREENING: SCREENING : NO FALLS REPORTED IN THE LAST YEAR. PAIN SCREENING: PATIENT HAS A COMPLAINT OF ACUTE OR CHRONIC PAIN :YES LOCATION OF PAIN:LOW BACK INTENSITY OF PAIN (SCALE OF 1 TO 10):2 WHAT DOES YOUR PAIN FEEL LIKE:ACHING, INTERMITTENT, THROBBING DURATION:INTERMITTENT MORNINGS ARE THE WORST. PAIN IS INCREASED BY:ACTIVITIES, PROLONGED STANDING, OTHERS SITTING PAIN IS DECREASED BY:OTHERS STRETCHING, PAIN MEDS NURSING NOTE: -. PAIN CENTER INTAKE QUESTIONS: DO YOU HAVE A HISTORY OF MRSA? :NO DO YOU TAKE A BLOOD THINNERS? :NO DO YOU HAVE ANY BLEEDING DISORDERS? :NO ANY NEW NUMBNESS OR WEAKNESS IN YOUR LEGS OR ARMS? :YES LEFT FOOT AND SWELLING IN LEFT ANKLE ANY PACEMAKER,DEFIBRILLATOR, OR DORSAL COLUMN STIMULATOR? :NO DO YOU HAVE ANY RASHES OR OPEN SORES? :NO ARE YOU ALLERGIC TO IV DYE? :NO ARE YOU DIABETIC? :NO ANY NEW PROBLEMS WITH YOUR MEDICATIONS? :NO HAVE YOU RECEIVED A VACCINE IN THE PAST 30 DAYS? :NO DO YOU PLAN TO RECEIVE A VACCINE IN THE NEXT 21 DAYS? :NO DO YOU NEED ANY PRESCRIPTION? :YES TIZANIDINE AND OXYCODONE DO YOU TAKE ANY IMMUNOSUPPRESSIVE MEDICATIONS? :NO DO YOU HAVE ANY KIDNEY OR LIVER DISEASE? :NO IS THERE A CHANCE YOU COULD BE ? :NO ARE YOU BREAST FEEDING? :NO CURRENT MEDICATIONS TAKING AMLODIPINE BESYLATE 5 MG TABLET 1 TABLET ORALLY ONCE A DAY TAKING APPLE CIDER VINEGAR 500 MG TABLET DIRECTED ORALLY TAKING TIZANIDINE HCL 4 MG TABLET 1 TABLET NEEDED ORALLY QHS PRN FOR SPASMS AND PAIN MAY REPEAT IN 5 HRS MDD2 TAKING OXYCODONE HCL 5 MG TABLET 1 TABLET NEEDED ORALLY FOR PAIN EVERY 6 HOURS NEEDED NOT-TAKING OMEPRAZOLE 20 MG CAPSULE DELAYED RELEASE 1 CAPSULE ORALLY ONCE DAILY NOT-TAKING CO Q 10 10 MG CAPSULE 1 CAPSULE WITH A MEAL ORALLY ONCE A DAY NOT-TAKING VITAMIN D 50 MCG (1999 UT) TABLET 1 TABLET ORALLY ONCE A DAY MEDICATION LIST REVIEWED AND RECONCILED WITH THE PATIENT PAST MEDICAL HISTORY CHRONIC BACK AND NECK PAIN GERD HTN ALLERGIES ENVIRONMENTAL: HAY FEVER - ALLERGY SOCIAL HISTORY GENERAL: TOBACCO USE ARE YOU A:CURRENT SMOKER ARE YOU INTERESTED IN QUITTING?NOT READY TO QUIT PATIENT COUNSELED ON THE DANGERS OF TOBACCO USE AND URGED TO QUIT:03/16/2020 COUNSELED THE PATIENT ON SMOKING EFFECTS, EDUCATION INDSFBSO07/10/2020 SMOKING CESSATION INFORMATION GIVEN03/16/2020 LATEX QUESTIONNAIRE LATEX ALLERGY : HAVE YOU EVER DEVELOPED ANY TYPE OF REACTION AFTER HANDLING LATEX PRODUCTS SUCH RUBBER GLOVES, CONDOMS, DIAPHRAGMS, BALLOONS, SOCKS, OR UNDERWEAR?NO LATEX ALLERGY : HAVE YOU EVER DEVELOPED ANY TYPE OF REACTION DURING OR AFTER DENTAL APPOINTMENT, VAGINAL/RECTAL EXAMINATION, SURGICAL PROCEDURE, OR ANY OTHER EXPOSURE?NO LATEX RISK : HAVE YOU EVER HAD ANY DIFFICULTY BREATHING OR HIVES AFTER EATING OR HANDLING ANY FRUITS, OR VEGETABLES; SUCH KIWI, BANANAS, STONE FRUITS, OR CHESTNUTSNO LATEX RISK : DO YOU HAVE A PREVIOUS PERSONAL HISTORY OF MORE THAN NINE SURGERIES, SPINA BIFIDA, OR REPEATED CATHERIZATIONS? NO LATEX RISK : ARE YOU FREQUENTLY EXPOSED TO LATEX PRODUCTS IN YOUR OCCUPATION?NO DATE ASKED : 11/03/2020 ALCOHOL USE: OCCASIONAL. ALCOHOL SCREENING DID YOU HAVE A DRINK CONTAINING ALCOHOL IN THE PAST YEAR?YES HOW OFTEN DID YOU HAVE SIX OR MORE DRINKS ON ONE OCCASION IN THE PAST YEAR?LESS THAN MONTHLY (1 POINT) HOW OFTEN DID YOU HAVE A DRINK CONTAINING ALCOHOL IN THE PAST YEAR?TWO TO FOUR TIMES A MONTH (2 POINTS) POINTS3 INTERPRETATIONNEGATIVE RECREATIONAL DRUG USE DRUG USE?NO CAFFEINE CAFFEINE USE?YES HOW OFTEN AND HOW MUCH? 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 DIET: REGULAR. EXERCISE: NO REGULAR EXERCISE, DAILY JOB DUTIES. MARITAL STATUS: SINGLE. OTHERS AT HOME: LIVES WITH OTHERS. - PFS REFERRAL NEEDED?NO CLERGY REFERRAL NEEDED?NO PUBLIC HEALTH REFERRAL NEEDED?NO WAS THE PROVIDER NOTIFIED OF ANY PERTINENT INFO?YES HAS THE PATIENT BEEN EDUCATED REGARDING HIS/HER PLAN OF CARE?YES HAS THE PATIENT BEEN EDUCATED REGARDING PAIN, THE RISK FOR PAIN, THE IMPORTANCE OF EFFECTIVE PAIN MANAGEMENT, AND THE PAIN ASSESSMENT PROCESS?YES ADVANCE DIRECTIVE ADVANCE DIRECTIVE DISCUSSED WITH PATIENT:YES DECLINED HCP INFORMATION AND ASSISTANCE AT THIS TIME REVIEW OF SYSTEMS CONSTITUTIONAL: ANY RECENT FEVER NO . CHILLS NO . WEIGHT CHANGE OF UNKNOWN REASONS NO . GASTROENTEROLOGY: NEW UNEXPLAINABLE CHANGES IN BOWEL CONTROL NO . CONSTIPATION NO . GENITOURINARY: ANY NEW CHANGE IN BLADDER CONTROL? NO . NEUROLOGY: NEW ONSET DIZZINESS OR NEUROLOGICAL CHANGES NOT MENTIONED NO . NEW NUMBNESS OR PAIN PATTERNS NOT MENTIONED AND PERTINENT TO TODAY'S VISIT NO . CARDIOLOGY: NEW CHEST PRESSURE NO . PATIENT DENIES NO . RESPIRATORY: UNEXPLAINABLE COUGH NO . NEW SHORTNESS OF BREATH NO . VITAL SIGNS WT 201.4 LBS, HT 69 IN, BMI 29.74 INDEX, BP 152/90 MM HG, HR 68 /MIN, RR 18 /MIN, TEMP 98.6 F, OXYGEN SAT % 95%, NA INITIALS SC 09:46. EXAMINATION GENERAL EXAMINATION: GENERALNO ACUTE DISTRESS, WELL NOURISHED AND HYDRATED. PSYCHAPPROPRIATE MOOD AND AFFECT . LUNGS:CLEAR TO AUSCULTATION BILATERALLY, NO WHEEZES, RHONCHI, RALES. HEART:NO MURMURS, REGULAR RATE AND RHYTHM. ASSESSMENTS SPONDYLOSIS OF LUMBOSACRAL REGION WITHOUT MYELOPATHY OR RADICULOPATHY - M47.817 TREATMENT SPONDYLOSIS OF LUMBOSACRAL REGION WITHOUT MYELOPATHY OR RADICULOPATHY NOTES: 59-YEAR-OLD MALE IN FOR CHRONIC PAIN FOLLOW-UP. GIVEN PRESENTING SYMPTOMS RECOMMENDED CONTINUATION OF CURRENT MEDICATION REGIMEN WITH FOLLOW-UP IN 3 MONTHS. PATIENT HAS EXPRESSED UNDERSTANDING OF AND WAS IN AGREEMENT WITH TREATMENT PLAN. GIVEN TIME TO ASK QUESTIONS AND EXPRESS CONCERNS. , ISTOP REGISTRY REVIEWED AND DEMONSTRATES COMPLLIANCE. (REF # [id number] ) BRINGS IN MEDICATIONS WHICH IS APPROPRIATE FOR WHAT WAS DISPENSED. RECENT URINE TOXICOLOGY REVIEWED. NO UNAUTHORIZED MEDICATIONS. NO ILLICIT SUBSTANCES AND PRESCRIBED MEDICATIONS WERE PRESENT. PROCEDURE CODES FA211 ESTABILISHED PATIENT [facility] CHARGE DISPOSITION & COMMUNICATION FOLLOW UP 3 MONTHS (REASON: BACK PAIN ) ELECTRONICALLY SIGNED BY OMID CROW ON 11/08/2020 AT 07:26 AM EST DISCLAIMER : THIS IS A VISIT SUMMARY EXTRACTED FROM THE [employer] CHART. IT IS NOT A COPY OF THE [employer] PROGRESS NOTE. RACHEL
== END ==
LOC: M PAIN 09:30
PROVIDERS: ATTEND Family Medicine
DX: M47.817 Spondylosis without myelopathy or radiculopathy, lumbosacral region (principal); K21.9 Gastro-esophageal reflux disease without esophagitis; I10 Essential (primary) hypertension; J30.1 Allergic rhinitis due to pollen; F17.210 Nicotine dependence, cigarettes, uncomplicated; Z79.891 Long term (current) use of opiate analgesic; Z79.899 Other long term (current) drug therapy

== ENCOUNTER → 2020-12-27 | Outpatient (CLI) | payer OTHER ==
[~2020-12-27] MED LIST changes: +E-Z-GAS II EFFERVESCENT PACKET (SODIUM BICARB./CITRIC ACID/SIMETHICONE) As Ordered ONE; +E-Z-HD 98% w/w 340GM SUSP BTL As Ordered ONE; +E-Z-PAQUE 96% w/w SUSP 176GM BTL As Ordered ONE
--- NOTE | 2020-12-27 14:17 | REP ---
INDICATION: GERD,DYSPHAGIA. COMPARISON: None. TECHNIQUE: This procedure was performed under the direct supervision of Dr. Bueno. Images were reviewed with Dr. Bueno. Liquid barium and gas producing granules were given in the erect position as well as liquid barium in the prone oblique positions in order to perform a double contrast esophagram examination. A combination of fluoroscopy, spot films and last image hold technology was utilized. 0.8 minutes of fluoro time was utilized for this procedure. FINDINGS: A single view PA chest x-ray is submitted as a food and beverage associate film. The superior mediastinal structures are midline. The heart size is within normal limits. The lungs are clear. The oral and pharyngeal stages of deglutition are unremarkable. Esophageal transport is prompt and efficient and there is no esophagitis, stricture, mucosal ring, or hiatal hernia.There is gastroesophageal reflux demonstrated to the level of the thoracic inlet. IMPRESSION: There is gastroesophageal reflux demonstrated to the level of the thoracic inlet. <Electronically signed by Saleem Ayala > 12/27/20 1401 <Electronically signed by Dheeraj Bueno > 12/27/20 1410
== END ==
LOC: M RAD 08:32
PROVIDERS: ATTEND Physician Assistant Medical
DX: K21.9 Gastro-esophageal reflux disease without esophagitis (principal); R13.10 Dysphagia, unspecified

== ENCOUNTER → 2021-01-09 | Outpatient (CLI) | payer OTHER ==
[~2021-01-09] MED LIST changes: -E-Z-GAS II EFFERVESCENT PACKET (SODIUM BICARB./CITRIC ACID/SIMETHICONE) As Ordered ONE; -E-Z-HD 98% w/w 340GM SUSP BTL As Ordered ONE; -E-Z-PAQUE 96% w/w SUSP 176GM BTL As Ordered ONE
== END ==
LOC: M LABSMTC 10:05
PROVIDERS: ATTEND Anesthesiology
DX: Z01.812 Encounter for preprocedural laboratory examination (principal); Z20.822 Contact with and (suspected) exposure to COVID-19

== ENCOUNTER 2021-01-14 11:22 | Day surgery (SDC) | payer OTHER ==
[~2021-01-14] VITALS: Ht 172.7 cm; Wt 86.6 kg
[~2021-01-14 11:22] MED LIST changes: +GABA-283 PO; -GABA-845 PO; +LIDOCAINE 2% 100MG/5ML SDV (FOR ANES.) As Ordered ONE; +NS 1,000 ML IV ONE; +propofoL 200 MG/20 ML VIAL As Ordered ONE
[2021-01-14] MEDS ORDERED: fentaNYL 100 MCG/2 ML INJECTION (J3010) As Ordered ONE (13:14)
--- NOTE | 2021-01-14 13:42 | ROOR ---
Patient Name: Hari Eugene Procedure Date: 01/14/2021 1:19 PM Date of : 1960 Age: 60 Room: [facility] Gender: Male Note Status: Finalized Procedure: Upper GI endoscopy Indications: Dysphagia Providers: Renny Montoya MD Referring MD: Fito Varner MD Requesting Provider: Medicines: Monitored Anesthesia Care Complications: No immediate complications. Procedure: Pre-Anesthesia Assessment: - Prior to the procedure, a History and Physical was performed, and patient medications and allergies were reviewed. The patient is competent. The risks and benefits of the procedure and the sedation options and risks were discussed with the patient. All questions were answered and informed consent was obtained. Patient identification and proposed procedure were verified by the physician, the nurse and the anesthesiologist in the procedure room. Mental Status Examination: alert and oriented. Airway Examination: normal oropharyngeal airway and neck mobility. Respiratory Examination: clear to auscultation. CV Examination: normal. Prophylactic Antibiotics: The patient does not require prophylactic antibiotics. Prior Anticoagulants: The patient has taken no previous anticoagulant or antiplatelet agents. ASA Grade Assessment: II - A patient with mild systemic disease. After reviewing the risks and benefits, the patient was deemed in satisfactory condition to undergo the procedure. The anesthesia plan was to use monitored anesthesia care (MAC). Immediately prior to administration of medications, the patient was re-assessed for adequacy to receive sedatives. The heart rate, respiratory rate, oxygen saturations, blood pressure, adequacy of pulmonary ventilation, and response to care were monitored throughout the procedure. The physical status of the patient was re-assessed after the procedure. The Endoscope was introduced through the mouth, and advanced to the second part of duodenum. The upper GI endoscopy was accomplished without difficulty. The patient tolerated the procedure well. Findings: No endoscopic abnormality was evident in the esophagus to explain the patient's complaint of dysphagia. Biopsies were obtained from the proximal and distal esophagus with cold forceps for histology of suspected eosinophilic esophagitis. Verification of patient identification for the specimen was done by the physician and nurse using the patient's name, date and medical record number. Estimated blood loss was minimal. The Z-line was regular and was found 40 cm from the incisors. Scattered mild inflammation characterized by erythema and granularity was found in the gastric antrum. Biopsies were taken with a cold forceps for Helicobacter pylori testing. The duodenal bulb and second portion of the duodenum were normal. Impression: - No endoscopic esophageal abnormality to explain patient's dysphagia. Biopsied. - Z-line regular, 40 cm from the incisors. - Gastritis. Biopsied. - Normal duodenal bulb and second portion of the duodenum. Recommendation: - Patient has a contact number available for emergencies. The signs and symptoms of potential delayed complications were discussed with the patient. Return to normal activities tomorrow. Written discharge instructions were provided to the patient. - High fiber diet. - Continue present medications. - Await pathology results. - Follow an antireflux regimen. - Telephone GI clinic if symptomatic in 2 weeks. - Return to GI clinic in [facility] (address [address], [address], [place], [place] [facility] [place]) in 4 -- 6 weeks. Please call GI clinic @ [phone] for apppointment date and time. - Perform routine esophageal manometry if symptoms persist. - Return to primary care physician. Procedure Code(s): --- Professional --- 33954, Esophagogastroduodenoscopy, flexible, transoral; with biopsy, single or multiple Diagnosis Code(s): --- Professional --- R13.10, Dysphagia, unspecified K29.70, Gastritis, unspecified, without bleeding CPT copyright 2019 [employer]. All rights reserved. The codes documented in this report are preliminary and upon grinding machine operator automatic review may be revised to meet current compliance requirements. Renny Montoya MD Renny Montoya MD 01/14/2021 1:41:42 PM Electronically signed by Renny Montoya MD Number of Addenda: 0 Note Initiated On: 01/14/2021 1:19 PM Estimated Blood Loss: Estimated blood loss: none.
[2021-01-14 14:03] VITALS: BP 153/90
== END 2021-01-14 14:05 | disposition home or self-care (01) ==
LOC: M OPP 11:22
PROVIDERS: ATTEND Internal Medicine Gastroenterology
DX: R13.10 Dysphagia, unspecified (principal); R12 Heartburn; D13.0 Benign neoplasm of esophagus; D13.1 Benign neoplasm of stomach; K29.70 Gastritis, unspecified, without bleeding; I10 Essential (primary) hypertension; F17.210 Nicotine dependence, cigarettes, uncomplicated; Z79.899 Other long term (current) drug therapy; Z82.49 Family history of ischemic heart disease and other diseases of the circulatory system
CPT/HCPCS: 43239; 88305; J3010

== ENCOUNTER → 2021-02-04 | Outpatient (CLI) | payer OTHER ==
[~2021-02-04] MED LIST changes: -LIDOCAINE 2% 100MG/5ML SDV (FOR ANES.) As Ordered ONE; -NS 1,000 ML IV ONE; -propofoL 200 MG/20 ML VIAL As Ordered ONE
--- NOTE | 2021-02-09 04:57 | ECWPNPC ---
PATIENT NAME: JASON VILLAFUERTE : 1960 GENDER: MALE VISIT DATE: 02/04/2021 DISCHARGE DATE: 02/04/21 1505 VISIT LOCKED DATE TIME: PHYSICIAN: ZOYA RODRIGUEZ RESOURCE: ZOYA RODRIGUEZ REASON FOR APPOINTMENT 1. 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 CHRONIC PAIN FOLLOW-UP. HE RATES HIS PAIN CURRENTLY AT A 2 OUT OF 10 AND DESCRIBES IT ACHING, BURNING, AND THROBBING. HE FEELS MEDICATIONS ARE HELPFUL AND DENIES MED SIDE EFFECTS AT THIS TIME. MEDICATIONS ARE HELPFUL EVIDENCED BY DECREASED PAIN AND INCREASED FUNCTIONALITY.DOI: 07/15/2008. -. FALL RISK SCREENING: SCREENING : NO FALLS REPORTED IN THE LAST YEAR. PAIN SCREENING: PATIENT HAS A COMPLAINT OF ACUTE OR CHRONIC PAIN :YES LOCATION OF PAIN:LOW BACK, RIGHT HIP INTENSITY OF PAIN (SCALE OF 1 TO 10):2 FLUXTUATE AND GETS HIGH A 6 WHAT DOES YOUR PAIN FEEL LIKE:ACHING, BURNING, THROBBING DURATION:CONTINOUS, CONSTANT PAIN IS INCREASED BY:ACTIVITIES, PROLONGED STANDING PAIN IS DECREASED BY:USE OF PAIN MEDICATIONS REPOSITIONING, LAYING FLAT NURSING NOTE: -. PAIN CENTER INTAKE QUESTIONS: DO YOU HAVE A HISTORY OF MRSA? :NO DO YOU TAKE A BLOOD THINNERS? :NO DO YOU HAVE ANY BLEEDING DISORDERS? :NO ANY NEW NUMBNESS OR WEAKNESS IN YOUR LEGS OR ARMS? :YES LEFT FOOT AND SWELLING IN LEFT ANKLE ANY PACEMAKER,DEFIBRILLATOR, OR DORSAL COLUMN STIMULATOR? :NO DO YOU HAVE ANY RASHES OR OPEN SORES? :NO ARE YOU ALLERGIC TO IV DYE? :NO ARE YOU DIABETIC? :NO ANY NEW PROBLEMS WITH YOUR MEDICATIONS? :NO HAVE YOU RECEIVED A VACCINE IN THE PAST 30 DAYS? :NO DO YOU PLAN TO RECEIVE A VACCINE IN THE NEXT 21 DAYS? :NO DO YOU NEED ANY PRESCRIPTION? :YES TIZANIDINE AND OXYCODONE DO YOU TAKE ANY IMMUNOSUPPRESSIVE MEDICATIONS? :NO DO YOU HAVE ANY KIDNEY OR LIVER DISEASE? :NO IS THERE A CHANCE YOU COULD BE ? :NO ARE YOU BREAST FEEDING? :NO CURRENT MEDICATIONS TAKING AMLODIPINE BESYLATE 5 MG TABLET 1 TABLET ORALLY ONCE A DAY TAKING TIZANIDINE HCL 4 MG TABLET 1 TABLET NEEDED ORALLY QHS PRN FOR SPASMS AND PAIN MAY REPEAT IN 5 HRS MDD2 TAKING OXYCODONE HCL 5 MG TABLET 1 TABLET NEEDED ORALLY FOR PAIN EVERY 6 HOURS NEEDED NOT-TAKING APPLE CIDER VINEGAR 500 MG TABLET DIRECTED ORALLY NOT-TAKING OMEPRAZOLE 20 MG CAPSULE DELAYED RELEASE 1 CAPSULE ORALLY ONCE DAILY NOT-TAKING CO Q 10 10 MG CAPSULE 1 CAPSULE WITH A MEAL ORALLY ONCE A DAY NOT-TAKING VITAMIN D 50 MCG (1999 UT) TABLET 1 TABLET ORALLY ONCE A DAY MEDICATION LIST REVIEWED AND RECONCILED WITH THE PATIENT PAST MEDICAL HISTORY CHRONIC BACK AND NECK PAIN GERD HTN ALLERGIES ENVIRONMENTAL: HAY FEVER - ALLERGY SOCIAL HISTORY GENERAL: TOBACCO USE ARE YOU A:NONSMOKER FORMER SMOKER SMOKING CESSATION INFORMATION GIVEN02/04/2021 LATEX QUESTIONNAIRE LATEX ALLERGY : HAVE YOU EVER DEVELOPED ANY TYPE OF REACTION AFTER HANDLING LATEX PRODUCTS SUCH RUBBER GLOVES, CONDOMS, DIAPHRAGMS, BALLOONS, SOCKS, OR UNDERWEAR?NO LATEX ALLERGY : HAVE YOU EVER DEVELOPED ANY TYPE OF REACTION DURING OR AFTER DENTAL APPOINTMENT, VAGINAL/RECTAL EXAMINATION, SURGICAL PROCEDURE, OR ANY OTHER EXPOSURE?NO DATE ASKED : 11/03/2020 LATEX RISK : HAVE YOU EVER HAD ANY DIFFICULTY BREATHING OR HIVES AFTER EATING OR HANDLING ANY FRUITS, OR VEGETABLES; SUCH KIWI, BANANAS, STONE FRUITS, OR CHESTNUTSNO LATEX RISK : DO YOU HAVE A PREVIOUS PERSONAL HISTORY OF MORE THAN NINE SURGERIES, SPINA BIFIDA, OR REPEATED CATHERIZATIONS? NO LATEX RISK : ARE YOU FREQUENTLY EXPOSED TO LATEX PRODUCTS IN YOUR OCCUPATION?NO ALCOHOL USE: OCCASIONAL. ALCOHOL SCREENING DID YOU HAVE A DRINK CONTAINING ALCOHOL IN THE PAST YEAR?YES HOW OFTEN DID YOU HAVE SIX OR MORE DRINKS ON ONE OCCASION IN THE PAST YEAR?LESS THAN MONTHLY (1 POINT) HOW OFTEN DID YOU HAVE A DRINK CONTAINING ALCOHOL IN THE PAST YEAR?TWO TO FOUR TIMES A MONTH (2 POINTS) POINTS3 INTERPRETATIONNEGATIVE RECREATIONAL DRUG USE DRUG USE?NO CAFFEINE CAFFEINE USE?YES HOW OFTEN AND HOW MUCH? 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 DIET: REGULAR. EXERCISE: NO REGULAR EXERCISE, DAILY JOB DUTIES. MARITAL STATUS: SINGLE. OTHERS AT HOME: LIVES WITH OTHERS. - PFS REFERRAL NEEDED?NO CLERGY REFERRAL NEEDED?NO PUBLIC HEALTH REFERRAL NEEDED?NO WAS THE PROVIDER NOTIFIED OF ANY PERTINENT INFO?YES HAS THE PATIENT BEEN EDUCATED REGARDING HIS/HER PLAN OF CARE?YES HAS THE PATIENT BEEN EDUCATED REGARDING PAIN, THE RISK FOR PAIN, THE IMPORTANCE OF EFFECTIVE PAIN MANAGEMENT, AND THE PAIN ASSESSMENT PROCESS?YES ADVANCE DIRECTIVE ADVANCE DIRECTIVE DISCUSSED WITH PATIENT:YES DECLINED HCP INFORMATION AND ASSISTANCE AT THIS TIME REVIEW OF SYSTEMS CONSTITUTIONAL: ANY RECENT FEVER NO . CHILLS NO . WEIGHT CHANGE OF UNKNOWN REASONS NO . GASTROENTEROLOGY: NEW UNEXPLAINABLE CHANGES IN BOWEL CONTROL NO . CONSTIPATION NO . GENITOURINARY: ANY NEW CHANGE IN BLADDER CONTROL? NO . NEUROLOGY: NEW ONSET DIZZINESS OR NEUROLOGICAL CHANGES NOT MENTIONED NO . NEW NUMBNESS OR PAIN PATTERNS NOT MENTIONED AND PERTINENT TO TODAY'S VISIT NO . CARDIOLOGY: NEW CHEST PRESSURE NO . PATIENT DENIES NO . RESPIRATORY: UNEXPLAINABLE COUGH NO . NEW SHORTNESS OF BREATH NO . VITAL SIGNS WT 192.4 LBS, HT 69 IN, BMI 28.41 INDEX, BP 142/80 MM HG, HR 55 /MIN, RR 18 /MIN, TEMP 97.0 F, OXYGEN SAT % 98%, SAFE IN ENV? (Y/N) YES, NA INITIALS AW 1448, REVIEWED BY: MADINA DAWN MA. EXAMINATION GENERAL EXAMINATION: GENERALNO ACUTE DISTRESS, WELL NOURISHED AND HYDRATED. PSYCHAPPROPRIATE MOOD AND AFFECT . LUNGS:CLEAR TO AUSCULTATION BILATERALLY, NO WHEEZES, RHONCHI, RALES. HEART:NO MURMURS, REGULAR RATE AND RHYTHM. ASSESSMENTS POSTLAMINECTOMY SYNDROME, NOT ELSEWHERE CLASSIFIED - M96.1 (PRIMARY), RISK: (NULL) TREATMENT POSTLAMINECTOMY SYNDROME, NOT ELSEWHERE CLASSIFIED [facility] MRI SPINE, L.S. WITH [id number] NOTES: 60-YEAR-OLD MALE IN FOR CHRONIC PAIN FOLLOW-UP. PATIENT HAS HAD THERAPEUTIC FACET BLOCKS IN THE PAST WITH GOOD RELIEF OF SYMPTOMS EVIDENCED BY INCREASED FUNCTIONALITY AND DECREASED PAIN. WE'LL REQUEST IMAGING SO THAT WE MAY HAVE UPDATED IMAGING FOR PATIENT'S NEXT PROCEDURE. PATIENT HAS EXPRESSED UNDERSTANDING OF AND WAS IN AGREEMENT WITH TREATMENT PLAN. GIVEN TIME TO ASK QUESTIONS AND EXPRESS CONCERNS. ISTOP REGISTRY REVIEWED AND DEMONSTRATES COMPLLIANCE. (REF # ) BRINGS IN MEDICATIONS WHICH IS APPROPRIATE FOR WHAT WAS DISPENSED. RECENT URINE TOXICOLOGY REVIEWED. NO UNAUTHORIZED MEDICATIONS. NO ILLICIT SUBSTANCES AND PRESCRIBED MEDICATIONS WERE PRESENT. PROCEDURES PN WORKMANS' COMP OPINION IN YOUR OPINION, WAS THE INCIDENT THAT THE PATIENT DESCRIBED THE COMPETENT MEDICAL CAUSE OF THIS INJURY/ILLNESS? YES ARE THE PATIENT'S COMPLAINTS CONSISTENT WITH HIS/HER HISTORY OF THE INJURY/ILLNESS? YES IS THE PATIENT'S HISTORY OF THE INJURY/ILLNESS CONSISTENT WITH YOUR OBJECTIVE FINDING? YES WHAT IS THE PERCENTAGE OF TEMPORARY IMPAIRMENT? MODERATE TO MARKED = 66.7% IS THE PATIENT WORKING? YES DOCTOR ON SITE: GLENN NICHOLS MD PROCEDURE CODES FA211 ESTABILISHED PATIENT [facility] CHARGE DISPOSITION & COMMUNICATION FOLLOW UP POST IMAGING (REASON: MRI LUMBAR SPINE WITH CONTRAST ) ELECTRONICALLY SIGNED BY OMID CROW ON 02/08/2021 AT 08:13 AM EDT DISCLAIMER : THIS IS A VISIT SUMMARY EXTRACTED FROM THE [employer] CHART. IT IS NOT A COPY OF THE [employer] PROGRESS NOTE. RACHEL
== END ==
LOC: M PAIN 14:45
PROVIDERS: ATTEND Family Medicine
DX: M96.1 Postlaminectomy syndrome, not elsewhere classified (principal); Z87.891 Personal history of nicotine dependence; Z79.899 Other long term (current) drug therapy

== ENCOUNTER → 2021-04-06 | Outpatient (CLI) | payer OTHER ==
--- NOTE | 2021-04-08 00:06 | ECWPNPC ---
PATIENT NAME: JASON VILLAFUERTE : 1960 GENDER: MALE VISIT DATE: 04/06/2021 DISCHARGE DATE: 04/06/21 1110 VISIT LOCKED DATE TIME: PHYSICIAN: ZOYA RODRIGUEZ RESOURCE: ZOYA RODRIGUEZ REASON FOR APPOINTMENT 1. MRI REVIEW HISTORY OF PRESENT ILLNESS DEPRESSION SCREENING: PHQ-2 (2015 EDITION) LITTLE INTEREST OR PLEASURE IN DOING THINGS?NOT AT ALL FEELING DOWN, DEPRESSED, OR HOPELESS?NOT AT ALL TOTAL SCORE0 GENERAL: HPI 60-YEAR-OLD MALE IN FOR WORKER'S COMP. CHRONIC PAIN FOLLOW-UP. PATIENT HAD AN MRI RECENTLY WHICH WILL BE REVIEWED WITH PATIENT TODAY. HE RATES HIS PAIN CURRENTLY AT A 3 OUT OF 10 AND DESCRIBES IT ACHING, CONTINUOUS, AND THROBBING. PATIENT HAS HAD BILATERAL THERAPEUTIC FACET BLOCKS IN THE PAST WITH GOOD RESULTS EVIDENCED BY DECREASED PAIN AND INCREASED FUNCTIONALITY. WE WILL DISCUSS REPEAT PROCEDURES TODAY. DOI 07/15/2008. -. FALL RISK SCREENING: SCREENING : NO FALLS REPORTED IN THE LAST YEAR. PAIN SCREENING: PATIENT HAS A COMPLAINT OF ACUTE OR CHRONIC PAIN :YES LOCATION OF PAIN:LOW BACK INTENSITY OF PAIN (SCALE OF 1 TO 10):3 WHAT DOES YOUR PAIN FEEL LIKE:ACHING, CONTINOUS, THROBBING DURATION:CONTINOUS, CONSTANT, AWAKENS FROM SLEEP PAIN IS INCREASED BY:ACTIVITIES, PROLONGED STANDING SITTING PAIN IS DECREASED BY:USE OF PAIN MEDICATIONS, OTHERS STRETCHES, HEATING PAD NURSING NOTE: -. PAIN CENTER INTAKE QUESTIONS: DO YOU HAVE A HISTORY OF MRSA? :NO DO YOU TAKE A BLOOD THINNERS? :NO DO YOU HAVE ANY BLEEDING DISORDERS? :NO ANY NEW NUMBNESS OR WEAKNESS IN YOUR LEGS OR ARMS? :NO LEFT FOOT AND SWELLING IN LEFT ANKLE ANY PACEMAKER,DEFIBRILLATOR, OR DORSAL COLUMN STIMULATOR? :NO DO YOU HAVE ANY RASHES OR OPEN SORES? :NO ARE YOU ALLERGIC TO IV DYE? :NO ARE YOU DIABETIC? :NO ANY NEW PROBLEMS WITH YOUR MEDICATIONS? :NO HAVE YOU RECEIVED A VACCINE IN THE PAST 30 DAYS? :NO DO YOU PLAN TO RECEIVE A VACCINE IN THE NEXT 21 DAYS? :NO DO YOU NEED ANY PRESCRIPTION? :NO DO YOU TAKE ANY IMMUNOSUPPRESSIVE MEDICATIONS? :NO DO YOU HAVE ANY KIDNEY OR LIVER DISEASE? :NO IS THERE A CHANCE YOU COULD BE ? :NO ARE YOU BREAST FEEDING? :NO CURRENT MEDICATIONS TAKING AMLODIPINE BESYLATE 5 MG TABLET 1 TABLET ORALLY ONCE A DAY TAKING OXYCODONE HCL 5 MG TABLET 1 TABLET NEEDED ORALLY FOR PAIN EVERY 6 HOURS NEEDED TAKING TIZANIDINE HCL 4 MG TABLET 1 TABLET NEEDED ORALLY QHS PRN FOR SPASMS AND PAIN MAY REPEAT IN 5 HRS MDD2 NOT-TAKING APPLE CIDER VINEGAR 500 MG TABLET DIRECTED ORALLY NOT-TAKING OMEPRAZOLE 20 MG CAPSULE DELAYED RELEASE 1 CAPSULE ORALLY ONCE DAILY NOT-TAKING CO Q 10 10 MG CAPSULE 1 CAPSULE WITH A MEAL ORALLY ONCE A DAY NOT-TAKING VITAMIN D 50 MCG (1999 UT) TABLET 1 TABLET ORALLY ONCE A DAY MEDICATION LIST REVIEWED AND RECONCILED WITH THE PATIENT PAST MEDICAL HISTORY CHRONIC BACK AND NECK PAIN GERD HTN ALLERGIES ENVIRONMENTAL: HAY FEVER - ALLERGY SOCIAL HISTORY GENERAL: TOBACCO USE ARE YOU A:NONSMOKER FORMER SMOKER SMOKING CESSATION INFORMATION GIVEN02/04/2021 LATEX QUESTIONNAIRE LATEX ALLERGY : HAVE YOU EVER DEVELOPED ANY TYPE OF REACTION AFTER HANDLING LATEX PRODUCTS SUCH RUBBER GLOVES, CONDOMS, DIAPHRAGMS, BALLOONS, SOCKS, OR UNDERWEAR?NO LATEX ALLERGY : HAVE YOU EVER DEVELOPED ANY TYPE OF REACTION DURING OR AFTER DENTAL APPOINTMENT, VAGINAL/RECTAL EXAMINATION, SURGICAL PROCEDURE, OR ANY OTHER EXPOSURE?NO LATEX RISK : HAVE YOU EVER HAD ANY DIFFICULTY BREATHING OR HIVES AFTER EATING OR HANDLING ANY FRUITS, OR VEGETABLES; SUCH KIWI, BANANAS, STONE FRUITS, OR CHESTNUTSNO LATEX RISK : DO YOU HAVE A PREVIOUS PERSONAL HISTORY OF MORE THAN NINE SURGERIES, SPINA BIFIDA, OR REPEATED CATHERIZATIONS? NO LATEX RISK : ARE YOU FREQUENTLY EXPOSED TO LATEX PRODUCTS IN YOUR OCCUPATION?NO DATE ASKED : 04/06/2021 ALCOHOL USE: OCCASIONAL. ALCOHOL SCREENING DID YOU HAVE A DRINK CONTAINING ALCOHOL IN THE PAST YEAR?YES HOW OFTEN DID YOU HAVE A DRINK CONTAINING ALCOHOL IN THE PAST YEAR?TWO TO FOUR TIMES A MONTH (2 POINTS) HOW OFTEN DID YOU HAVE SIX OR MORE DRINKS ON ONE OCCASION IN THE PAST YEAR?LESS THAN MONTHLY (1 POINT) POINTS3 INTERPRETATIONNEGATIVE RECREATIONAL DRUG USE DRUG USE?NO CAFFEINE CAFFEINE USE?YES HOW OFTEN AND HOW MUCH? 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 DIET: REGULAR. EXERCISE: NO REGULAR EXERCISE, DAILY JOB DUTIES. MARITAL STATUS: SINGLE. OTHERS AT HOME: LIVES WITH OTHERS. - PFS REFERRAL NEEDED?NO CLERGY REFERRAL NEEDED?NO PUBLIC HEALTH REFERRAL NEEDED?NO WAS THE PROVIDER NOTIFIED OF ANY PERTINENT INFO?YES HAS THE PATIENT BEEN EDUCATED REGARDING HIS/HER PLAN OF CARE?YES HAS THE PATIENT BEEN EDUCATED REGARDING PAIN, THE RISK FOR PAIN, THE IMPORTANCE OF EFFECTIVE PAIN MANAGEMENT, AND THE PAIN ASSESSMENT PROCESS?YES ADVANCE DIRECTIVE ADVANCE DIRECTIVE DISCUSSED WITH PATIENT:YES DECLINED HCP INFORMATION AND ASSISTANCE AT THIS TIME REVIEW OF SYSTEMS CONSTITUTIONAL: ANY RECENT FEVER NO . CHILLS NO . WEIGHT CHANGE OF UNKNOWN REASONS NO . GASTROENTEROLOGY: NEW UNEXPLAINABLE CHANGES IN BOWEL CONTROL NO . CONSTIPATION NO . GENITOURINARY: ANY NEW CHANGE IN BLADDER CONTROL? NO . NEUROLOGY: NEW ONSET DIZZINESS OR NEUROLOGICAL CHANGES NOT MENTIONED NO . NEW NUMBNESS OR PAIN PATTERNS NOT MENTIONED AND PERTINENT TO TODAY'S VISIT NO . CARDIOLOGY: NEW CHEST PRESSURE NO . PATIENT DENIES NO . RESPIRATORY: UNEXPLAINABLE COUGH NO . NEW SHORTNESS OF BREATH NO . VITAL SIGNS WT 189.0 LBS, WT-KG 85.73 KG, HT 69 IN, BMI 27.91 INDEX, BP 163/86 MM HG, HR 56 /MIN, RR 18 /MIN, TEMP 97.5 F, OXYGEN SAT % 99%, SAFE IN ENV? (Y/N) YES, NA INITIALS AW 1030, REVIEWED BY: MADINA DAWN MA. EXAMINATION GENERAL EXAMINATION: GENERALNO ACUTE DISTRESS, WELL NOURISHED AND HYDRATED. PSYCHAPPROPRIATE MOOD AND AFFECT . LUNGS:CLEAR TO AUSCULTATION BILATERALLY, NO WHEEZES, RHONCHI, RALES. HEART:NO MURMURS, REGULAR RATE AND RHYTHM. BACK:POINT TENDER ALONG LUMBAR SPINE, PATIENT DOES ENDORSE INCREASED PAIN WITH FACET LOADING. ASSESSMENTS SPONDYLOSIS WITHOUT MYELOPATHY OR RADICULOPATHY, LUMBOSACRAL REGION - M47.817 (PRIMARY) CHRONIC PRESCRIPTION OPIATE USE - Z79.891 TREATMENT SPONDYLOSIS WITHOUT MYELOPATHY OR RADICULOPATHY, LUMBOSACRAL REGION MEDICATION: PAIN OXYCODONE HCL TAB 10MG ORALLY (ORDERED FOR 04/14/2021)[id number] MEDICATION: PAIN VALIUM TAB 10MG ORALLY (DIAZEPAM) (ORDERED FOR 04/14/2021)[id number] NOTES: 60-YEAR-OLD MALE IN FOR CHRONIC PAIN FOLLOW-UP. GIVEN PRESENTING SYMPTOMS AND RESULTS OF PHYSICAL EXAMINATION RECOMMEND BILATERAL THERAPEUTIC LUMBAR FACET BLOCK L4-L5 L5-S1 WITH POSTPROCEDURAL FOLLOW-UP. PATIENT HAS EXPRESSED UNDERSTANDING OF AND WAS IN AGREEMENT WITH TREATMENT PLAN. GIVEN TIME TO ASK QUESTIONS AND EXPRESS CONCERNS. 04/06/21 1105 REVIEWED INFORMATION ON THERAPEUTIC FACET BLOCK PROCEDURE WITH PATIENT. ALSO REVIEWED PRE-PROCEDURE INSTRUCTIONS. PATIENT VERBALIZED AN UNDERSTANDING. Elvie COLÓN RN. CHRONIC PRESCRIPTION OPIATE USE LAB: [facility] CRISTIANA COLÓN 04/06/2021 11:07:02 AM > OXYCODONE LAST DOSE - 04/02/2021 PROCEDURES PN WORKMANS' COMP OPINION IN YOUR OPINION, WAS THE INCIDENT THAT THE PATIENT DESCRIBED THE COMPETENT MEDICAL CAUSE OF THIS INJURY/ILLNESS? YES ARE THE PATIENT'S COMPLAINTS CONSISTENT WITH HIS/HER HISTORY OF THE INJURY/ILLNESS? YES IS THE PATIENT'S HISTORY OF THE INJURY/ILLNESS CONSISTENT WITH YOUR OBJECTIVE FINDING? YES WHAT IS THE PERCENTAGE OF TEMPORARY IMPAIRMENT? MODERATE TO MARKED = 66.7% IS THE PATIENT WORKING? YES DOCTOR ON SITE: GLENN NICHOLS MD PROCEDURE CODES FA211 ESTABILISHED PATIENT [facility] FACILITY CHARGE DISPOSITION & COMMUNICATION FOLLOW UP POST PROCEDURE (REASON: BILATERAL THERAPEUTIC LUMBAR FACET BLOCK L4-L5,L5-S1) ELECTRONICALLY SIGNED BY OMID CROW ON 04/07/2021 AT 07:50 AM EDT DISCLAIMER : THIS IS A VISIT SUMMARY EXTRACTED FROM THE [facility] CHART. IT IS NOT A COPY OF THE [facility] PROGRESS NOTE. RACHEL
== END ==
LOC: M PAIN 10:15
PROVIDERS: ATTEND Family Medicine
DX: M47.817 Spondylosis without myelopathy or radiculopathy, lumbosacral region (principal); G89.29 Other chronic pain; Z87.891 Personal history of nicotine dependence; Z79.899 Other long term (current) drug therapy

== ENCOUNTER → 2021-05-18 | Outpatient (CLI) | payer OTHER | LOC: M LABSMTC 09:11 | PROVIDERS: ATTEND Anesthesiology | DX: Z01.812 Encounter for preprocedural laboratory examination (principal); Z20.822 Contact with and (suspected) exposure to COVID-19 ==

== ENCOUNTER → 2021-05-23 | Outpatient (CLI) | payer OTHER ==
[~2021-05-23] MED LIST changes: +BUPIVACAINE HCL 0.25% 30ML VIAL As Ordered ONE; +ISOVUE-M 300 61% 15ML VIAL As Ordered ONE; +LIDOCAINE 1% SDV 30ML VIAL As Ordered ONE; +TRIAMCINOLONE ACETONIDE SUSP 40 MG/ML VIAL (J3301) As Ordered ONE; +diazePAM 5MG TABLET As Ordered ONE; +oxyCODONE 5MG TAB As Ordered ONE
--- NOTE | 2021-05-23 10:57 | REP ---
INDICATION: BILATERAL THERAPEUTIC LUMBAR FACET BLOCK L4-L5, L5-S1. COMPARISON: None. TECHNIQUE: Two views. 34.1 seconds of fluoroscopy time is reported. FINDINGS: A sequence of 2 last image hold fluoroscopically obtained spot radiographs of the lumbar spine document various needle positions and contrast injections associated with injection procedure. IMPRESSION: Procedural imaging. <Electronically signed by Dheeraj Bueno > 05/23/21 1618
== END ==
LOC: M PAIN 08:30
PROVIDERS: ATTEND Anesthesiology
DX: M47.816 Spondylosis without myelopathy or radiculopathy, lumbar region (principal); M47.817 Spondylosis without myelopathy or radiculopathy, lumbosacral region; Z87.891 Personal history of nicotine dependence; Z79.899 Other long term (current) drug therapy
CPT/HCPCS: 64493; 64494; J3301; Q9967

== ENCOUNTER 2021-08-26 00:07 | Observation (INO) | payer OTHER ==
[~2021-08-26] VITALS: Ht 170.2 cm; Wt 93.0 kg
[~2021-08-26 00:07] MED LIST changes: -BUPIVACAINE HCL 0.25% 30ML VIAL As Ordered ONE; -IBUP200T45 PO; +IBUP200T46 PO; -ISOVUE-M 300 61% 15ML VIAL As Ordered ONE; -LIDOCAINE 1% SDV 30ML VIAL As Ordered ONE; +TIZA10TA PO; -TIZA4TAB4 PO; -TRIAMCINOLONE ACETONIDE SUSP 40 MG/ML VIAL (J3301) As Ordered ONE; -diazePAM 5MG TABLET As Ordered ONE; -oxyCODONE 5MG TAB As Ordered ONE
[2021-08-26] MEDS ORDERED: MORPHINE 4 MG/ML 1ML VIAL/SYRINGE (J2270) IV ONE (01:55)
[2021-08-26] MEDS ORDERED: NS 1,000 ML IV ONE ×2 (01:55)
[2021-08-26] MEDS ORDERED: ONDANSETRON 4MG/2ML VIAL IV ONE (02:10)
[2021-08-26 02:36] LABS: BASO # 0.1 10^3/uL (0.0-0.2); BASO % 1.1 % (0.0-1.0); EOS # 0.5 10^3/uL (0.0-0.5); EOS % 6.8 % (0.0-3.0); HEMATOCRIT 45.1 % (42.0-52.0); HEMOGLOBIN 15.2 g/dl (13.5-17.5); LYMPH # 2.9 10^3/uL (1.5-5.0); LYMPH % 38.9 % (24.0-44.0); MEAN CORPUSCULAR HEMOGLOBIN 30.3 pg (27.0-33.0); MEAN CORPUSCULAR HGB CONC 33.7 g/dl (32.0-36.5); MONO # 0.8 10^3/uL (0.0-0.8); MONO % 10.4 % (2.0-8.0); NEUTROPHILS # 3.2 10^3/uL (1.5-8.5); NEUTROPHILS % 42.7 % (36.0-66.0); PLATELET COUNT, AUTOMATED 272 10^3/uL (150-450); RED BLOOD COUNT 5.01 10^6/uL (4.30-6.10); WHITE BLOOD COUNT 7.5 10^3/uL (4.0-10.0)
[2021-08-26 03:00] LABS: ALBUMIN 3.9 GM/DL (3.2-5.2); ALT/SGPT 141 U/L (12-78); BILIRUBIN,TOTAL 0.5 MG/DL (0.2-1.0); BLOOD UREA NITROGEN 16 MG/DL (7-18); CALCIUM LEVEL 8.8 MG/DL (8.5-10.1); CARBON DIOXIDE LEVEL 26 MEQ/L (21-32); CHLORIDE LEVEL 108 MEQ/L (98-107); CREATININE FOR GFR 0.92 MG/DL (0.70-1.30); GLOMERULAR FILTRATION RATE > 60.0 (>56); GLUCOSE, FASTING 119 MG/DL (70-100); LIPASE 121 U/L (73-393); MAGNESIUM LEVEL 2.6 MG/DL (1.8-2.4); POTASSIUM SERUM 3.7 MEQ/L (3.5-5.1); SODIUM LEVEL 142 MEQ/L (136-145); TOTAL PROTEIN 7.4 GM/DL (6.4-8.2)
[2021-08-26 03:13] LABS: RSV AMPLIFICATION NEGATIVE (NEGATIVE)
[2021-08-26 04:49] LABS: ETHYL ALCOHOL (ETHANOL) 0.129 % (0.000-0.010)
[2021-08-26] MEDS ORDERED: HOME MED LIST COMPLETE! XX SCH (04:50)
[2021-08-26] MEDS ORDERED: guaiFENesin DM LIQ 10ML UD PO PRN (05:40)
[2021-08-26] MEDS ORDERED: THIAMINE 200MG 2ML VIAL IM ONE (05:40)
[2021-08-26] MEDS: HYDROMORPHONE HCL 0.5 MG/ 0.5 ML SYRINGE (J1170 PER 1) IV PRN ×2 (06:45→13:12)
[2021-08-26] MEDS: NS 1,000 ML IV SCH (06:56)
[2021-08-26] MEDS ORDERED: PANTOPRAZOLE 40MG VIAL (C9113 PER 1) IV SCH (09:00)
[2021-08-26] MEDS: SUCRALFATE 1 GM TAB PO SCH ×3 (10:08→22:37)
[2021-08-26] MEDS: PANTOPRAZOLE 40MG VIAL (C9113 PER 1) IV SCH ×2 (10:08→22:38)
[2021-08-26] MEDS ORDERED: MULTIVITAMIN -ADULT INJECTION 10 ML, FOLIC ACID 1 MG, THIAMINE INJection 100 MG in NS 1... IV ONE (12:00)
[2021-08-26] MEDS: HEPARIN SOD (PORCINE) 5000UNITS/ML 1ML VIAL/SYRINGE SQ SCH ×2 (14:28→22:38)
[2021-08-26] MEDS ORDERED: HYDROMORPHONE HCL 0.5 MG/ 0.5 ML SYRINGE (J1170 PER 1) IV PRN (16:05)
[2021-08-26] MEDS ORDERED: GI COCKTAIL 50ML BTL(HYOSCYAMINE/MAALOX/LIDOCAINE VISCOUS)(1:3:1) PO ONE (17:00)
[2021-08-26 17:58] LABS: HEPATITIS B SURFACE ANTIGEN NEGATIVE (NEGATIVE)
[2021-08-26 18:26] LABS: HEPATITIS B CORE ANTIBODY IGM NEGATIVE (NEGATIVE); HEPATITIS C VIRUS ABY INDEX 0.1 INDEX (<0.8)
[2021-08-26 21:00] VITALS: BP 139/80
[2021-08-27 06:00] VITALS: BP 138/82
[2021-08-27 06:38] LABS: BASO # 0.1 10^3/uL (0.0-0.2); BASO % 1.3 % (0.0-1.0); EOS # 0.6 10^3/uL (0.0-0.5); EOS % 9.7 % (0.0-3.0); HEMATOCRIT 43.6 % (42.0-52.0); HEMOGLOBIN 14.5 g/dl (13.5-17.5); LYMPH # 2.1 10^3/uL (1.5-5.0); LYMPH % 33.1 % (24.0-44.0); MEAN CORPUSCULAR HEMOGLOBIN 30.7 pg (27.0-33.0); MEAN CORPUSCULAR HGB CONC 33.3 g/dl (32.0-36.5); MEAN CORPUSCULAR VOLUME 92.4 fl (80.0-96.0); MONO # 0.7 10^3/uL (0.0-0.8); MONO % 10.7 % (2.0-8.0); NEUTROPHILS # 2.8 10^3/uL (1.5-8.5); PLATELET COUNT, AUTOMATED 222 10^3/uL (150-450); RED BLOOD COUNT 4.72 10^6/uL (4.30-6.10); WHITE BLOOD COUNT 6.2 10^3/uL (4.0-10.0)
[2021-08-27 06:57] LABS: BLOOD UREA NITROGEN 16 MG/DL (7-18); CALCIUM LEVEL 8.6 MG/DL (8.5-10.1); CARBON DIOXIDE LEVEL 26 MEQ/L (21-32); CHLORIDE LEVEL 108 MEQ/L (98-107); CREATININE FOR GFR 0.84 MG/DL (0.70-1.30); GLOMERULAR FILTRATION RATE > 60.0 (>56); GLUCOSE, FASTING 96 MG/DL (70-100); MAGNESIUM LEVEL 2.2 MG/DL (1.8-2.4); PHOSPHORUS LEVEL 2.7 MG/DL (2.5-4.9); SODIUM LEVEL 140 MEQ/L (136-145)
[2021-08-27] MEDS: NS 1,000 ML IV SCH (07:01)
[2021-08-27] MEDS: HEPARIN SOD (PORCINE) 5000UNITS/ML 1ML VIAL/SYRINGE SQ SCH (07:02)
[2021-08-27] MEDS: SUCRALFATE 1 GM TAB PO SCH (07:03)
[2021-08-27] MEDS ORDERED: THIAMINE 200MG 2ML VIAL IV SCH ×2 (09:00)
[2021-08-27] MEDS: PANTOPRAZOLE 40MG VIAL (C9113 PER 1) IV SCH (10:03)
[2021-08-27] MEDS: FOLIC ACID 1 MG in NS 50 ML IV SCH ×2 (10:04→10:40)
[2021-08-27] MEDS ORDERED: THIA100T7 PO (10:44)
[2021-08-27] MEDS ORDERED: SUCR1TA PO (10:44)
[2021-08-27] MEDS ORDERED: FOLI1TAB11 PO (10:44)
== END 2021-08-27 12:15 | disposition home or self-care (01) ==
LOC: M ED 00:07 → M ED INP 00:08 → ENRESERV 07:00 → M MSPAV 08:35
PROVIDERS: ADMIT Internal Medicine; ATTEND Internal Medicine
DX: K29.70 Gastritis, unspecified, without bleeding (principal); R55 Syncope and collapse; R05.9 Cough, unspecified; R74.01 Elevation of levels of liver transaminase levels; K85.90 Acute pancreatitis without necrosis or infection, unspecified; F10.10 Alcohol abuse, uncomplicated; M54.9 Dorsalgia, unspecified; I10 Essential (primary) hypertension; Z79.899 Other long term (current) drug therapy; F17.218 Nicotine dependence, cigarettes, with other nicotine-induced disorders
CPT/HCPCS: 36415; 74176; 76705; 80048; 80053; 82077; 83605; 83690; 83735; 84100; 84484; 85025; 86705; 86709; 86803; 87040; 87340; 87631; 93005; 96361; 96372; 96374; 96375; 96376; 99285; C9113; J1170; J1644; J2270; J2405; J3411

== ENCOUNTER → 2021-09-14 | Outpatient (CLI) | payer OTHER ==
[~2021-09-14] MED LIST changes: +FOLI1TAB11 PO; +SUCR1TA PO; +THIA100T7 PO
== END ==
LOC: M PAIN 14:00
PROVIDERS: ATTEND Nurse Practitioner Family
DX: G89.29 Other chronic pain (principal); M47.816 Spondylosis without myelopathy or radiculopathy, lumbar region; M47.817 Spondylosis without myelopathy or radiculopathy, lumbosacral region; Z79.899 Other long term (current) drug therapy

== ENCOUNTER → 2022-01-06 | Outpatient (CLI) | payer OTHER | LOC: M PAIN 14:00 | PROVIDERS: ATTEND Nurse Practitioner Family | DX: M47.816 Spondylosis without myelopathy or radiculopathy, lumbar region (principal); M47.817 Spondylosis without myelopathy or radiculopathy, lumbosacral region; G89.29 Other chronic pain; Z87.891 Personal history of nicotine dependence; Z79.899 Other long term (current) drug therapy ==

== ENCOUNTER → 2022-05-28 | Outpatient (CLI) | payer OTHER ==
[~2022-05-28] MED LIST changes: +FLON1SPR
== END ==
LOC: M LABSMTC 11:27
PROVIDERS: ATTEND Anesthesiology
DX: Z01.812 Encounter for preprocedural laboratory examination (principal); Z20.822 Contact with and (suspected) exposure to COVID-19

== ENCOUNTER 2022-06-01 18:58 | Emergency (ER) | payer OTHER ==
[~2022-06-01] VITALS: Ht 172.7 cm; Wt 81.8 kg
[2022-06-01 22:37] VITALS: BP 152/93
== END 2022-06-01 22:38 | disposition home or self-care (01) ==
LOC: M ED 18:58
DX: S00.83XA Contusion of other part of head, initial encounter (principal); W22.8XXA Striking against or struck by other objects, initial encounter; Y99.0 Civilian activity done for income or pay; I10 Essential (primary) hypertension; K21.9 Gastro-esophageal reflux disease without esophagitis; M43.22 Fusion of spine, cervical region; M43.23 Fusion of spine, cervicothoracic region; M50.30 Other cervical disc degeneration, unspecified cervical region; J30.89 Other allergic rhinitis; Z79.899 Other long term (current) drug therapy

== ENCOUNTER → 2022-06-25 | Outpatient (CLI) | payer OTHER | LOC: M LABSMTC 09:18 | PROVIDERS: ATTEND Anesthesiology | DX: Z01.812 Encounter for preprocedural laboratory examination (principal); Z20.822 Contact with and (suspected) exposure to COVID-19 ==

== ENCOUNTER → 2022-06-29 | Outpatient (CLI) | payer OTHER ==
[~2022-06-29] MED LIST changes: +BUPIVACAINE HCL 0.25% 30ML VIAL As Ordered ONE; +ISOVUE-M 300 61% 15ML VIAL As Ordered ONE; +LIDOCAINE 1% SDV 30ML VIAL As Ordered ONE; +TRIAMCINOLONE ACETONIDE SUSP 40 MG/ML VIAL (J3301) As Ordered ONE; +diazePAM 5MG TABLET As Ordered ONE; +oxyCODONE 5MG TAB As Ordered ONE
== END ==
LOC: M PAIN 13:00
PROVIDERS: ATTEND Anesthesiology
DX: M47.816 Spondylosis without myelopathy or radiculopathy, lumbar region (principal); M47.817 Spondylosis without myelopathy or radiculopathy, lumbosacral region; G89.29 Other chronic pain; G47.30 Sleep apnea, unspecified; K21.9 Gastro-esophageal reflux disease without esophagitis; I10 Essential (primary) hypertension; Z87.891 Personal history of nicotine dependence; Z79.899 Other long term (current) drug therapy
CPT/HCPCS: 64493; 64494; J3301; Q9967

== ENCOUNTER → 2022-07-11 | Outpatient (CLI) | payer OTHER ==
[~2022-07-11] MED LIST changes: -BUPIVACAINE HCL 0.25% 30ML VIAL As Ordered ONE; -ISOVUE-M 300 61% 15ML VIAL As Ordered ONE; -LIDOCAINE 1% SDV 30ML VIAL As Ordered ONE; -TRIAMCINOLONE ACETONIDE SUSP 40 MG/ML VIAL (J3301) As Ordered ONE; -diazePAM 5MG TABLET As Ordered ONE; -oxyCODONE 5MG TAB As Ordered ONE
== END ==
LOC: M WUC 08:11
PROVIDERS: ATTEND Physician Assistant
DX: R97.20 Elevated prostate specific antigen [PSA] (principal)

== ENCOUNTER → 2022-07-24 | Outpatient (CLI) | payer OTHER | LOC: M PAIN 12:00 | PROVIDERS: ATTEND Anesthesiology | DX: M47.816 Spondylosis without myelopathy or radiculopathy, lumbar region (principal); G89.29 Other chronic pain; K21.9 Gastro-esophageal reflux disease without esophagitis; I10 Essential (primary) hypertension; Z87.891 Personal history of nicotine dependence; Z79.899 Other long term (current) drug therapy ==

== ENCOUNTER → 2022-09-27 | Outpatient (CLI) | payer OTHER | LOC: M PAIN 09:00 | PROVIDERS: ATTEND Anesthesiology | DX: M54.50 Low back pain, unspecified (principal); M53.3 Sacrococcygeal disorders, not elsewhere classified; G89.29 Other chronic pain; K21.9 Gastro-esophageal reflux disease without esophagitis; I10 Essential (primary) hypertension; Z87.891 Personal history of nicotine dependence; Z79.899 Other long term (current) drug therapy ==

== ENCOUNTER → 2022-10-11 | Outpatient (CLI) | payer OTHER ==
[2022-10-11 13:49] LABS: FREE T4 1.12 NG/DL (0.89-1.76); THYROID STIMULATING HORMONE 1.332 uIU/ML (0.55-4.78)
== END ==
LOC: M PLALAB 10:57
PROVIDERS: ATTEND Nurse Practitioner Family
DX: R94.6 Abnormal results of thyroid function studies (principal)

== ENCOUNTER 2022-12-15 16:23 | Emergency (ER) | payer OTHER ==
[~2022-12-15] VITALS: Ht 172.7 cm; Wt 81.8 kg
[2022-12-15 16:26] VITALS: BP 137/96
== END 2022-12-15 17:15 | disposition left against medical advice (07) ==
LOC: M ED 16:23
DX: Z53.21 Procedure and treatment not carried out due to patient leaving prior to being seen by health care provider (principal)

== ENCOUNTER → 2022-12-22 | Outpatient (CLI) | payer OTHER | LOC: M TMPAIN 15:15 → M PAIN 15:15 | PROVIDERS: ATTEND Anesthesiology | DX: M47.816 Spondylosis without myelopathy or radiculopathy, lumbar region (principal); G89.29 Other chronic pain; K21.9 Gastro-esophageal reflux disease without esophagitis; I10 Essential (primary) hypertension; Z87.891 Personal history of nicotine dependence; Z79.899 Other long term (current) drug therapy ==

== ENCOUNTER → 2023-01-12 | Outpatient (CLI) | payer OTHER | LOC: M PAIN 16:00 | PROVIDERS: ATTEND Nurse Practitioner Family | DX: M47.816 Spondylosis without myelopathy or radiculopathy, lumbar region (principal); M47.817 Spondylosis without myelopathy or radiculopathy, lumbosacral region; G89.29 Other chronic pain; K21.9 Gastro-esophageal reflux disease without esophagitis; I10 Essential (primary) hypertension; Z87.891 Personal history of nicotine dependence; Z79.899 Other long term (current) drug therapy ==

== ENCOUNTER → 2023-03-08 | Outpatient (CLI) | payer OTHER ==
[~2023-03-08] MED LIST changes: +ISOVUE-M 300 61% 15ML VIAL As Ordered ONE; +LIDOCAINE 1% SDV 30ML VIAL As Ordered ONE; +TRIAMCINOLONE ACETONIDE SUSP 40MG/ML 1ML VIAL As Ordered ONE; +diazePAM 5MG TABLET As Ordered ONE; +oxyCODONE 5MG TAB As Ordered ONE
== END ==
LOC: M PAIN 13:30
PROVIDERS: ATTEND Anesthesiology
DX: M47.816 Spondylosis without myelopathy or radiculopathy, lumbar region (principal); G89.29 Other chronic pain; K21.9 Gastro-esophageal reflux disease without esophagitis; I10 Essential (primary) hypertension; Z87.891 Personal history of nicotine dependence; Z79.899 Other long term (current) drug therapy
CPT/HCPCS: 64493; 64494; J3301; Q9967; S0020

== ENCOUNTER → 2023-04-05 | Outpatient (CLI) | payer OTHER ==
[~2023-04-05] MED LIST changes: -GABA-283 PO; +GABA-284 PO; -ISOVUE-M 300 61% 15ML VIAL As Ordered ONE; -LIDOCAINE 1% SDV 30ML VIAL As Ordered ONE; -TRIAMCINOLONE ACETONIDE SUSP 40MG/ML 1ML VIAL As Ordered ONE; -diazePAM 5MG TABLET As Ordered ONE; -oxyCODONE 5MG TAB As Ordered ONE
== END ==
LOC: M PLALAB 14:44
PROVIDERS: ATTEND Physician Assistant
DX: R97.20 Elevated prostate specific antigen [PSA] (principal)

== ENCOUNTER → 2023-04-05 | Outpatient (CLI) | payer OTHER | LOC: M PLALAB 14:39 | PROVIDERS: ATTEND Nurse Practitioner Family | DX: Z79.891 Long term (current) use of opiate analgesic (principal); R97.20 Elevated prostate specific antigen [PSA] ==

== ENCOUNTER → 2023-04-12 | Outpatient (CLI) | payer OTHER | LOC: M PAIN 15:30 | PROVIDERS: ATTEND Nurse Practitioner Family | DX: G89.29 Other chronic pain (principal); M47.816 Spondylosis without myelopathy or radiculopathy, lumbar region; K21.9 Gastro-esophageal reflux disease without esophagitis; Z87.891 Personal history of nicotine dependence; Z79.899 Other long term (current) drug therapy ==

== ENCOUNTER → 2023-07-23 | Outpatient (CLI) | payer OTHER | LOC: M PAIN 11:15 | PROVIDERS: ATTEND Nurse Practitioner Family | DX: M96.1 Postlaminectomy syndrome, not elsewhere classified (principal); G89.29 Other chronic pain; Z87.891 Personal history of nicotine dependence; Z79.899 Other long term (current) drug therapy ==

== ENCOUNTER 2023-10-06 11:29 | Observation (INO) | payer OTHER ==
[~2023-10-06 11:29] MED LIST changes: +AMLO1TAB25 PO; +AMLO25TA PO; +DOXY100T PO; +LEVO1TAB40 PO; +MELO15TA28 PO; +PREG100CA PO; +ROSU40TA4 PO; +THIA100TA PO; +VALT500T PO; +VITA100093 PO; +VITMTA PO; +ZOLO100T PO
[2023-10-06] MEDS ORDERED: POTA1TAB23 PO (11:46)
[2023-10-06] MEDS: diazePAM 5MG TABLET PO ONE (14:03)
[2023-10-06] MEDS: NS 1,000 ML IV ONE (14:04)
[2023-10-06] MEDS: MORPHINE 4 MG/ML 1ML VIAL IV ONE (14:04)
[2023-10-06] MEDS: LIDOCAINE 5% (LIDODERM) PATCH TD ONE (14:06)
[2023-10-06 15:00] LABS: BASO # 0.1 10^3/uL (0.0-0.2); BASO % 1.2 % (0.0-1.0); EOS # 0.7 10^3/uL (0.0-0.5); EOS % 8.2 % (0.0-3.0); HEMATOCRIT 41.7 % (42.0-52.0); LYMPH # 3.4 10^3/uL (1.5-5.0); LYMPH % 39.7 % (24.0-44.0); MEAN CORPUSCULAR HEMOGLOBIN 30.8 pg (27.0-33.0); MEAN CORPUSCULAR HGB CONC 33.6 g/dl (32.0-36.5); MEAN CORPUSCULAR VOLUME 91.6 fl (80.0-96.0); MONO # 0.8 10^3/uL (0.0-0.8); NEUTROPHILS # 3.4 10^3/uL (1.5-8.5); NEUTROPHILS % 40.7 % (36.0-66.0); PLATELET COUNT, AUTOMATED 223 10^3/uL (150-450); RED BLOOD COUNT 4.55 10^6/uL (4.30-6.10); WHITE BLOOD COUNT 8.4 10^3/uL (4.0-10.0)
[2023-10-06 15:13] LABS: INR 1.11
[2023-10-06 15:16] LABS: D-DIMER QUANT 0.32 ug/mL (<0.5)
[2023-10-06 15:27] LABS: ETHYL ALCOHOL (ETHANOL) 0.003 % (0.000-0.010)
[2023-10-06 15:28] LABS: ALBUMIN 3.3 G/DL (3.2-5.2); ALKALINE PHOSPHATASE 64 U/L (46-116); ALT/SGPT 60 U/L (7.0-40); AST/SGOT 30 U/L (<34); BILIRUBIN,DIRECT 0.3 MG/DL (<0.4); BLOOD UREA NITROGEN 19 MG/DL (9-23); CALCIUM LEVEL 8.8 MG/DL (8.3-10.6); CARBON DIOXIDE LEVEL 25 MMOL/L (20-31); CHLORIDE LEVEL 110 MMOL/L (98-107); CREATININE FOR GFR 0.84 MG/DL (0.70-1.30); GLOMERULAR FILTRATION RATE > 60.0 (>49); GLUCOSE, FASTING 91 MG/DL (74-106); SODIUM LEVEL 140 MMOL/L (136-145); TOTAL PROTEIN 6.1 G/DL (5.7-8.2)
[2023-10-06 15:30] LABS: RSV AMPLIFICATION NEGATIVE (NEGATIVE)
[2023-10-06 15:35] LABS: CPK CREATINE PHOSPHOKINASE 97 U/L (46-171); MB/CK RELATIVE INDEX 1.03 (< OR =4)
[2023-10-06] MEDS ORDERED: THERTAB21 PO (18:01)
[2023-10-06] MEDS ORDERED: HOME MED LIST COMPLETE! XX SCH (18:05)
[2023-10-06 18:41] LABS: C REACTIVE PROTEIN QUANTITATIV < 0.40 MG/DL (<1.0)
[2023-10-06 18:54] LABS: PROCALCITONIN <0.04 ng/ml
[2023-10-06 19:00] LABS: ERYTHROCYTE SEDIMENTATION RATE 1 mm/hr (0-20)
[2023-10-06] MEDS: methylPREDNISolone 125MG 2ML VIAL IV ONE (19:01)
[2023-10-06] MEDS: MORPHINE 2 MG/ML 1ML VIAL IV ONE (19:01)
[2023-10-06] MEDS ORDERED: MOM 30ML SUSPENSION UDC PO PRN (22:20)
[2023-10-06] MEDS ORDERED: LORazepam 2 MG TAB PO PRN (22:20)
[2023-10-06] MEDS: BACLOFEN 10 MG TAB PO SCH (23:26)
[2023-10-07] VITALS: BP 145/77; TEMP 98.2; O2SAT 96
[2023-10-07] MEDS: ACETAMINOPHEN TAB 650MG DOSE (2X325MG) PO PRN (00:48)
[2023-10-07] MEDS: LIDOCAINE 5% (LIDODERM) PATCH TD ONE (00:49)
[2023-10-07] MEDS: MORPHINE 2 MG/ML 1ML VIAL IV ONE (00:57)
[2023-10-07] MEDS: predniSONE 20 MG TAB PO SCH (01:07)
[2023-10-07 05:28] VITALS: BP 140/68; TEMP 97.8; O2SAT 97
[2023-10-07 06:00] VITALS: BP 140/68
[2023-10-07 07:17] LABS: HEMATOCRIT 42.6 % (42.0-52.0); HEMOGLOBIN 14.3 g/dl (13.5-17.5); MEAN CORPUSCULAR HEMOGLOBIN 30.1 pg (27.0-33.0); MEAN CORPUSCULAR HGB CONC 33.6 g/dl (32.0-36.5); MEAN CORPUSCULAR VOLUME 89.7 fl (80.0-96.0); PLATELET COUNT, AUTOMATED 254 10^3/uL (150-450); RED BLOOD COUNT 4.75 10^6/uL (4.30-6.10); WHITE BLOOD COUNT 9.3 10^3/uL (4.0-10.0)
[2023-10-07 07:46] LABS: ALBUMIN 3.2 G/DL (3.2-5.2); ALKALINE PHOSPHATASE 88 U/L (46-116); ALT/SGPT 88 U/L (7.0-40); AST/SGOT 42 U/L (<34); BLOOD UREA NITROGEN 23 MG/DL (9-23); CALCIUM LEVEL 9.5 MG/DL (8.3-10.6); CARBON DIOXIDE LEVEL 25 MMOL/L (20-31); CHLORIDE LEVEL 105 MMOL/L (98-107); CREATININE FOR GFR 0.79 MG/DL (0.70-1.30); GLOMERULAR FILTRATION RATE > 60.0 (>49); GLUCOSE, FASTING 178 MG/DL (74-106); POTASSIUM SERUM 4.1 MMOL/L (3.5-5.1); SODIUM LEVEL 137 MMOL/L (136-145); TOTAL PROTEIN 6.8 G/DL (5.7-8.2)
[2023-10-07] MEDS: ENOXAPARIN 40MG/0.4ML SYRINGE (J1650 PER 10MG) SC SCH (09:00)
[2023-10-07] MEDS ORDERED: predniSONE 20 MG TAB PO SCH (09:00)
[2023-10-07] MEDS: FOLIC ACID 1MG TAB PO SCH (09:31)
[2023-10-07] MEDS: THIAMINE 100 MG TAB PO SCH (09:31)
[2023-10-07] MEDS: MULTIVITAMINS/MINERALS THERAP 1 TAB PO SCH (09:31)
[2023-10-07] MEDS: PANTOPRAZOLE 40MG TAB (PROTONIX) PO SCH (09:31)
[2023-10-07] MEDS ORDERED: PRED20TA PO (10:05)
[2023-10-07] MEDS ORDERED: LIDO1PAD TOP (10:05)
== END 2023-10-07 11:20 | disposition home or self-care (01) ==
LOC: M ED 11:29 → EDBD 11:29 → INTOOBSV 22:17 → M ED INP 22:17 → ENRESERV 22:51 → M MS5PR 10-07 00:05
PROVIDERS: ADMIT Family Medicine; ATTEND Internal Medicine
DX: G89.29 Other chronic pain (principal); M62.830 Muscle spasm of back; M54.50 Low back pain, unspecified; M43.26 Fusion of spine, lumbar region; M43.22 Fusion of spine, cervical region; J30.2 Other seasonal allergic rhinitis; I10 Essential (primary) hypertension; E78.5 Hyperlipidemia, unspecified; K21.9 Gastro-esophageal reflux disease without esophagitis; F17.218 Nicotine dependence, cigarettes, with other nicotine-induced disorders; F10.20 Alcohol dependence, uncomplicated; Z79.899 Other long term (current) drug therapy; Z79.52 Long term (current) use of systemic steroids
CPT/HCPCS: 36415; 72131; 72148; 80048; 80053; 80076; 81001; 82077; 82550; 82553; 83605; 84145; 84484; 85025; 85027; 85379; 85610; 85652; 86140; 87631; 93005; 96374; 96375; 96376; 97161; 99285; J2930; J7512

== ENCOUNTER → 2023-10-08 | Outpatient (CLI) | payer OTHER ==
[~2023-10-08] MED LIST changes: +LIDO1PAD TOP; +POTA1TAB23 PO; +PRED20TA PO; +THERTAB21 PO
== END ==
LOC: M PAIN 09:45
PROVIDERS: ATTEND Nurse Practitioner Family
DX: M79.18 Myalgia, other site (principal); M96.1 Postlaminectomy syndrome, not elsewhere classified; M54.2 Cervicalgia; K21.9 Gastro-esophageal reflux disease without esophagitis; I10 Essential (primary) hypertension; F17.210 Nicotine dependence, cigarettes, uncomplicated; Z79.891 Long term (current) use of opiate analgesic; Z79.899 Other long term (current) drug therapy

== ENCOUNTER → 2023-10-12 | Outpatient (CLI) | payer OTHER | LOC: M PAIN 09:00 | PROVIDERS: ATTEND Anesthesiology | DX: M47.816 Spondylosis without myelopathy or radiculopathy, lumbar region (principal); M96.1 Postlaminectomy syndrome, not elsewhere classified; G89.29 Other chronic pain; M54.2 Cervicalgia; K21.9 Gastro-esophageal reflux disease without esophagitis; I10 Essential (primary) hypertension; Z87.891 Personal history of nicotine dependence; Z79.899 Other long term (current) drug therapy | CPT/HCPCS: 76000; G0463 ==

== ENCOUNTER → 2023-11-02 | Outpatient (CLI) | payer OTHER ==
[~2023-11-02] MED LIST changes: +ISOVUE-M 300 61% 15ML VIAL As Ordered ONE; +LIDOCAINE 1% SDV 30ML VIAL As Ordered ONE; +TRIAMCINOLONE ACETONIDE SUSP 40MG/ML 1ML VIAL As Ordered ONE; +diazePAM 5MG TABLET As Ordered ONE; +oxyCODONE 5MG TAB As Ordered ONE
== END ==
LOC: M PAIN 13:00
PROVIDERS: ATTEND Anesthesiology
DX: M47.816 Spondylosis without myelopathy or radiculopathy, lumbar region (principal); G89.29 Other chronic pain; M54.2 Cervicalgia; K21.9 Gastro-esophageal reflux disease without esophagitis; I10 Essential (primary) hypertension; F17.200 Nicotine dependence, unspecified, uncomplicated
CPT/HCPCS: 64493; 64494; J0665; J3301; Q9967

== ENCOUNTER → 2023-11-13 | Outpatient (CLI) | payer OTHER ==
[~2023-11-13] MED LIST changes: -ISOVUE-M 300 61% 15ML VIAL As Ordered ONE; -LIDOCAINE 1% SDV 30ML VIAL As Ordered ONE; -TRIAMCINOLONE ACETONIDE SUSP 40MG/ML 1ML VIAL As Ordered ONE; -diazePAM 5MG TABLET As Ordered ONE; -oxyCODONE 5MG TAB As Ordered ONE
== END ==
LOC: M PAIN 16:30
PROVIDERS: ATTEND Anesthesiology
DX: M96.1 Postlaminectomy syndrome, not elsewhere classified (principal); G89.29 Other chronic pain; M54.2 Cervicalgia; K21.9 Gastro-esophageal reflux disease without esophagitis; I10 Essential (primary) hypertension; Z87.891 Personal history of nicotine dependence

== ENCOUNTER 2024-07-24 18:41 | Emergency (ER) | payer OTHER ==
[~2024-07-24] VITALS: Ht 170.2 cm; Wt 81.8 kg
[~2024-07-24 18:41] MED LIST changes: -ROSU40TA4 PO; +ROSU40TA81 PO
[2024-07-24] MEDS: MORPHINE 2 MG/ML 1ML VIAL IV ONE (19:40)
[2024-07-24] MEDS: diazePAM 10MG/2ML SYRINGE IV ONE (19:40)
[2024-07-24 20:19] LABS: BASO # 0.1 10^3/uL (0.0-0.2); BASO % 0.8 % (0.0-1.0); EOS # 0.5 10^3/uL (0.0-0.5); EOS % 5.2 % (0.0-3.0); HEMATOCRIT 40.8 % (42.0-52.0); HEMOGLOBIN 13.8 g/dl (13.5-17.5); LYMPH # 3.7 10^3/uL (1.5-5.0); LYMPH % 40.4 % (24.0-44.0); MEAN CORPUSCULAR HEMOGLOBIN 30.1 pg (27.0-33.0); MEAN CORPUSCULAR HGB CONC 33.8 g/dl (32.0-36.5); MEAN CORPUSCULAR VOLUME 88.9 fl (80.0-96.0); MONO % 10.5 % (2.0-8.0); NEUTROPHILS # 3.9 10^3/uL (1.5-8.5); NEUTROPHILS % 42.6 % (36.0-66.0); PLATELET COUNT, AUTOMATED 255 10^3/uL (150-450); RED BLOOD COUNT 4.59 10^6/uL (4.30-6.10); WHITE BLOOD COUNT 9.3 10^3/uL (4.0-10.0)
[2024-07-24 20:50] LABS: C REACTIVE PROTEIN QUANTITATIV < 0.40 MG/DL (<1.0)
[2024-07-24 20:51] LABS: BLOOD UREA NITROGEN 17 MG/DL (9-23); CALCIUM LEVEL 9.3 MG/DL (8.3-10.6); CARBON DIOXIDE LEVEL 28 MMOL/L (20-31); CHLORIDE LEVEL 104 MMOL/L (98-107); CREATININE FOR GFR 0.77 MG/DL (0.70-1.30); GLOMERULAR FILTRATION RATE > 60.0 (>49); GLUCOSE, FASTING 99 MG/DL (74-106); POTASSIUM SERUM 3.8 MMOL/L (3.5-5.1); SODIUM LEVEL 138 MMOL/L (136-145)
[2024-07-24] MEDS: diazePAM 10MG/2ML SYRINGE IM ONE (21:11)
[2024-07-24] MEDS: methylPREDNISolone 125MG 2ML VIAL IV ONE (21:12)
[2024-07-24] MEDS: PERCOCET 5MG/325MG TAB PO ONE (21:12)
[2024-07-24] MEDS ORDERED: VALI5TAB PO (23:22)
[2024-07-24] MEDS ORDERED: PERC5TAB12 PO (23:22)
[2024-07-24 23:39] VITALS: BP 138/76; TEMP 97.1; O2SAT 95
[2024-07-24] MEDS: OXYCODONE/APAP 5MG/325MG(HOME DOSE PACK) PO ONE (23:50)
[2024-07-24] MEDS: diazePAM 5MG TABLET PO ONE (23:51)
== END 2024-07-24 23:59 | disposition home or self-care (01) ==
LOC: EDBD 18:41 → M ED 18:41
DX: M54.32 Sciatica, left side (principal); M62.830 Muscle spasm of back; M25.78 Osteophyte, vertebrae; M51.360 Other intervertebral disc degeneration, lumbar region with discogenic back pain only; I10 Essential (primary) hypertension; F41.9 Anxiety disorder, unspecified; F32.A Depression, unspecified; K21.9 Gastro-esophageal reflux disease without esophagitis; E55.9 Vitamin D deficiency, unspecified; Z91.048 Other nonmedicinal substance allergy status; Z79.899 Other long term (current) drug therapy; Z79.52 Long term (current) use of systemic steroids
CPT/HCPCS: 72128; 72131; 80048; 85025; 86140; 96372; 96374; 96375; 99285; J2919; J3360

== ENCOUNTER → 2024-10-14 | Outpatient (CLI) | payer OTHER | LOC: M RAD 15:42 | PROVIDERS: ATTEND Orthopaedic Surgery | DX: M51.16 Intervertebral disc disorders with radiculopathy, lumbar region (principal); M51.46 Schmorl's nodes, lumbar region; Z98.1 Arthrodesis status ==

== ENCOUNTER → 2024-11-13 | Outpatient (CLI) | payer OTHER | LOC: M PLAIMG 10:59 | PROVIDERS: ATTEND Internal Medicine | DX: M54.17 Radiculopathy, lumbosacral region (principal); Z98.1 Arthrodesis status ==